=== PATIENT | female | born 1935 | race Caucasian/White ===

== ENCOUNTER 2018-03-09 17:41 | Emergency (ER) | payer MEDICARE, OTHER ==
[2018-03-09 17:59] LABS: CHLORIDE,CL 103 mEq/L (98-106); SODIUM,NA 143 mEq/L (136-145)
--- NOTE | 2018-03-09 18:02 | EDM.PDOC ---
ED HPI GENERAL MEDICAL PROBLEM - General Chief Complaint: Head Injury Stated Complaint: fall with head trauma Time Seen by Provider: 03/09/18 17:45 Source of Information: Reports: Patient, EMS History Limitations: Reports: No Limitations - History of Present Illness INITIAL COMMENTS - FREE TEXT/NARRATIVE: Patient presents to ER after slipping on the ice and falling face forward outside the [place] in [place]. No loss of consciousness. Admits to mild discomfort to forehead, hematoma noted there with active bleeding on ambulance arrival. Bleeding has been controlled by EMS. Patient denies any chest discomfort, no shortness of breath, pelvic pain or leg pain. Was able to get up with assistance at that scene. Does have chronic shoulder discomfort, no worse now after the fall. Onset: Today, Sudden Duration: Minutes:, Improving Location: Reports: Head, Face Quality: Reports: Ache, Dull Severity: Mild Associated Symptoms: Denies: Confusion, Chest Pain, Cough, Fever/Chills, Loss of Appetite, Nausea/Vomiting, Shortness of Breath, Weakness Treatments CLINICAL APPLICATION CONSULTANT: Reports: Dressing(s) R forehead Pain Score (Numeric/FACES): 8 - Related Data Allergies Allergy/AdvReac Type Severity Reaction Status Date / Time No Known Allergies Allergy Verified 03/09/18 18:52 Home Meds: Home Meds Amoxicillin/Clavulanate K [Augmentin 875 MG] 1 tab PO BID PRN 07/21/13 [History] Aspirin [Halfprin] 81 mg PO DAILY 07/21/13 [History] Calcium Carbonate/Vitamin D3 [Calcium 600 + Vit D Tablet] 1 each PO DAILY [History] Carvedilol 6.25 mg PO BID 07/21/13 [History] Cholecalciferol (Vitamin D3) [Vitamin D3] 2,000 unit PO DAILY 07/21/13 [History] DULoxetine [Cymbalta] 60 mg PO DAILY 07/21/13 [History] Furosemide 40 mg PO BID 07/21/13 [History] Gabapentin 300 mg PO TID PRN 07/21/13 [History] Magnesium 500 mg PO DAILY 07/21/13 [History] Quinapril HCl 5 mg PO BID 07/21/13 [History] SitaGLIPtin [Januvia] 100 mg PO DAILY 07/21/13 [History] Vitamin B Complex [B Complex] 1 each PO DAILY 07/21/13 [History] atorvaSTATin Calcium [Atorvastatin Calcium] 20 mg PO DAILY 07/21/13 [History] Warfarin [Coumadin] 5 mg PO DAILY #0 03/21/15 [Rx] Multivitamin [Multivitamins] 1 cap PO DAILY 03/09/18 [History] Nitroglycerin [Nitrostat] 0.4 mg SL ASDIRECTED PRN 03/09/18 [History] Potassium Chloride [Micro-K] 10 meq PO BID 03/09/18 [History] Warfarin [Coumadin] 2.5 mg PO DAILY 03/09/18 [History] metOLazone [Metolazone] 2.5 mg PO DAILY PRN 03/09/18 [History] ED ROS GENERAL - Review of Systems Review Of Systems: See Below Constitutional: Denies: Fever, Chills, Malaise, Weakness, Fatigue, Decreased Appetite HEENT: Denies: Ear Discharge, Nosebleed, Rhinitis, Throat Pain, Vision Change Respiratory: Denies: Shortness of Breath, Cough Cardiovascular: Denies: Chest Pain, Edema, Lightheadedness Endocrine: Denies: Fatigue GI/Abdominal: Denies: Abdominal Pain, Nausea, Vomiting : Reports: No Symptoms Musculoskeletal: Reports: Shoulder Pain Skin: Reports: Bruising, Wound Neurological: Denies: Confusion, Dizziness, Headache, Syncope, Trouble Speaking , Difficulty Walking, Change in Speech, Gait Disturbance ED EXAM, HEAD INJURY - Physical Exam Exam: See Below Text/Narrative:: Patient presents to ER per EMS Primary survey: Airway patent, lungs clear. Vital signs stable No pelvic pain with palpation GCS 15 Exam Limited By: No Limitations General Appearance: Alert, WD/WN, No Apparent Distress Head: Scalp Abrasions, Scalp Hematoma, Scalp Tenderness Nexus Criteria: No: Posterior, Midline Cervical Tenderness, Evidence of Intoxication, Altered Level of Consciousness, Focal Neurological Deficit, Painful Distraction Injuries Eyes: Bilateral Eye: EOMI, PERRL Ears: Normal External Exam, Normal TMs Nose: Normal Inspection, Normal Mucousa, No Blood Throat/Mouth: Normal Inspection, Normal Oropharynx Neck: Non-Tender, Full Range of Motion Respiratory: No Respiratory Distress, Lungs Clear, Normal Breath Sounds Cardiovascular: Regular Rate, Rhythm GI/Abdominal Exam: Normal Bowel Sounds, Soft, Non-Tender Back Exam: Normal Inspection Extremities: Normal Inspection, Normal Range of Motion Neurologic: tactical air control party II-XII nml As Tested, No Motor/Sensory Deficits, Alert, Normal Mood/Affect, Oriented x 3 Skin: Other (small hematoma to forehead with superficial abrasion, no active bleeding noted.) - Anca Coma Score Best Eye Response (Anca): (4) Open Spontaneously Best Verbal Response (Anca): (5) Oriented Best Motor Response (Anca): (6) Obeys Commands Course - Vital Signs Last Recorded V/S: Last Vital Signs Temp 97.4 F 03/09/18 18:00 Pulse 70 03/09/18 18:00 Resp 20 03/09/18 18:00 BP 112/54 L 03/09/18 18:00 Pulse Ox 97 03/09/18 18:00 - Orders/Labs/Meds Orders: Active Orders 24 hr Category Date Time Status Cervical Spine wo Cont [CT] Stat Exams 03/09/18 17:54 Taken Chest 2V [CR] Stat Exams 03/09/18 17:54 Taken Head wo Cont [CT] Stat Exams 03/09/18 18:26 Taken Pelvis 1V or 2V [CR] Stat Exams 03/09/18 17:54 Taken Labs: Laboratory Tests 03/09/18 03/09/18 03/09/18 Range/Units 17:46 17:46 17:46 WBC 7.9 (5.0-10.0) 10^3/uL RBC 4.02 (4.00-5.50) 10^6/uL Hgb 11.8 L (12.0-16.0) g/dL Hct 36.8 L (37.0-47.0) % MCV 91.5 (82.0-94.0) fL MCH 29.4 (27.0-32.0) pg MCHC 32.1 L (33.0-38.0) g/dL RDW Coeff of Zia 14.9 (11.0-15.0) % Plt Count 202 (150-400) 10^3/uL Neut % (Auto) 58.1 (35-85) % Lymph % (Auto) 20.5 (10-55) % [place] % (Auto) 15.9 (0-16) % Eos % (Auto) 4.4 (0-5) % Baso % (Auto) 1.1 (0-3) % Neut # (Auto) 4.58 (1.80-7.00) 10^3/uL Lymph # (Auto) 1.62 (1.00-4.80) 10^3/uL [place] # (Auto) 1.26 H (0.00-0.80) 10^3/uL Eos # (Auto) 0.35 (0.00-0.45) 10^3/uL Baso # (Auto) 0.09 10^3/uL PT 28.8 H (9.7-12.3) SEC INR 3.00 H (0.92-1.18) Sodium 143 (136-145) mEq/L Potassium 3.7 (3.5-5.0) mEq/L Chloride 103 (98-106) mEq/L Carbon Dioxide 32 (21-32) mmol/L BUN 22 H (7-18) mg/dL Creatinine 1.3 H (0.6-1.0) mg/dL Est Cr Clr Drug Dosing TNP Estimated GFR (MDRD) 39 L (>=60) mL/min Glucose 127 H (75-99) mg/dL Calcium 8.6 (8.4-10.1) mg/dL Amylase 30 (25-115) U/L - Re-Assessments/Exams Free Text/Narrative Re-Assessment/Exam: 03/09/18 19:29 Chest xray clear Pelvic xray clear CT scan of head and neck without acute changes. GCS still 15. Departure - Departure Time of Disposition: 19:30 Disposition: Home, Self-Care 01 Condition: Good Clinical Impression: Closed head injury Qualifiers: Encounter type: initial encounter Qualified Code(s): S09.90XA - Unspecified injury of head, initial encounter - Discharge Information *PRESCRIPTION DRUG MONITORING PROGRAM REVIEWED*: No *COPY OF PRESCRIPTION DRUG MONITORING REPORT IN PATIENT KARLY: No Instructions: Head Injury, Adult, [id number] Forms: ED Department Discharge Additional Instructions: 1. Rest 2. Ice to forehead 3. Head injury instructions~ return if changes 4. Tylenol as needed for headache 5. Call or return with any questions - My Orders Last 24 Hours: My Active Orders 03/09/18 17:54 Cervical Spine wo Cont [CT] Stat Chest 2V [CR] Stat Pelvis 1V or 2V [CR] Stat 03/09/18 18:26 Head wo Cont [CT] Stat - Assessment/Plan Last 24 Hours: My Active Orders 03/09/18 17:54 Cervical Spine wo Cont [CT] Stat Chest 2V [CR] Stat Pelvis 1V or 2V [CR] Stat 03/09/18 18:26 Head wo Cont [CT] Stat
[2018-03-09 18:16] VITALS: BP 112/54
[2018-03-09] MEDS ORDERED: Diphtheria,Pertussis(Acell),Tetanus Vaccine 0.5 ML Syringe IM ONE (19:38)
== END 2018-03-09 20:00 | disposition home or self-care (01) ==
LOC: CC.ED 17:41
DX: S00.83XA Contusion of other part of head, initial encounter (principal); S09.90XA Unspecified injury of head, initial encounter; Z79.82 Long term (current) use of aspirin; Z79.899 Other long term (current) drug therapy; Z79.01 Long term (current) use of anticoagulants; Z23 Encounter for immunization; W00.0XXA Fall on same level due to ice and snow, initial encounter
CPT/HCPCS: 36415; 70450; 71046; 72125; 72170; 80048; 82150; 85025; 85610; 90471; 90715; 99283; 99284

== ENCOUNTER 2019-06-24 14:23 | Emergency (ER) | payer MEDICARE, OTHER ==
--- NOTE | 2019-06-24 15:32 | EDM.PDOC ---
ED HPI GENERAL MEDICAL PROBLEM - General Chief Complaint: General Stated Complaint: fall with facial injuries Time Seen by Provider: 06/24/19 15:00 Source of Information: Reports: Patient History Limitations: Reports: No Limitations - History of Present Illness INITIAL COMMENTS - FREE TEXT/NARRATIVE: This patient is an 84 year old female that presents to the ER. Patient reports that she was walking into the garage and missed step down, fell one step. Patient reports landing on her left face. Patient reports left sided facial pain and tenderness with swelling. Patient reports that she knocked out her right two upper teeth. Patient reports she did not have loc. She denies leon, dizziness, n, v, vision changes, or other pain complaints. She is alert and oriented. No blood thinners. She arrives via EMS in [place]. Onset: Today Onset Date: 06/24/19 Location: Reports: Face Front/Back Body Image: 1 - laceration 2 - abrasion 3 - pain, swelling, tenderness, ecchymosis. Associated Symptoms: Denies: Confusion, Chest Pain, Cough, cough w sputum, Diaphoresis, Fever/Chills, Headaches, Loss of Appetite, Malaise, Nausea/Vomiting , Rash, Seizure, Shortness of Breath, Syncope, Weakness Treatments CASTINGS DRAFTER: Reports: Cold Therapy Face/Facial Pain Score (Numeric/FACES): 4 - Related Data Allergies Allergy/AdvReac Type Severity Reaction Status Date / Time No Known Allergies Allergy Verified 06/24/19 14:44 Home Meds: Home Meds Amoxicillin/Clavulanate K [Augmentin 875 MG] 1 tab PO BID PRN 07/21/13 [History] Aspirin [Halfprin] 81 mg PO DAILY 07/21/13 [History] Calcium Carbonate/Vitamin D3 [Calcium 600 + Vit D Tablet] 1 each PO DAILY [History] Cholecalciferol (Vitamin D3) [Vitamin D3] 2,000 unit PO DAILY 07/21/13 [History] DULoxetine [Cymbalta] 60 mg PO DAILY 07/21/13 [History] Furosemide 40 mg PO BID 07/21/13 [History] Gabapentin 300 mg PO TID PRN 07/21/13 [History] Magnesium 500 mg PO DAILY 07/21/13 [History] Quinapril HCl 5 mg PO DAILY 07/21/13 [History] SitaGLIPtin [Januvia] 100 mg PO DAILY 07/21/13 [History] Vitamin B Complex [B Complex] 1 each PO DAILY 07/21/13 [History] atorvaSTATin Calcium [Atorvastatin Calcium] 20 mg PO DAILY 07/21/13 [History] carvediloL [Carvedilol] 6.25 mg PO BID 07/21/13 [History] Multivitamin [Multivitamins] 1 cap PO DAILY 03/09/18 [History] Nitroglycerin [Nitrostat] 0.4 mg SL ASDIRECTED PRN 03/09/18 [History] Potassium Chloride [Micro-K] 10 meq PO BID 03/09/18 [History] metOLazone [Metolazone] 2.5 mg PO DAILY PRN 03/09/18 [History] Cephalexin [Keflex] 500 mg PO QID #28 capsule 06/24/19 [Rx] Pseudoephedrine HCl [Sudafed 12 Hour] 120 mg PO BID #14 tablet.er 06/24/19 [Rx] Social & Family History - Tobacco Use Smoking Status *Q: Never Smoker ED ROS GENERAL - Review of Systems Review Of Systems: See Below Constitutional: Reports: No Symptoms HEENT: Reports: Dental Pain (right upper teeth knocked out), Other (left facial pain, tenderness, swelling.). Denies: Vision Change Respiratory: Reports: No Symptoms. Denies: Shortness of Breath, Wheezing, Pleuritic Chest Pain, Cough Cardiovascular: Reports: No Symptoms. Denies: Chest Pain, Dyspnea on Exertion, Edema, Lightheadedness, Palpitations, Syncope Endocrine: Reports: No Symptoms GI/Abdominal: Reports: No Symptoms. Denies: Abdominal Pain, Nausea, Vomiting Musculoskeletal: Reports: No Symptoms. Denies: Neck Pain, Shoulder Pain, Arm Pain, Back Pain, Hand Pain, Leg Pain, Foot Pain, Joint Pain, Joint Swelling, Muscle Pain, Muscle Stiffness Skin: Reports: Bruising (left orbital), Wound (abrasion nasal birdge. Laceration above the lip right central, through and through inside mouth. Right hand small skin tear.) Neurological: Reports: No Symptoms Psychiatric: Reports: No Symptoms Hematologic/Lymphatic: Reports: No Symptoms Immunologic: Reports: No Symptoms ED EXAM, GENERAL - Physical Exam Exam: See Below Exam Limited By: No Limitations General Appearance: Alert, WD/WN, No Apparent Distress Eye Exam: Bilateral Eye: EOMI (left eye opened from swelling. ), Normal Inspection, PERRL Ears: Normal External Exam, Normal Canal, Hearing Grossly Normal, Normal TMs Ear Exam: Bilateral Ear: Auricle Normal, Canal Normal, TM normal Nose: Normal Mucosa, No Blood, Other (nasal abrasion right bridge.) Throat/Mouth: Normal Gums, Normal Oropharynx, Normal Voice, No Airway Compromise. No: Normal Lips (laceration just above central right external small , through and through into mouth upper lip.), Normal Teeth (missing extracted tooth right upper molar, and 2nd right upper molar fracture no exposed root.) Head: Facial Swelling (left orbital. Eccyhmosis.), Facial Tenderness (left orbital, inferior. ) Neck: Normal Inspection, Supple, Non-Tender, Other (in [place].). No: Tender Lateral, Tender Midline Respiratory/Chest: No Respiratory Distress, Lungs Clear, Normal Breath Sounds, No Accessory Muscle Use, Chest Non-Tender. No: Respiratory Distress, Decreased Breath Sounds, Crackles, Rales, Rhonchi, Wheezing, Stridor, Accessory Muscle Use , Retractions, Splinting, Prolonged Expiration Cardiovascular: Normal Peripheral Pulses, Regular Rate, Rhythm, No Edema, No Gallop, No JVD, No Rub, Systolic Murmur Peripheral Pulses: 2+: Radial (L), Radial (R), Posterior Tibial (L), Posterior Tibial (R), Dorsalis Pedis (L), Dorsalis Pedis (R) GI/Abdominal: Normal Bowel Sounds, Soft, Non-Tender, No Organomegaly, No Distention, No Abnormal Bruit, No Mass, Pelvis Stable Back Exam: Normal Inspection, Full Range of Motion. No: CVA Tenderness (L), CVA Tenderness (R), Decreased Range of Motion, Muscle Spasm, Paraspinal Tenderness, Vertebral Tenderness Extremities: Normal Inspection, Normal Range of Motion, Non-Tender, No Pedal Edema, Normal Capillary Refill. No: Pedal Edema, Slow Capillary Refill, Joint Swelling, Arm Pain, Leg Pain, Limited Range of Motion, Increased Warmth, Redness Neurological: Alert, Oriented, Normal Cognition, No Motor/Sensory Deficits Psychiatric: Normal Affect, Normal Mood Skin Exam: Warm, Dry, Normal Color, No Rash, Wound/Incision (laceration just above the central right lip small laceration through and through into upper lip inside. Abrasion right nasal bridge small. Right hand skin tear. ) Lymphatic: No Adenopathy ED GENERAL MEDICAL PROCEDURES - Laceration/Wound Repair Upper Mouth Lac/wound length in cm: 2 (inside mouth upper lip) Appearance: Subcutaneous Distal NVT: Neuro & Vascular Intact, No Tendon Injury Anesthetic Type: Local Local Anesthesia - Lidocaine (Xylocaine): 1% Plain Local Anesthetic Volume: 1cc Skin Prep: Chlorhexidine (Hibiciens) Saline irrigation (cc's): 10 Exploration/Debridement/Repair: Wound Explored, In a Bloodless Field, Explored to Base Closed with: Sutures Suture Size: 4-0 # of Sutures: 3 Suture Type: Simple, Other (Vicryl) Tetanus Status Addressed: Yes Complications: No Lower Face Lac/wound length in cm: 0.5 (upper lip external) Appearance: Subcutaneous Distal NVT: Neuro & Vascular Intact, No Tendon Injury Anesthetic Type: Local Local Anesthesia - Lidocaine (Xylocaine): 1% Plain Local Anesthetic Volume: 1cc Skin Prep: Chlorhexidine (Hibiciens) Saline irrigation (cc's): 10 Exploration/Debridement/Repair: Wound Explored, In a Bloodless Field, Explored to Base Closed with: Sutures Suture Size: 4-0 # of Sutures: 2 Suture Type: Simple, Other (Vicryl) Tetanus Status Addressed: Yes Complications: No Course - Vital Signs Last Recorded V/S: Last Vital Signs Temp 97.1 F 06/24/19 14:35 Pulse 65 06/24/19 15:53 Resp 16 06/24/19 15:53 BP 143/65 H 06/24/19 15:53 Pulse Ox 95 06/24/19 15:53 - Orders/Labs/Meds Orders: Active Orders 24 hr Category Date Time Status Cervical Spine wo Cont [CT] Stat Exams 06/24/19 15:14 Taken Head wo Cont [CT] Stat Exams 06/24/19 15:14 Taken Max Facial Sinus wo Cont [CT] Stat Exams 06/24/19 15:14 Taken Labs: Laboratory Tests 06/24/19 06/24/19 Range/Units 16:54 16:54 WBC 12.2 H (5.0-10.0) 10^3/uL RBC 4.25 (4.00-5.50) 10^6/uL Hgb 11.9 L (12.0-16.0) g/dL Hct 37.2 (37.0-47.0) % MCV 87.5 (82.0-94.0) fL MCH 28.0 (27.0-32.0) pg MCHC 32.0 L (33.0-38.0) g/dL RDW Coeff of Zia 18.4 H (11.0-15.0) % Plt Count 177 (150-400) 10^3/uL Neut % (Auto) 76.7 (35-85) % Lymph % (Auto) 9.7 L (10-55) % [place] % (Auto) 10.8 (0-16) % Eos % (Auto) 2.3 (0-5) % Baso % (Auto) 0.5 (0-3) % Neut # (Auto) 9.33 H (1.80-7.00) 10^3/uL Lymph # (Auto) 1.18 (1.00-4.80) 10^3/uL [place] # (Auto) 1.32 H (0.00-0.80) 10^3/uL Eos # (Auto) 0.28 (0.00-0.45) 10^3/uL Baso # (Auto) 0.06 10^3/uL Sodium 143 (136-145) mEq/L Potassium 3.3 L (3.5-5.0) mEq/L Chloride 101 (98-106) mEq/L Carbon Dioxide 32 (21-32) mmol/L BUN 27 H (7-18) mg/dL Creatinine 1.1 H (0.6-1.0) mg/dL Est Cr Clr Drug Dosing 40.50 mL/min Estimated GFR (MDRD) 47 L (>=60) mL/min Glucose 162 H (75-99) mg/dL Calcium 8.8 (8.4-10.1) mg/dL Total Bilirubin 1.3 H (0.0-1.0) mg/dL AST 20 (15-37) U/L ALT 14 (12-78) U/L Alkaline Phosphatase 123 H (46-116) U/L Total Protein 7.0 (6.4-8.2) g/dL Albumin 3.1 L (3.4-5.0) g/dL Meds: Medications Discontinued Medications Generic Name Dose Route Start Last Admin Trade Name Misty PRN Reason Stop Dose Admin Lidocaine HCl 20 ml 06/24/19 17:49 06/24/19 18:30 Xylocaine 1% INJECT 06/24/19 17:50 20 ml ONETIME ONE Administration - Re-Assessments/Exams Free Text/Narrative Re-Assessment/Exam: 06/24/19 17:45 Patient ambulated to the bathroom without difficulty. I discussed patient case and read radiology impression report to Dr. Olson facial surgeon at [facility]. He reports he will see patient Thursday in office. I will discharge patient, see discharge instructions for instructions from Dr. Olson. [place] removed ROM intact. No stepoffs Departure - Departure Time of Disposition: 18:54 Disposition: Home, Self-Care 01 Condition: Fair Clinical Impression: Orbital fracture Qualifiers: Encounter type: initial encounter Fracture type: closed Qualified Code(s): S02.85XA - Fracture of orbit, unspecified, initial encounter for closed fracture Maxillary fracture Qualifiers: Encounter type: initial encounter Fracture type: closed Laterality: left Qualified Code(s): S02.40DA - Maxillary fracture, left side, initial encounter for closed fracture Nasal fracture Qualifiers: Encounter type: initial encounter Fracture type: closed Qualified Code(s): S02.2XXA - Fracture of nasal bones, initial encounter for closed fracture Closed head injury Qualifiers: Encounter type: initial encounter Qualified Code(s): S09.90XA - Unspecified injury of head, initial encounter - Discharge Information *PRESCRIPTION DRUG MONITORING PROGRAM REVIEWED*: Not Applicable *COPY OF PRESCRIPTION DRUG MONITORING REPORT IN PATIENT KARLY: Not Applicable Prescriptions: Cephalexin [Keflex] 500 mg PO QID #28 capsule Pseudoephedrine HCl [Sudafed 12 Hour] 120 mg PO BID #14 tablet.er Instructions: Orbital Floor Fracture Without Entrapment, Zygoma Fracture, Nasal Fracture, [id number], Laceration Care, Adult, Head Injury, Adult, Easy- to-Read, Mouth Laceration Referrals: Jessie Mak PA [Primary Care Provider] - Forms: ED Department Discharge Additional Instructions: Followup with Dr. Olson facial surgeon [facility] His office number is : [phone] Call his office Thursday, tell the nurse you need to be seen Thursday by Dr. Olson Call your dentist Thursday Wash cloth, water, then freezer: Apply to center of face: Keep head elevated, do not sleep or lay flat DO NOT BLOW NOSE FOR 2 WEEKS DO NOT SNEEZE: IF HAVE TO SNEEZE, OPEN MOUTH Keflex 500mg 1 pill four times a day for 7 days #28 no refill Sudafed 120mg ER twice a day #14 no refill Story 5/325mg 1-2 pills every 4-6 hours for pain #24 no refill Sepsis Event Note - Evaluation Sepsis Screening Result: No Definite Risk - Focused Exam Vital Signs: Vital Signs Temp Pulse Resp BP Pulse Ox 06/24/19 15:53 65 16 143/65 H 95 06/24/19 14:57 72 16 147/63 H 94 L 06/24/19 14:35 97.1 F 79 16 144/75 H 16 L Date Exam was Performed: 06/24/19 Time Exam was Performed: 18:51 - My Orders Last 24 Hours: My Active Orders 06/24/19 15:14 Cervical Spine wo Cont [CT] Stat Head wo Cont [CT] Stat Max Facial Sinus wo Cont [CT] Stat - Assessment/Plan Last 24 Hours: My Active Orders 06/24/19 15:14 Cervical Spine wo Cont [CT] Stat Head wo Cont [CT] Stat Max Facial Sinus wo Cont [CT] Stat Plan: PLEASE SEE RN NOTE FOR PFSH.
[2019-06-24 15:55] VITALS: BP 143/65; PULSE 65
[2019-06-24] MEDS: Lidocaine 1% 20 ML MDV INJECT ONE (18:30)
== END 2019-06-24 19:00 | disposition home or self-care (01) ==
LOC: CC.ED 14:23
DX: S02.85XA Fracture of orbit, unspecified, initial encounter for closed fracture (principal); S02.40DA Maxillary fracture, left side, initial encounter for closed fracture; S02.2XXA Fracture of nasal bones, initial encounter for closed fracture; S01.511A Laceration without foreign body of lip, initial encounter; S09.90XA Unspecified injury of head, initial encounter; Z79.82 Long term (current) use of aspirin; Z79.899 Other long term (current) drug therapy; W18.30XA Fall on same level, unspecified, initial encounter
CPT/HCPCS: 12011; 36415; 70450; 70486; 72125; 80053; 85025; 99283; 99284-25; J2001

== ENCOUNTER 2019-07-25 12:35 | Emergency (ER) | payer MEDICARE, OTHER ==
[2019-07-25 13:01] VITALS: PULSE 72
--- NOTE | 2019-07-25 13:21 | EDM.PDOC ---
ED HPI GENERAL MEDICAL PROBLEM - General Chief Complaint: Head Injury Stated Complaint: fall Time Seen by Provider: 07/25/19 12:55 Source of Information: Reports: Patient, RN History Limitations: Reports: No Limitations - History of Present Illness INITIAL COMMENTS - FREE TEXT/NARRATIVE: Pt tripped on cement and fell forward on to face. She is not on any blood thinners. She denies any LOC. She did not want to b brought in but ambulance personnel felt she should be checked out. She has bruising to the right cheek above right eye and bridge of nose. She had tripped about 2 weeks ago and had a nose fracture at that time and broken facial bone o the left. She states that the bruise on her nose is still from that episode. She has swelling to the right cheek bone and ecchymosis to the area. She knocked out the same 2 teeth that she knocked out the last time. (She does have them with her). She denies any neck pain, no chest wall pain, hip, back or extremity pain to any area. GCS is 15 on admission. No bleeding noted. Onset: Today Location: Reports: Face Quality: Reports: Ache Associated Symptoms: Denies: Confusion, Chest Pain Right Cheek Pain Score (Numeric/FACES): 2 - Related Data Allergies Allergy/AdvReac Type Severity Reaction Status Date / Time No Known Allergies Allergy Verified 07/25/19 12:44 Home Meds: Home Meds Amoxicillin/Clavulanate K [Augmentin 875 MG] 1 tab PO BID PRN 07/21/13 [History] Aspirin [Halfprin] 81 mg PO DAILY 07/21/13 [History] Calcium Carbonate/Vitamin D3 [Calcium 600 + Vit D Tablet] 1 each PO DAILY [History] Cholecalciferol (Vitamin D3) [Vitamin D3] 2,000 unit PO DAILY 07/21/13 [History] DULoxetine [Cymbalta] 60 mg PO DAILY 07/21/13 [History] Furosemide 40 mg PO BID 07/21/13 [History] Gabapentin 300 mg PO TID PRN 07/21/13 [History] Magnesium 500 mg PO DAILY 07/21/13 [History] Quinapril HCl 5 mg PO DAILY 07/21/13 [History] SitaGLIPtin [Januvia] 100 mg PO DAILY 07/21/13 [History] Vitamin B Complex [B Complex] 1 each PO DAILY 07/21/13 [History] atorvaSTATin Calcium [Atorvastatin Calcium] 20 mg PO DAILY 07/21/13 [History] carvediloL [Carvedilol] 6.25 mg PO BID 07/21/13 [History] Multivitamin [Multivitamins] 1 cap PO DAILY 03/09/18 [History] Nitroglycerin [Nitrostat] 0.4 mg SL ASDIRECTED PRN 03/09/18 [History] Potassium Chloride [Micro-K] 10 meq PO BID 03/09/18 [History] metOLazone [Metolazone] 2.5 mg PO DAILY PRN 03/09/18 [History] Pseudoephedrine HCl [Sudafed 12 Hour] 120 mg PO BID #14 tablet.er 06/24/19 [Rx] Past Medical History HEENT History: Reports: Cataract Cardiovascular History: Reports: Blood Clots/VTE/DVT, High Cholesterol, Hypertension, Pacemaker Gastrointestinal History: Reports: Cholelithiasis Genitourinary History: Reports: Urinary Incontinence [employer] PU[employer]ER History: Reports: Fibroids Musculoskeletal History: Reports: Osteoarthritis, Osteoporosis Endocrine/Metabolic History: Reports: Diabetes, Type II, Osteoporosis, Vitamin D Deficiency Oncologic (Cancer) History: Reports: Lymphoma - Past Surgical History HEENT Surgical History: Reports: Cataract Surgery Cardiovascular Surgical History: Reports: Valve Replacement GI Surgical History: Reports: Appendectomy, Cholecystectomy, Other (See Below) Other GI Surgeries/Procedures: splenectomy Female Surgical History: Reports: Hysterectomy, Other (See Below) Other Female Surgeries/Procedures: hysterectomy secondary to uterine fibroids Musculoskeletal Surgical History: Reports: Arthroscopic Knee, Other (See Below) Other Musculoskeletal Surgeries/Procedures:: states her left shoulder is "shot" secondary to arthritis; states "should be replaced" Social & Family History - Tobacco Use Smoking Status *Q: Never Smoker - Living Situation & Occupation Living situation: Reports: , Alone Occupation: Retired ED ROS GENERAL - Review of Systems Review Of Systems: See Below Constitutional: Denies: Fever, Chills HEENT: Reports: Other (see HPI) Respiratory: Reports: No Symptoms Cardiovascular: Reports: No Symptoms GI/Abdominal: Reports: No Symptoms Musculoskeletal: Denies: Neck Pain, Shoulder Pain, Arm Pain, Back Pain, Hand Pain, Leg Pain Skin: Reports: Wound (right cheek abrasion and bruising and swelling.) Neurological: Denies: Confusion, Dizziness, Headache, Numbness, Weakness Psychiatric: Reports: No Symptoms ED EXAM, HEAD INJURY - Physical Exam Exam: See Below Exam Limited By: No Limitations General Appearance: Alert, WD/WN, Mild Distress Head: Facial Ecchymosis (right cheek and around right eye.), Facial Lacerations (small abrasion to the right facial area.), Facial Swelling (right side of face) , Facial Tenderness. No: Scalp Lacerations, Scalp Swelling, Active Bleeding, Eugene's Sign, Sinus Tenderness Nexus Criteria: No: Posterior, Midline Cervical Tenderness, Evidence of Intoxication, Altered Level of Consciousness, Focal Neurological Deficit, Painful Distraction Injuries Ears: Normal External Exam, Normal Canal, Normal TMs Nose: Nasal Swelling (bruising across the bridge of nose from previous fall and nasal fracture.), Nasal Ecchymosis. No: Septal Deformity Throat/Mouth: Normal Inspection, Normal Oropharynx, Normal Voice, No Airway Compromise Neck: Non-Tender, Full Range of Motion, Normal Alignment, Normal Inspection Respiratory: No Respiratory Distress, Lungs Clear, Normal Breath Sounds Cardiovascular: Normal Peripheral Pulses, No Edema, Irregularly Irregular GI/Abdominal Exam: Normal Bowel Sounds, Soft, Non-Tender Back Exam: Normal Inspection Extremities: Normal Inspection, Normal Range of Motion, Non-Tender, Normal Capillary Refill Neurologic: Alert, Normal Mood/Affect, Oriented x 3 Skin: Normal Color, Warm/Dry - Anca Coma Score Best Eye Response (Anca): (4) Open Spontaneously Best Verbal Response (Anca): (5) Oriented Best Motor Response ([place]): (6) Obeys Commands Anca Total: 15 Course - Vital Signs Last Recorded V/S: Last Vital Signs Temp 98 F 07/25/19 12:49 Pulse 72 07/25/19 12:49 Resp 16 07/25/19 12:49 BP 151/84 H 07/25/19 12:49 Pulse Ox 93 L 07/25/19 12:49 - Orders/Labs/Meds Orders: Active Orders 24 hr Category Date Time Status Max Facial Sinus wo Cont [CT] Stat Exams 07/25/19 12:43 Taken - Re-Assessments/Exams Free Text/Narrative Re-Assessment/Exam: 07/25/19 13:[address] scan as reported by radiologist as no new fractures at this time. Previous fractures are healing. GCS on discharge is 15. Departure - Departure Time of Disposition: 13:34 Disposition: Home, Self-Care 01 Condition: Good Clinical Impression: Fall (on)(from) sidewalk curb, initial encounter - Discharge Information *PRESCRIPTION DRUG MONITORING PROGRAM REVIEWED*: Not Applicable *COPY OF PRESCRIPTION DRUG MONITORING REPORT IN PATIENT KARLY: Not Applicable Instructions: Facial or Scalp Contusion, [id number] Referrals: Jessie Mak PA [Primary Care Provider] - Additional Instructions: Tylenol as needed for discomfort Use cane when up and especially when outside Recheck if any new concerns noted. Ice to face to help with swelling. Sepsis Event Note - Evaluation Sepsis Screening Result: No Definite Risk - Focused Exam Vital Signs: Vital Signs Temp Pulse Resp BP Pulse Ox 07/25/19 12:49 98 F 72 16 151/84 H 93 L Date Exam was Performed: 07/25/19 Time Exam was Performed: 13:14 - Problem List & Annotations (1) Fall (on)(from) sidewalk curb, initial encounter SNOMED Code(s): 343660837 Code(s): W10.1XXA - FALL (ON)(FROM) SIDEWALK CURB, INITIAL ENCOUNTER Status : Acute Current Visit: Yes - My Orders Last 24 Hours: My Active Orders 07/25/19 12:43 Max Facial Sinus wo Cont [CT] Stat - Assessment/Plan Last 24 Hours: My Active Orders 07/25/19 12:43 Max Facial Sinus wo Cont [CT] Stat
[2019-07-25 13:27] VITALS: BP 154/88
== END 2019-07-25 14:01 | disposition home or self-care (01) ==
LOC: CC.ED 12:35
DX: S01.81XA Laceration without foreign body of other part of head, initial encounter (principal); I10 Essential (primary) hypertension; E11.9 Type 2 diabetes mellitus without complications; E78.00 Pure hypercholesterolemia, unspecified; M19.90 Unspecified osteoarthritis, unspecified site; Z86.718 Personal history of other venous thrombosis and embolism; Z79.82 Long term (current) use of aspirin; Z79.899 Other long term (current) drug therapy; W10.1XXA Fall (on)(from) sidewalk curb, initial encounter
CPT/HCPCS: 70486; 99284; 99284-25

== ENCOUNTER 2020-06-10 13:33 | Emergency (ER) | payer MEDICARE, OTHER ==
[2020-06-10 13:43] VITALS: PULSE 70
[2020-06-10 13:56] VITALS: BP 161/79
--- NOTE | 2020-06-10 15:08 | EDM.PDOC ---
ED HPI GENERAL MEDICAL PROBLEM - General Chief Complaint: General Stated Complaint: swollen legs, L) arm pain and swelling Time Seen by Provider: 06/10/20 13:55 Source of Information: Reports: Patient History Limitations: Reports: No Limitations - History of Present Illness INITIAL COMMENTS - FREE TEXT/NARRATIVE: Roseline presents to ER with complaints of left upper arm pain. Had fallen this last Thursday and has noted that the "lump" on her arm is worsening and now there is bruising down her forearm. Has arthritis and limited range of motion of her shoulder normally, more discomfort now. Has "a floor burn" to her left shoulder. Also relates that she has noticed increased swelling in her legs. Did contact Dr. García office as has been building up over the last few weeks. He advised her he would like to see her when he comes to [place]. She did take a Metolazone yesterday as thought it may help the swelling. Does have dyspnea with exertion but does not feel that is any different than her norm. No shortness of breath at rest. States her legs are more tight than normal. Onset: Gradual Duration: Day(s):, Getting Worse Location: Reports: Upper Extremity, Left, Lower Extremity, Left, Lower Extremity, Right Quality: Reports: Ache Severity: Mild Improves with: Reports: Movement Associated Symptoms: Reports: Shortness of Breath. Denies: Confusion, Chest Pain, Cough, Fever/Chills, Loss of Appetite, Nausea/Vomiting Left Arm Pain Score (Numeric/FACES): 4 Bilateral Lower Leg Pain Score (Numeric/FACES): 2 - Related Data Allergies Allergy/AdvReac Type Severity Reaction Status Date / Time No Known Allergies Allergy Verified 06/10/20 13:34 Home Meds: Home Meds Aspirin [Halfprin] 81 mg PO DAILY 07/21/13 [History] Calcium Carbonate/Vitamin D3 [Calcium 600 + Vit D Tablet] 1 each PO DAILY 07/21/13 [History] Cholecalciferol (Vitamin D3) [Vitamin D3] 2,000 unit PO DAILY 07/21/13 [History] DULoxetine [Cymbalta] 60 mg PO DAILY 07/21/13 [History] Furosemide 40 mg PO BID 07/21/13 [History] Gabapentin 300 mg PO TID PRN 07/21/13 [History] Magnesium 500 mg PO DAILY 07/21/13 [History] Quinapril HCl 5 mg PO DAILY 07/21/13 [History] SitaGLIPtin [Januvia] 100 mg PO DAILY 07/21/13 [History] Vitamin B Complex [B Complex] 1 each PO DAILY 07/21/13 [History] atorvaSTATin Calcium [Atorvastatin Calcium] 20 mg PO DAILY 07/21/13 [History] carvediloL [Carvedilol] 6.25 mg PO BID 07/21/13 [History] Multivitamin [Multivitamins] 1 cap PO DAILY 03/09/18 [History] Nitroglycerin [Nitrostat] 0.4 mg SL ASDIRECTED PRN 03/09/18 [History] Potassium Chloride [Micro-K] 10 meq PO BID 03/09/18 [History] metOLazone [Metolazone] 2.5 mg PO DAILY PRN 03/09/18 [History] Past Medical History HEENT History: Reports: Cataract Cardiovascular History: Reports: Blood Clots/VTE/DVT, High Cholesterol, Hyperten gage, Pacemaker Gastrointestinal History: Reports: Cholelithiasis Genitourinary History: Reports: Urinary Incontinence [employer]LE[employer] WORKER History: Reports: Fibroids Musculoskeletal History: Reports: Osteoarthritis, Osteoporosis Psychiatric History: Reports: Anxiety Endocrine/Metabolic History: Reports: Diabetes, Type II, Osteoporosis, Vitamin D Deficiency Oncologic (Cancer) History: Reports: Lymphoma - Past Surgical History HEENT Surgical History: Reports: Cataract Surgery, Naso-Sinus Surgery Cardiovascular Surgical History: Reports: Valve Replacement GI Surgical History: Reports: Appendectomy, Cholecystectomy, Other (See Below) Other GI Surgeries/Procedures: splenectomy Female Surgical History: Reports: Hysterectomy, Other (See Below) Other Female Surgeries/Procedures: hysterectomy secondary to uterine fibroids Musculoskeletal Surgical History: Reports: Arthroscopic Knee, Other (See Below) Other Musculoskeletal Surgeries/Procedures:: states her left shoulder is "shot" secondary to arthritis; states "should be replaced" Social & Family History - Family History Family Medical History: No Pertinent Family History - Tobacco Use Tobacco Use Status *Q: Never Tobacco User Second Hand Smoke Exposure: No - Caffeine Use Caffeine Use: Reports: None - Recreational Drug Use Recreational Drug Use: No - Living Situation & Occupation Living situation: Reports: , Alone Occupation: Retired ED ROS GENERAL - Review of Systems Review Of Systems: See Below Constitutional: Reports: Weakness. Denies: Fever, Chills, Malaise, Fatigue HEENT: Denies: Ear Pain, Sinus Problem, Throat Pain, Vertigo Respiratory: Denies: Shortness of Breath Cardiovascular: Reports: Dyspnea on Exertion (chronic in nature), Edema. Denies: Chest Pain, Blood Pressure Problem, Lightheadedness Endocrine: Reports: Fatigue GI/Abdominal: Denies: Abdominal Pain, Nausea, Vomiting : Reports: No Symptoms Musculoskeletal: Reports: Arm Pain Skin: Reports: Bruising Neurological: Reports: Weakness Psychiatric: Reports: No Symptoms ED EXAM, GENERAL - Physical Exam Exam: See Below Exam Limited By: No Limitations General Appearance: Alert, WD/WN, No Apparent Distress Ears: Normal External Exam, Normal TMs Nose: Normal Inspection, Normal Mucosa, No Blood Throat/Mouth: Normal Inspection, Other (mucous membranes dry) Head: Normocephalic Neck: Normal Inspection, Supple, Non-Tender Respiratory/Chest: Decreased Breath Sounds Cardiovascular: Irregularly Irregular GI/Abdominal: Normal Bowel Sounds, Soft, Non-Tender Extremities: Other (left upper arm does have large hematoma, bruising down to forearm. Tender to mid humerus. Has limited range of motion to left shoulder, abrasion and redness to posterior shoulder region. Crepitus noted to left shoulder with movement) Neurological: Alert, Oriented Skin Exam: Warm, Dry, Ecchymosis Course - Vital Signs Last Recorded V/S: Last Vital Signs Temp 96.8 F L 06/10/20 13:39 Pulse 70 06/10/20 13:39 Resp 18 06/10/20 13:39 BP 161/79 H 06/10/20 13:56 Pulse Ox 94 L 06/10/20 13:39 - Orders/Labs/Meds Orders: Active Orders 24 hr Category Date Time Status Chest 2V [CR] Stat Exams 06/10/20 14:12 Taken Humerus Lt [CR] Stat Exams 06/10/20 14:07 Taken Labs: Laboratory Tests 06/10/20 06/10/20 Range/Units 13:52 13:52 WBC 7.3 (5.0-10.0) 10^3/uL RBC 4.06 (4.00-5.50) 10^6/uL Hgb 11.7 L (12.0-16.0) g/dL Hct 35.5 L (37.0-47.0) % MCV 87.4 (82.0-94.0) fL MCH 28.8 (27.0-32.0) pg MCHC 33.0 (33.0-38.0) g/dL RDW Coeff of Zia 18.8 H (11.0-15.0) % Plt Count 174 (150-400) 10^3/uL Neut % (Auto) 64.6 (35-85) % Lymph % (Auto) 16.0 (10-55) % Converse % (Auto) 15.6 (0-16) % Eos % (Auto) 3.0 (0-5) % Baso % (Auto) 0.8 (0-3) % Neut # (Auto) 4.70 (1.80-7.00) 10^3/uL Lymph # (Auto) 1.17 (1.00-4.80) 10^3/uL [place] # (Auto) 1.14 H (0.00-0.80) 10^3/uL Eos # (Auto) 0.22 (0.00-0.45) 10^3/uL Baso # (Auto) 0.06 10^3/uL Sodium 144 (136-145) mEq/L Potassium 3.7 (3.5-5.0) mEq/L Chloride 103 (98-106) mEq/L Carbon Dioxide 29 (21-32) mmol/L BUN 20 H (7-18) mg/dL Creatinine 1.2 H (0.6-1.0) mg/dL Est Cr Clr Drug Dosing 35.20 mL/min Estimated GFR (MDRD) 43 L (>=60) mL/min Glucose 133 H D (75-99) mg/dL Calcium 8.9 (8.4-10.1) mg/dL NT-Pro-B Natriuret Pep 7294 H (0-1000) pg/mL - Re-Assessments/Exams Free Text/Narrative Re-Assessment/Exam: 06/10/20 15:03 Labs reviewed. Creatinine is stable, pro BNP is elevatedm will have patient take her metolazone daily for 5 days total. Did take a dose yesterday, will have her take it this afternoon prior to her Lasix and then for 3 more days. Follow up with Dr. gonzalez on as needed. Advised to use heating pad to large hematoma on arm. Departure - Departure Time of Disposition: 15:04 Disposition: Home, Self-Care 01 Condition: Fair Clinical Impression: CHF, Congestive heart failure, Hematoma - Discharge Information *PRESCRIPTION DRUG MONITORING PROGRAM REVIEWED*: No *COPY OF PRESCRIPTION DRUG MONITORING REPORT IN PATIENT KARLY: No Instructions: Heart Failure, Diagnosis, [id number] Referrals: Ernie Gonzalez MD [Primary Care Provider] - Forms: ED Department Discharge Additional Instructions: 1. Rest 2. Richard wrap to arm, if gets too tight or causes discomfort, may remove. 3. Elevate left arm on pillow and apply heat for 20 minutes every 2 hours today and tomorrow 4. elevate legs 5. Watch salt intake 6. Take Metolazone 2.5 mg daily for total of 5 days. (First dose done yesterday, take 30 minutes prior to Lasix today and in am 30 minutes prior to am dose of lasix) 7. daily weights 8. If develop more shortness of breath, may need to return back to ER or be seen by Dr. Gonzalez 9. Notify Dr. Wright of persisting concerns. Sepsis Event Note (ED) - Evaluation Sepsis Screening Result: No Definite Risk - Focused Exam Vital Signs: Vital Signs Temp Pulse Resp BP Pulse Ox 06/10/20 13:56 161/79 H 06/10/20 13:39 96.8 F L 70 18 185/95 H 94 L - My Orders Last 24 Hours: My Active Orders 06/10/20 14:07 Humerus Lt [CR] Stat 06/10/20 14:12 Chest 2V [CR] Stat - Assessment/Plan Last 24 Hours: My Active Orders 06/10/20 14:07 Humerus Lt [CR] Stat 06/10/20 14:12 Chest 2V [CR] Stat
== END 2020-06-10 15:34 | disposition home or self-care (01) ==
LOC: CC.ED 13:33
DX: S40.022A Contusion of left upper arm, initial encounter (principal); S50.12XA Contusion of left forearm, initial encounter; I11.0 Hypertensive heart disease with heart failure; I50.9 Heart failure, unspecified; E78.00 Pure hypercholesterolemia, unspecified; M19.90 Unspecified osteoarthritis, unspecified site; E11.9 Type 2 diabetes mellitus without complications; Z79.84 Long term (current) use of oral hypoglycemic drugs; Z79.899 Other long term (current) drug therapy; Z79.82 Long term (current) use of aspirin; W19.XXXA Unspecified fall, initial encounter
CPT/HCPCS: 36415; 71046; 73060-LT; 80048; 83880; 85025; 99284; 99285-25

== ENCOUNTER 2020-06-18 16:32 | Inpatient (IN) | payer MEDICARE, OTHER ==
[2020-06-18] MEDS ORDERED: Sodium Chloride 0.9% 10 ML Syringe FLUSH PRN (16:58)
[2020-06-18] MEDS ORDERED: Acetaminophen/oxyCODONE 325-5 MG Tab PO PRN (16:58)
[2020-06-18] MEDS ORDERED: Ondansetron 4 MG Tab.DIS PO PRN (16:58)
[2020-06-18] MEDS ORDERED: Zolpidem 5 MG Tab PO PRN (16:58)
[2020-06-18] MEDS ORDERED: Nitroglycerin 0.4 MG Tab.SL SL PRN (17:16)
[2020-06-18] MEDS: cefTRIAXone 1 GM Vial IVPUSH SCH (17:36)
[2020-06-18] MEDS: Potassium Chloride 10 MEQ Tab.ER PO SCH (17:52)
[2020-06-18] MEDS: Enoxaparin 30 MG/0.3 ML Syringe SUBCUT SCH (17:52)
[2020-06-18] MEDS: Carvedilol 3.125 MG Tab PO SCH (19:57)
[2020-06-18] MEDS ORDERED: Carvedilol 12.5 MG Tab PO SCH (20:00)
[2020-06-19] MEDS: Potassium Chloride 10 MEQ Tab.ER PO SCH ×2 (07:43→17:33)
[2020-06-19] MEDS: Aspirin 81 MG Tab.EC PO SCH (07:44)
[2020-06-19] MEDS: Lisinopril 5 MG Tab PO SCH (07:44)
[2020-06-19] MEDS: Carvedilol 3.125 MG Tab PO SCH ×2 (07:44→17:33)
[2020-06-19] MEDS: atorvaSTATin 20 MG Tab PO SCH (07:44)
[2020-06-19] MEDS: DULoxetine 30 MG Cap PO SCH (07:44)
[2020-06-19] MEDS: Furosemide 40 MG Tab PO SCH ×2 (09:42→16:19)
[2020-06-19] MEDS ORDERED: Acetaminophen 325 MG Tab PO PRN (09:48)
--- NOTE | 2020-06-19 10:37 | PCM.PN ---
- General Info Date of Service: 06/19/20 Admission Dx/Problem (Free Text): LLE Cellulitis Subjective Update: Roseline is an 85 yo female who was admitted to the hospital from the clinic yesterday for RLE cellulitis by Dr. Gonzalez. She reports she has noticed the redness worsen over the last week. She denies any fever or chills. Reports appetite has been good. Does have tender areas to her RLE. Area is warm to touch. She denies any chest pain or shortness of breath. Functional Status: Reports: Pain Controlled, Tolerating Diet, Ambulating, Urinating. Denies: New Symptoms - Review of Systems General: Reports: Weakness. Denies: Fever, Malaise Pulmonary: Reports: No Symptoms. Denies: Shortness of Breath, Cough Cardiovascular: Reports: Edema. Denies: Chest Pain Gastrointestinal: Reports: Diarrhea. Denies: Abdominal Pain, Decreased Appetite, Hematochezia, Melena, Nausea, Vomiting Genitourinary: Reports: No Symptoms Musculoskeletal: Reports: No Symptoms Skin: Reports: Other (erythema and calor to RLE from ankle to mid [place], area outlined) Neurological: Reports: No Symptoms Psychiatric: Reports: No Symptoms - Patient Data Vitals - Most Recent: Last Vital Signs Temp 100 F 06/19/20 07:34 Pulse 74 06/19/20 07:44 Resp 18 06/19/20 07:34 BP 129/69 06/19/20 07:44 Pulse Ox 91 L 06/19/20 07:34 Weight - Most Recent: 201 lb 1.6 oz Lab Results Last 24 Hours: Laboratory Results - last 24 hr 06/18/20 06/18/20 06/19/20 Range/Units 17:10 17:10 09:02 WBC 14.4 H 9.3 (5.0-10.0) 10^3/uL RBC 4.10 3.92 L (4.00-5.50) 10^6/uL Hgb 11.7 L 11.2 L (12.0-16.0) g/dL Hct 35.6 L 33.6 L (37.0-47.0) % MCV 86.8 85.7 (82.0-94.0) fL MCH 28.5 28.6 (27.0-32.0) pg MCHC 32.9 L 33.3 (33.0-38.0) g/dL RDW Coeff of Zia 18.3 H 18.3 H (11.0-15.0) % Plt Count 182 178 (150-400) 10^3/uL Neut % (Auto) 80.4 72.7 (35-85) % Lymph % (Auto) 8.5 L 11.1 (10-55) % [place] % (Auto) 9.5 14.3 (0-16) % Eos % (Auto) 1.3 1.5 (0-5) % Baso % (Auto) 0.3 0.4 (0-3) % Neut # (Auto) 11.60 H 6.72 (1.80-7.00) 10^3/uL Lymph # (Auto) 1.22 1.03 (1.00-4.80) 10^3/uL [place] # (Auto) 1.37 H 1.32 H (0.00-0.80) 10^3/uL Eos # (Auto) 0.19 0.14 (0.00-0.45) 10^3/uL Baso # (Auto) 0.05 0.04 10^3/uL Sodium 137 (136-145) mEq/L Potassium 4.2 (3.5-5.0) mEq/L Chloride 95 L (98-106) mEq/L Carbon Dioxide 33 H (21-32) mmol/L BUN 50 H D (7-18) mg/dL Creatinine 2.0 H D (0.6-1.0) mg/dL Est Cr Clr Drug Dosing 21.12 mL/min Estimated GFR (MDRD) 24 L (>=60) mL/min Glucose 140 H (75-99) mg/dL Calcium 8.8 (8.4-10.1) mg/dL C-Reactive Protein 8.8 H (0.2-0.8) mg/dL NT-Pro-B Natriuret Pep 9479 H (0-1000) pg/mL 06/19/20 06/19/20 Range/Units 09:02 09:02 WBC (5.0-10.0) 10^3/uL RBC (4.00-5.50) 10^6/uL Hgb (12.0-16.0) g/dL Hct (37.0-47.0) % MCV (82.0-94.0) fL MCH (27.0-32.0) pg MCHC (33.0-38.0) g/dL RDW Coeff of Zia (11.0-15.0) % Plt Count (150-400) 10^3/uL Neut % (Auto) (35-85) % Lymph % (Auto) (10-55) % [place] % (Auto) (0-16) % Eos % (Auto) (0-5) % Baso % (Auto) (0-3) % Neut # (Auto) (1.80-7.00) 10^3/uL Lymph # (Auto) (1.00-4.80) 10^3/uL [place] # (Auto) (0.00-0.80) 10^3/uL Eos # (Auto) (0.00-0.45) 10^3/uL Baso # (Auto) 10^3/uL Sodium 136 (136-145) mEq/L Potassium 3.8 (3.5-5.0) mEq/L Chloride 97 L (98-106) mEq/L Carbon Dioxide 29 (21-32) mmol/L BUN 50 H (7-18) mg/dL Creatinine 1.8 H (0.6-1.0) mg/dL Est Cr Clr Drug Dosing 23.47 mL/min Estimated GFR (MDRD) 27 L (>=60) mL/min Glucose 199 H D (75-99) mg/dL Calcium 8.7 (8.4-10.1) mg/dL C-Reactive Protein 9.1 H (0.2-0.8) mg/dL NT-Pro-B Natriuret Pep (0-1000) pg/mL Med Orders - Current: Current Medications Acetaminophen (Tylenol) 650 mg PO Q6H PRN PRN Reason: Pain Alogliptin Benzoate (Alogliptin) 6.25 mg PO DAILY [facility] Last Admin: 06/19/20 09:42 Dose: 6.25 mg Documented by: Aspirin (Halfprin) 81 mg PO DAILY [facility] Last Admin: 06/19/20 07:44 Dose: 81 mg Documented by: Atorvastatin Calcium (Lipitor) 20 mg PO DAILY [facility] Last Admin: 06/19/20 07:44 Dose: 20 mg Documented by: Carvedilol (Coreg) 3.125 mg PO BIDMEALS [facility] Last Admin: 06/19/20 07:44 Dose: 3.125 mg Documented by: Ceftriaxone Sodium (Rocephin) 1 gm IVPUSH Q24H [facility] Last Admin: 06/18/20 17:36 Dose: 1 gm Documented by: Duloxetine HCl (Cymbalta) 60 mg PO DAILY [facility] Last Admin: 06/19/20 07:44 Dose: 60 mg Documented by: Enoxaparin Sodium (Lovenox) 30 mg SUBCUT Q24H [facility] Last Admin: 06/18/20 17:52 Dose: 30 mg Documented by: Furosemide (Lasix) 40 mg PO BIDDIURETIC [facility] Last Admin: 06/19/20 09:42 Dose: 40 mg Documented by: Gabapentin (Neurontin) 300 mg PO Q4H PRN PRN Reason: Other Lisinopril (Prinivil) 2.5 mg PO DAILY [facility] Last Admin: 06/19/20 07:44 Dose: 2.5 mg Documented by: Magnesium Oxide (Magnesium Oxide) 500 mg PO DAILY [facility] Last Admin: 06/19/20 07:43 Dose: 500 mg Documented by: Nitroglycerin (Nitrostat) 0.4 mg SL ASDIRECTED PRN PRN Reason: Chest Pain Ondansetron HCl (Zofran Odt) 4 mg PO Q4H PRN PRN Reason: nausea, able to take PO Oxycodone/Acetaminophen (Percocet 325-5 Mg) 1 tab PO Q4H PRN PRN Reason: Pain (moderate 4-6) Potassium Chloride (Klor-Con 10) 10 meq PO BIDMEALS [facility] Last Admin: 06/19/20 07:43 Dose: 10 meq Documented by: Sodium Chloride (Saline Flush) 10 ml FLUSH ASDIRECTED PRN PRN Reason: Keep Vein Open Zolpidem Tartrate (Ambien) 5 mg PO BEDTIME PRN PRN Reason: Sleep Discontinued Medications Carvedilol (Coreg) 3.125 mg PO BID [facility] Furosemide (Lasix) 40 mg PO BIDDIURETIC [facility] - Exam General: Alert, Oriented Neck: Supple Lungs: Clear to Auscultation, Normal Respiratory Effort Cardiovascular: Regular Rate, Irregular Rhythm GI/Abdominal Exam: Normal Bowel Sounds, Soft, Non-Tender, No Distention Extremities: Normal Range of Motion, Pedal Edema (2+, R > L), Increased Warmth (right lower extremity from just below knee extending down to ankle ), Redness (from just below right knee extending down to ankle, area outlined), Other Peripheral Pulses: 1+: Dorsalis Pedis (L), Dorsalis Pedis (R) Skin: Warm, Dry Neurological: No New Focal Deficit Psy/Mental Status: Alert, Normal Affect, Normal Mood - Patient Data Lab Results Last 24 hrs: Laboratory Results - last 24 hr 06/18/20 06/18/20 06/19/20 Range/Units 17:10 17:10 09:02 WBC 14.4 H 9.3 (5.0-10.0) 10^3/uL RBC 4.10 3.92 L (4.00-5.50) 10^6/uL Hgb 11.7 L 11.2 L (12.0-16.0) g/dL Hct 35.6 L 33.6 L (37.0-47.0) % MCV 86.8 85.7 (82.0-94.0) fL MCH 28.5 28.6 (27.0-32.0) pg MCHC 32.9 L 33.3 (33.0-38.0) g/dL RDW Coeff of Zia 18.3 H 18.3 H (11.0-15.0) % Plt Count 182 178 (150-400) 10^3/uL Neut % (Auto) 80.4 72.7 (35-85) % Lymph % (Auto) 8.5 L 11.1 (10-55) % [place] % (Auto) 9.5 14.3 (0-16) % Eos % (Auto) 1.3 1.5 (0-5) % Baso % (Auto) 0.3 0.4 (0-3) % Neut # (Auto) 11.60 H 6.72 (1.80-7.00) 10^3/uL Lymph # (Auto) 1.22 1.03 (1.00-4.80) 10^3/uL [place] # (Auto) 1.37 H 1.32 H (0.00-0.80) 10^3/uL Eos # (Auto) 0.19 0.14 (0.00-0.45) 10^3/uL Baso # (Auto) 0.05 0.04 10^3/uL Sodium 137 (136-145) mEq/L Potassium 4.2 (3.5-5.0) mEq/L Chloride 95 L (98-106) mEq/L Carbon Dioxide 33 H (21-32) mmol/L BUN 50 H D (7-18) mg/dL Creatinine 2.0 H D (0.6-1.0) mg/dL Est Cr Clr Drug Dosing 21.12 mL/min Estimated GFR (MDRD) 24 L (>=60) mL/min Glucose 140 H (75-99) mg/dL Calcium 8.8 (8.4-10.1) mg/dL C-Reactive Protein 8.8 H (0.2-0.8) mg/dL NT-Pro-B Natriuret Pep 9479 H (0-1000) pg/mL 06/19/20 06/19/20 Range/Units 09:02 09:02 WBC (5.0-10.0) 10^3/uL RBC (4.00-5.50) 10^6/uL Hgb (12.0-16.0) g/dL Hct (37.0-47.0) % MCV (82.0-94.0) fL MCH (27.0-32.0) pg MCHC (33.0-38.0) g/dL RDW Coeff of Zia (11.0-15.0) % Plt Count (150-400) 10^3/uL Neut % (Auto) (35-85) % Lymph % (Auto) (10-55) % [place] % (Auto) (0-16) % Eos % (Auto) (0-5) % Baso % (Auto) (0-3) % Neut # (Auto) (1.80-7.00) 10^3/uL Lymph # (Auto) (1.00-4.80) 10^3/uL [place] # (Auto) (0.00-0.80) 10^3/uL Eos # (Auto) (0.00-0.45) 10^3/uL Baso # (Auto) 10^3/uL Sodium 136 (136-145) mEq/L Potassium 3.8 (3.5-5.0) mEq/L Chloride 97 L (98-106) mEq/L Carbon Dioxide 29 (21-32) mmol/L BUN 50 H (7-18) mg/dL Creatinine 1.8 H (0.6-1.0) mg/dL Est Cr Clr Drug Dosing 23.47 mL/min Estimated GFR (MDRD) 27 L (>=60) mL/min Glucose 199 H D (75-99) mg/dL Calcium 8.7 (8.4-10.1) mg/dL C-Reactive Protein 9.1 H (0.2-0.8) mg/dL NT-Pro-B Natriuret Pep (0-1000) pg/mL Result Diagrams: 06/19/20 09:02 06/19/20 09:02 Sepsis Event Note - Evaluation Sepsis Screening Result: No Definite Risk - Focused Exam Vital Signs: Vital Signs Temp Pulse Pulse Resp BP BP Pulse Ox 06/19/20 07:44 74 129/69 06/19/20 07:34 100 F 74 18 129/69 91 L 06/19/20 04:00 98.3 F 73 18 116/54 L 90 L 06/19/20 00:00 97.2 F 66 20 118/42 L 91 L - Problem List & Annotations (1) Cellulitis of right lower extremity SNOMED Code(s): 581135997 Code(s): L03.115 - CELLULITIS OF RIGHT LOWER LIMB Status: Acute Current Visit: Yes (2) Atrial fibrillation SNOMED Code(s): 37986961 Code(s): I48.91 - UNSPECIFIED ATRIAL FIBRILLATION Status: Acute Current Visit: Yes Qualifiers: Atrial fibrillation type: paroxysmal Qualified Code(s): I48.0 - Paroxysmal atrial fibrillation (3) Congestive heart failure SNOMED Code(s): 13427376 Code(s): I50.9 - HEART FAILURE, UNSPECIFIED Status: Acute Current Visit: Yes Qualifiers: Heart failure type: systolic Heart failure chronicity: chronic Qualified Code(s): I50.22 - Chronic systolic (congestive) heart failure (4) Type 2 diabetes mellitus SNOMED Code(s): 93332807 Code(s): E11.9 - TYPE 2 DIABETES MELLITUS WITHOUT COMPLICATIONS Status: Chronic Current Visit: Yes Qualifiers: Diabetes mellitus half-way insulin use: without half-way use Diabetes mellitus complication status: without complication Qualified Code(s): E11.9 - Type 2 diabetes mellitus without complications - Problem List Review Problem List Initiated/Reviewed/Updated: Yes - My Orders Last 24 Hours: My Active Orders 06/19/20 09:48 Acetaminophen [TylenoL] 650 mg PO Q6H PRN 06/19/20 09:51 Consult to Physical Therapy [PT Evaluation and Treatment] [CONS] Routine 06/20/20 07:00 BASIC METABOLIC PANEL,BMP [CHEM] DAILY C-REACTIVE PROTEIN [REF] DAILY CBC WITH AUTO DIFF [HEME] DAILY 06/21/20 07:00 BASIC METABOLIC PANEL,BMP [CHEM] DAILY C-REACTIVE PROTEIN [REF] DAILY CBC WITH AUTO DIFF [HEME] DAILY - Assessment Assessment:: Cellulitis Right Lower Extremity Atrial Fibrillation Congestive Heart Failure Type 2 DM - Plan Plan:: Right lower extremity continues to have erythema and increased warmth. Duplex US of area negative for DVT. No worsening of redness. WBC improved from 14.4 to 9.3. Creatinine 2.0 to 1.8. Will continue with IV Rocephin. ProBNP remains elevated. Is scheduled to see cardiology for this. Recent echo shows EF 45%. Will continue with lasix. Will consult PT due to unsteady gait. Patient has had many falls recently. Continue with IV antibiotics and daily labs.
[2020-06-19] MEDS: cefTRIAXone 1 GM Vial IVPUSH SCH (16:20)
[2020-06-19] MEDS ORDERED: Furosemide 80 MG Tab PO SCH (17:30)
[2020-06-19] MEDS: Enoxaparin 30 MG/0.3 ML Syringe SUBCUT SCH (17:33)
[2020-06-20] MEDS: Gabapentin 300 MG Cap PO PRN ×2 (01:36→07:40)
[2020-06-20] MEDS: Potassium Chloride 10 MEQ Tab.ER PO SCH ×2 (07:32→16:34)
[2020-06-20] MEDS: atorvaSTATin 20 MG Tab PO SCH (07:32)
[2020-06-20] MEDS: DULoxetine 30 MG Cap PO SCH (07:33)
[2020-06-20] MEDS: Aspirin 81 MG Tab.EC PO SCH (07:33)
[2020-06-20] MEDS: Lisinopril 5 MG Tab PO SCH (07:33)
[2020-06-20] MEDS: Furosemide 40 MG Tab PO SCH ×2 (07:34→15:22)
[2020-06-20] MEDS: Carvedilol 3.125 MG Tab PO SCH ×2 (07:34→16:35)
--- NOTE | 2020-06-20 09:15 | PCM.PN ---
- General Info Date of Service: 06/20/20 Admission Dx/Problem (Free Text): LLE Cellulitis Subjective Update: Roseline is an 85 yo female who was admitted to the hospital from the clinic yesterday for RLE cellulitis by Dr. Gonzalez. She reports she has noticed the redness worsen over the last week. She denies any fever or chills. Reports appetite has been good. Does have tender areas to her RLE. Area is warm to touch. She denies any chest pain or shortness of breath. 06-20-2020 Patient admits to less discomfort in her right leg. Does feel hot to the posterior knee region. States swelling is much improved. Denies pain with ambulation but admits that her "legs were really burning last night" and "didn't have the right dose of Neurontin". Appetite has been good. Denies shortness of breath. Functional Status: Reports: Tolerating Diet, Ambulating, Urinating. Denies: Pain Controlled - Review of Systems General: Reports: Weakness, Malaise. Denies: Fever, Fatigue HEENT: Reports: No Symptoms Pulmonary: Denies: Shortness of Breath, Cough Cardiovascular: Reports: Edema. Denies: Chest Pain, Lightheadedness Gastrointestinal: Denies: Abdominal Pain, Nausea, Vomiting Genitourinary: Reports: No Symptoms Musculoskeletal: Reports: Leg Pain Skin: Reports: Other (redness and warmth) Neurological: Reports: Weakness - Patient Data Vitals - Most Recent: Last Vital Signs Temp 98.6 F 06/20/20 07:30 Pulse 73 06/20/20 07:34 Resp 18 06/20/20 07:30 BP 169/85 H 06/20/20 07:34 Pulse Ox 93 L 06/20/20 07:30 Weight - Most Recent: 201 lb 1.6 oz Lab Results Last 24 Hours: Laboratory Results - last 24 hr 06/19/20 06/19/20 06/20/20 Range/Units 09:02 09:02 07:00 WBC 7.7 (5.0-10.0) 10^3/uL RBC 3.89 L (4.00-5.50) 10^6/uL Hgb 11.2 L (12.0-16.0) g/dL Hct 33.7 L (37.0-47.0) % MCV 86.6 (82.0-94.0) fL MCH 28.8 (27.0-32.0) pg MCHC 33.2 (33.0-38.0) g/dL RDW Coeff of Zia 18.4 H (11.0-15.0) % Plt Count 184 (150-400) 10^3/uL Neut % (Auto) 69.3 (35-85) % Lymph % (Auto) 13.1 (10-55) % [place] % (Auto) 14.1 (0-16) % Eos % (Auto) 2.9 (0-5) % Baso % (Auto) 0.6 (0-3) % Neut # (Auto) 5.34 (1.80-7.00) 10^3/uL Lymph # (Auto) 1.01 (1.00-4.80) 10^3/uL [place] # (Auto) 1.09 H (0.00-0.80) 10^3/uL Eos # (Auto) 0.22 (0.00-0.45) 10^3/uL Baso # (Auto) 0.05 10^3/uL Sodium 136 (136-145) mEq/L Potassium 3.8 (3.5-5.0) mEq/L Chloride 97 L (98-106) mEq/L Carbon Dioxide 29 (21-32) mmol/L BUN 50 H (7-18) mg/dL Creatinine 1.8 H (0.6-1.0) mg/dL Est Cr Clr Drug Dosing 23.47 mL/min Estimated GFR (MDRD) 27 L (>=60) mL/min Glucose 199 H D (75-99) mg/dL Calcium 8.7 (8.4-10.1) mg/dL C-Reactive Protein 9.1 H (0.2-0.8) mg/dL 06/20/20 Range/Units 07:00 WBC (5.0-10.0) 10^3/uL RBC (4.00-5.50) 10^6/uL Hgb (12.0-16.0) g/dL Hct (37.0-47.0) % MCV (82.0-94.0) fL MCH (27.0-32.0) pg MCHC (33.0-38.0) g/dL RDW Coeff of Zia (11.0-15.0) % Plt Count (150-400) 10^3/uL Neut % (Auto) (35-85) % Lymph % (Auto) (10-55) % [place] % (Auto) (0-16) % Eos % (Auto) (0-5) % Baso % (Auto) (0-3) % Neut # (Auto) (1.80-7.00) 10^3/uL Lymph # (Auto) (1.00-4.80) 10^3/uL [place] # (Auto) (0.00-0.80) 10^3/uL Eos # (Auto) (0.00-0.45) 10^3/uL Baso # (Auto) 10^3/uL Sodium 141 (136-145) mEq/L Potassium 3.7 (3.5-5.0) mEq/L Chloride 101 (98-106) mEq/L Carbon Dioxide 30 (21-32) mmol/L BUN 45 H (7-18) mg/dL Creatinine 1.5 H (0.6-1.0) mg/dL Est Cr Clr Drug Dosing 28.16 mL/min Estimated GFR (MDRD) 33 L (>=60) mL/min Glucose 160 H (75-99) mg/dL Calcium 8.5 (8.4-10.1) mg/dL C-Reactive Protein (0.2-0.8) mg/dL Med Orders - Current: Current Medications Acetaminophen (Tylenol) 650 mg PO Q6H PRN PRN Reason: Pain Alogliptin Benzoate (Alogliptin) 6.25 mg PO DAILY [facility] Last Admin: 06/20/20 07:32 Dose: 6.25 mg Documented by: Aspirin (Halfprin) 81 mg PO DAILY [facility] Last Admin: 06/20/20 07:33 Dose: 81 mg Documented by: Atorvastatin Calcium (Lipitor) 20 mg PO DAILY [facility] Last Admin: 06/20/20 07:32 Dose: 20 mg Documented by: Carvedilol (Coreg) 3.125 mg PO BIDMEALS [facility] Last Admin: 06/20/20 07:34 Dose: 3.125 mg Documented by: Ceftriaxone Sodium (Rocephin) 1 gm IVPUSH Q24H [facility] Last Admin: 06/19/20 16:20 Dose: 1 gm Documented by: Duloxetine HCl (Cymbalta) 60 mg PO DAILY [facility] Last Admin: 06/20/20 07:33 Dose: 60 mg Documented by: Enoxaparin Sodium (Lovenox) 30 mg SUBCUT Q24H [facility] Last Admin: 06/19/20 17:33 Dose: 30 mg Documented by: Furosemide (Lasix) 40 mg PO BIDDIURETIC [facility] Last Admin: 06/20/20 07:34 Dose: 40 mg Documented by: Gabapentin (Neurontin) 300 mg PO Q4H PRN PRN Reason: Other Last Admin: 06/20/20 07:40 Dose: 300 mg Documented by: Lisinopril (Prinivil) 2.5 mg PO DAILY [facility] Last Admin: 06/20/20 07:33 Dose: 2.5 mg Documented by: Magnesium Oxide (Magnesium Oxide) 500 mg PO DAILY [facility] Last Admin: 06/20/20 07:33 Dose: 500 mg Documented by: Nitroglycerin (Nitrostat) 0.4 mg SL ASDIRECTED PRN PRN Reason: Chest Pain Ondansetron HCl (Zofran Odt) 4 mg PO Q4H PRN PRN Reason: nausea, able to take PO Oxycodone/Acetaminophen (Percocet 325-5 Mg) 1 tab PO Q4H PRN PRN Reason: Pain (moderate 4-6) Potassium Chloride (Klor-Con 10) 10 meq PO BIDMEALS [facility] Last Admin: 06/20/20 07:32 Dose: 10 meq Documented by: Sodium Chloride (Saline Flush) 10 ml FLUSH ASDIRECTED PRN PRN Reason: Keep Vein Open Zolpidem Tartrate (Ambien) 5 mg PO BEDTIME PRN PRN Reason: Sleep Discontinued Medications Carvedilol (Coreg) 3.125 mg PO BID [facility] Furosemide (Lasix) 40 mg PO BIDDIURETIC [facility] - Exam General: Alert, Oriented Neck: Supple Lungs: Clear to Auscultation, Normal Respiratory Effort Cardiovascular: Regular Rate, Regular Rhythm GI/Abdominal Exam: Normal Bowel Sounds, Soft, Non-Tender Extremities: Other (RLE does continue to have redness and warmth but improved in regards to skin markings. Patient states edema much improved. Is tender to posterior right knee.) Wound/Incisions: Erythema Improving Neurological: No New Focal Deficit - Patient Data Lab Results Last 24 hrs: Laboratory Results - last 24 hr 06/19/20 06/19/20 06/20/20 Range/Units 09:02 09:02 07:00 WBC 7.7 (5.0-10.0) 10^3/uL RBC 3.89 L (4.00-5.50) 10^6/uL Hgb 11.2 L (12.0-16.0) g/dL Hct 33.7 L (37.0-47.0) % MCV 86.6 (82.0-94.0) fL MCH 28.8 (27.0-32.0) pg MCHC 33.2 (33.0-38.0) g/dL RDW Coeff of Zia 18.4 H (11.0-15.0) % Plt Count 184 (150-400) 10^3/uL Neut % (Auto) 69.3 (35-85) % Lymph % (Auto) 13.1 (10-55) % [place] % (Auto) 14.1 (0-16) % Eos % (Auto) 2.9 (0-5) % Baso % (Auto) 0.6 (0-3) % Neut # (Auto) 5.34 (1.80-7.00) 10^3/uL Lymph # (Auto) 1.01 (1.00-4.80) 10^3/uL [place] # (Auto) 1.09 H (0.00-0.80) 10^3/uL Eos # (Auto) 0.22 (0.00-0.45) 10^3/uL Baso # (Auto) 0.05 10^3/uL Sodium 136 (136-145) mEq/L Potassium 3.8 (3.5-5.0) mEq/L Chloride 97 L (98-106) mEq/L Carbon Dioxide 29 (21-32) mmol/L BUN 50 H (7-18) mg/dL Creatinine 1.8 H (0.6-1.0) mg/dL Est Cr Clr Drug Dosing 23.47 mL/min Estimated GFR (MDRD) 27 L (>=60) mL/min Glucose 199 H D (75-99) mg/dL Calcium 8.7 (8.4-10.1) mg/dL C-Reactive Protein 9.1 H (0.2-0.8) mg/dL 06/20/20 Range/Units 07:00 WBC (5.0-10.0) 10^3/uL RBC (4.00-5.50) 10^6/uL Hgb (12.0-16.0) g/dL Hct (37.0-47.0) % MCV (82.0-94.0) fL MCH (27.0-32.0) pg MCHC (33.0-38.0) g/dL RDW Coeff of Zia (11.0-15.0) % Plt Count (150-400) 10^3/uL Neut % (Auto) (35-85) % Lymph % (Auto) (10-55) % [place] % (Auto) (0-16) % Eos % (Auto) (0-5) % Baso % (Auto) (0-3) % Neut # (Auto) (1.80-7.00) 10^3/uL Lymph # (Auto) (1.00-4.80) 10^3/uL [place] # (Auto) (0.00-0.80) 10^3/uL Eos # (Auto) (0.00-0.45) 10^3/uL Baso # (Auto) 10^3/uL Sodium 141 (136-145) mEq/L Potassium 3.7 (3.5-5.0) mEq/L Chloride 101 (98-106) mEq/L Carbon Dioxide 30 (21-32) mmol/L BUN 45 H (7-18) mg/dL Creatinine 1.5 H (0.6-1.0) mg/dL Est Cr Clr Drug Dosing 28.16 mL/min Estimated GFR (MDRD) 33 L (>=60) mL/min Glucose 160 H (75-99) mg/dL Calcium 8.5 (8.4-10.1) mg/dL C-Reactive Protein (0.2-0.8) mg/dL Result Diagrams: 06/20/20 07:00 06/20/20 07:00 Sepsis Event Note - Evaluation Sepsis Screening Result: No Definite Risk - Focused Exam Vital Signs: Vital Signs Temp Pulse Pulse Resp BP BP Pulse Ox 06/20/20 07:34 73 169/85 H 06/20/20 07:33 169/85 H 06/20/20 07:30 98.6 F 73 18 169/85 H 93 L 06/20/20 04:00 97.8 F 62 18 138/68 95 06/20/20 00:00 97.8 F 70 18 146/73 H 94 L - Problem List & Annotations (1) Cellulitis of right lower extremity SNOMED Code(s): 338713850 Code(s): L03.115 - CELLULITIS OF RIGHT LOWER LIMB Status: Acute Priority: High Current Visit: Yes (2) Congestive heart failure SNOMED Code(s): 17136638 Code(s): I50.9 - HEART FAILURE, UNSPECIFIED Status: Acute Priority: High Current Visit: Yes Qualifiers: Heart failure type: systolic Heart failure chronicity: chronic Qualified Code(s): I50.22 - Chronic systolic (congestive) heart failure - Problem List Review Problem List Initiated/Reviewed/Updated: Yes - Assessment Assessment:: Cellulitis Right Lower Extremity Atrial Fibrillation Congestive Heart Failure Type 2 DM - Plan Plan:: Right lower extremity continues to have erythema and increased warmth. Duplex US of area negative for DVT. No worsening of redness. WBC improved from 14.4 to 9.3. Creatinine 2.0 to 1.8. Will continue with IV Rocephin. ProBNP remains elevated. Is scheduled to see cardiology for this. Recent echo shows EF 45%. Will continue with lasix. Will consult PT due to unsteady gait. Patient has had many falls recently. Continue with IV antibiotics and daily labs. 06-20-2020 Patient edema and redness improving. Labs are stable, improved. Continue PT for weakness/balance concern. IV antibiotics. Will switch Gabapentin to scheduled doses versus PRN. Blood pressure is mildly elevated, will continue to monitor, may need to increase Lisinopril as creatinine has improved.
[2020-06-20] MEDS: Gabapentin 300 MG Cap PO SCH ×2 (11:58→19:39)
[2020-06-20] MEDS: cefTRIAXone 1 GM Vial IVPUSH SCH (16:36)
[2020-06-20] MEDS: Enoxaparin 30 MG/0.3 ML Syringe SUBCUT SCH (18:01)
[2020-06-21] MEDS: DULoxetine 30 MG Cap PO SCH (07:54)
[2020-06-21] MEDS: Potassium Chloride 10 MEQ Tab.ER PO SCH ×2 (07:55→16:37)
[2020-06-21] MEDS: Aspirin 81 MG Tab.EC PO SCH (07:55)
[2020-06-21] MEDS: Gabapentin 300 MG Cap PO SCH ×3 (07:55→19:26)
[2020-06-21] MEDS: Furosemide 40 MG Tab PO SCH ×2 (07:56→16:37)
[2020-06-21] MEDS: atorvaSTATin 20 MG Tab PO SCH (07:59)
[2020-06-21] MEDS: Carvedilol 3.125 MG Tab PO SCH ×2 (08:00→16:37)
[2020-06-21] MEDS: Lisinopril 5 MG Tab PO SCH (08:00)
--- NOTE | 2020-06-21 13:12 | PCM.PN ---
- General Info Date of Service: 06/21/20 Admission Dx/Problem (Free Text): LLE Cellulitis Subjective Update: Roseline reports she is doing well this morning. Leg has improved significantly. Reports some tenderness behind knee but otherwise pain has resolved. She has continued to be afebrile. She denies any other complaints. Functional Status: Reports: Pain Controlled, Tolerating Diet, Ambulating, Urinating - Review of Systems General: Reports: No Symptoms, Fever. Denies: Weakness, Fatigue HEENT: Reports: No Symptoms Pulmonary: Reports: No Symptoms Cardiovascular: Reports: Edema. Denies: Chest Pain, Dyspnea on Exertion Gastrointestinal: Reports: Diarrhea. Denies: Abdominal Pain, Constipation, Decreased Appetite, Hematochezia, Melena, Nausea, Vomiting Genitourinary: Reports: No Symptoms Musculoskeletal: Reports: No Symptoms Skin: Reports: No Symptoms Neurological: Reports: No Symptoms Psychiatric: Reports: No Symptoms - Patient Data Vitals - Most Recent: Last Vital Signs Temp 98.0 F 06/21/20 12:00 Pulse 82 06/21/20 12:00 Resp 18 06/21/20 12:00 BP 160/69 H 06/21/20 12:00 Pulse Ox 96 06/21/20 12:00 Weight - Most Recent: 201 lb 1.6 oz Lab Results Last 24 Hours: Laboratory Results - last 24 hr 06/21/20 06/21/20 Range/Units 07:15 07:15 WBC 8.0 (5.0-10.0) 10^3/uL RBC 3.85 L (4.00-5.50) 10^6/uL Hgb 11.0 L (12.0-16.0) g/dL Hct 33.7 L (37.0-47.0) % MCV 87.5 (82.0-94.0) fL MCH 28.6 (27.0-32.0) pg MCHC 32.6 L (33.0-38.0) g/dL RDW Coeff of Zia 18.7 H (11.0-15.0) % Plt Count 188 (150-400) 10^3/uL Neut % (Auto) 67.6 (35-85) % Lymph % (Auto) 13.2 (10-55) % [place] % (Auto) 14.6 (0-16) % Eos % (Auto) 3.8 (0-5) % Baso % (Auto) 0.8 (0-3) % Neut # (Auto) 5.38 (1.80-7.00) 10^3/uL Lymph # (Auto) 1.05 (1.00-4.80) 10^3/uL [place] # (Auto) 1.16 H (0.00-0.80) 10^3/uL Eos # (Auto) 0.30 (0.00-0.45) 10^3/uL Baso # (Auto) 0.06 10^3/uL Sodium 141 (136-145) mEq/L Potassium 3.5 (3.5-5.0) mEq/L Chloride 102 (98-106) mEq/L Carbon Dioxide 30 (21-32) mmol/L BUN 38 H (7-18) mg/dL Creatinine 1.1 H (0.6-1.0) mg/dL Est Cr Clr Drug Dosing 38.40 mL/min Estimated GFR (MDRD) 47 L (>=60) mL/min Glucose 162 H (75-99) mg/dL Calcium 8.6 (8.4-10.1) mg/dL C-Reactive Protein 4.2 H (0.2-0.8) mg/dL Med Orders - Current: Current Medications Acetaminophen (Tylenol) 650 mg PO Q6H PRN PRN Reason: Pain Alogliptin Benzoate (Alogliptin) 6.25 mg PO DAILY [facility] Last Admin: 06/21/20 07:55 Dose: 6.25 mg Documented by: Aspirin (Halfprin) 81 mg PO DAILY [facility] Last Admin: 06/21/20 07:55 Dose: 81 mg Documented by: Atorvastatin Calcium (Lipitor) 20 mg PO DAILY [facility] Last Admin: 06/21/20 07:59 Dose: 20 mg Documented by: Carvedilol (Coreg) 3.125 mg PO BIDMEALS [facility] Last Admin: 06/21/20 08:00 Dose: 3.125 mg Documented by: Ceftriaxone Sodium (Rocephin) 1 gm IVPUSH Q24H [facility] Last Admin: 06/20/20 16:36 Dose: 1 gm Documented by: Duloxetine HCl (Cymbalta) 60 mg PO DAILY [facility] Last Admin: 06/21/20 07:54 Dose: 60 mg Documented by: Enoxaparin Sodium (Lovenox) 30 mg SUBCUT Q24H [facility] Last Admin: 06/20/20 18:01 Dose: 30 mg Documented by: Furosemide (Lasix) 40 mg PO BIDDIURETIC [facility] Last Admin: 06/21/20 07:56 Dose: 40 mg Documented by: Gabapentin (Neurontin) 300 mg PO BID@0800,1200 [facility] Last Admin: 06/21/20 11:40 Dose: 300 mg Documented by: Gabapentin (Neurontin) 600 mg PO BEDTIME [facility] Last Admin: 06/20/20 19:39 Dose: 600 mg Documented by: Lisinopril (Prinivil) 2.5 mg PO DAILY [facility] Last Admin: 06/21/20 08:00 Dose: 2.5 mg Documented by: Magnesium Oxide (Magnesium Oxide) 500 mg PO DAILY [facility] Last Admin: 06/21/20 07:56 Dose: 500 mg Documented by: Nitroglycerin (Nitrostat) 0.4 mg SL ASDIRECTED PRN PRN Reason: Chest Pain Ondansetron HCl (Zofran Odt) 4 mg PO Q4H PRN PRN Reason: nausea, able to take PO Oxycodone/Acetaminophen (Percocet 325-5 Mg) 1 tab PO Q4H PRN PRN Reason: Pain (moderate 4-6) Potassium Chloride (Klor-Con 10) 10 meq PO BIDMEALS [facility] Last Admin: 06/21/20 07:55 Dose: 10 meq Documented by: Sodium Chloride (Saline Flush) 10 ml FLUSH ASDIRECTED PRN PRN Reason: Keep Vein Open Zolpidem Tartrate (Ambien) 5 mg PO BEDTIME PRN PRN Reason: Sleep Discontinued Medications Carvedilol (Coreg) 3.125 mg PO BID [facility] Furosemide (Lasix) 40 mg PO BIDDIURETIC [facility] Gabapentin (Neurontin) 300 mg PO Q4H PRN PRN Reason: Other Last Admin: 06/20/20 07:40 Dose: 300 mg Documented by: - Exam Quality Assessment: DVT Prophylaxis General: Alert, Oriented, No Acute Distress Neck: Supple Lungs: Clear to Auscultation, Normal Respiratory Effort Cardiovascular: Regular Rate, Irregular Rhythm GI/Abdominal Exam: Normal Bowel Sounds, Soft, Non-Tender, No Organomegaly, No Distention, No Abnormal Bruit, No Mass Back Exam: Normal Inspection, Full Range of Motion Extremities: Normal Range of Motion, Non-Tender, Normal Capillary Refill, Pedal Edema, Redness (much improvement noted to RLE). No: Increased Warmth Peripheral Pulses: 2+: Dorsalis Pedis (L), Dorsalis Pedis (R) Wound/Incisions: No Drainage, Erythema Improving Neurological: No New Focal Deficit Psy/Mental Status: Alert, Normal Affect, Normal Mood - Patient Data Lab Results Last 24 hrs: Laboratory Results - last 24 hr 06/21/20 06/21/20 Range/Units 07:15 07:15 WBC 8.0 (5.0-10.0) 10^3/uL RBC 3.85 L (4.00-5.50) 10^6/uL Hgb 11.0 L (12.0-16.0) g/dL Hct 33.7 L (37.0-47.0) % MCV 87.5 (82.0-94.0) fL MCH 28.6 (27.0-32.0) pg MCHC 32.6 L (33.0-38.0) g/dL RDW Coeff of Zia 18.7 H (11.0-15.0) % Plt Count 188 (150-400) 10^3/uL Neut % (Auto) 67.6 (35-85) % Lymph % (Auto) 13.2 (10-55) % [place] % (Auto) 14.6 (0-16) % Eos % (Auto) 3.8 (0-5) % Baso % (Auto) 0.8 (0-3) % Neut # (Auto) 5.38 (1.80-7.00) 10^3/uL Lymph # (Auto) 1.05 (1.00-4.80) 10^3/uL [place] # (Auto) 1.16 H (0.00-0.80) 10^3/uL Eos # (Auto) 0.30 (0.00-0.45) 10^3/uL Baso # (Auto) 0.06 10^3/uL Sodium 141 (136-145) mEq/L Potassium 3.5 (3.5-5.0) mEq/L Chloride 102 (98-106) mEq/L Carbon Dioxide 30 (21-32) mmol/L BUN 38 H (7-18) mg/dL Creatinine 1.1 H (0.6-1.0) mg/dL Est Cr Clr Drug Dosing 38.40 mL/min Estimated GFR (MDRD) 47 L (>=60) mL/min Glucose 162 H (75-99) mg/dL Calcium 8.6 (8.4-10.1) mg/dL C-Reactive Protein 4.2 H (0.2-0.8) mg/dL Result Diagrams: 06/21/20 07:15 06/21/20 07:15 Sepsis Event Note - Evaluation Sepsis Screening Result: No Definite Risk - Focused Exam Vital Signs: Vital Signs Temp Pulse Pulse Resp BP BP Pulse Ox 06/21/20 12:00 98.0 F 82 18 160/69 H 96 06/21/20 08:00 97.1 F 85 85 18 152/82 H 152/82 H 95 06/21/20 04:00 97.5 F 72 18 144/72 H 92 L - Problem List & Annotations (1) Cellulitis of right lower extremity SNOMED Code(s): 780656615 Code(s): L03.115 - CELLULITIS OF RIGHT LOWER LIMB Status: Acute Priority: High Current Visit: Yes (2) Atrial fibrillation SNOMED Code(s): 81412272 Code(s): I48.91 - UNSPECIFIED ATRIAL FIBRILLATION Status: Acute Current Visit: Yes Qualifiers: Atrial fibrillation type: paroxysmal Qualified Code(s): I48.0 - Paroxysmal atrial fibrillation (3) Congestive heart failure SNOMED Code(s): 38985183 Code(s): I50.9 - HEART FAILURE, UNSPECIFIED Status: Acute Priority: High Current Visit: Yes Qualifiers: Heart failure type: systolic Heart failure chronicity: chronic Qualified Code(s): I50.22 - Chronic systolic (congestive) heart failure (4) Type 2 diabetes mellitus SNOMED Code(s): 04347387 Code(s): E11.9 - TYPE 2 DIABETES MELLITUS WITHOUT COMPLICATIONS Status: Chronic Current Visit: Yes Qualifiers: Diabetes mellitus roasterman insulin use: without roasterman use Diabetes m ellitus complication status: without complication Qualified Code(s): E11.9 - Type 2 diabetes mellitus without complications - Problem List Review Problem List Initiated/Reviewed/Updated: Yes - Assessment Assessment:: Cellulitis Right Lower Extremity Atrial Fibrillation Congestive Heart Failure Type 2 DM - Plan Plan:: Right lower extremity continues to have erythema and increased warmth. Duplex US of area negative for DVT. No worsening of redness. WBC improved from 14.4 to 9.3. Creatinine 2.0 to 1.8. Will continue with IV Rocephin. ProBNP remains elevated. Is scheduled to see cardiology for this. Recent echo shows EF 45%. Will continue with lasix. Will consult PT due to unsteady gait. Patient has had many falls recently. Continue with IV antibiotics and daily labs. 06-20-2020 Patient edema and redness improving. Labs are stable, improved. Continue PT for weakness/balance concern. IV antibiotics. Will switch Gabapentin to scheduled doses versus PRN. Blood pressure is mildly elevated, will continue to monitor, may need to increase Lisinopril as creatinine has improved. 06-21-2020 Edema and redness much improved. Labs all stable. VSS. Opt to keep patient one additional day for IV antibiotics and continued PT for balance/weakness. Anticipate discharge home tomorrow on oral antibiotics.
[2020-06-21] MEDS: cefTRIAXone 1 GM Vial IVPUSH SCH (16:37)
[2020-06-21] MEDS: Enoxaparin 30 MG/0.3 ML Syringe SUBCUT SCH (17:35)
[2020-06-22] MEDS: Carvedilol 3.125 MG Tab PO SCH (07:32)
[2020-06-22] MEDS: DULoxetine 30 MG Cap PO SCH (07:33)
[2020-06-22] MEDS: Potassium Chloride 10 MEQ Tab.ER PO SCH (07:33)
[2020-06-22] MEDS: atorvaSTATin 20 MG Tab PO SCH (07:33)
[2020-06-22] MEDS: Aspirin 81 MG Tab.EC PO SCH (07:33)
[2020-06-22] MEDS: Furosemide 40 MG Tab PO SCH (07:34)
[2020-06-22] MEDS: Lisinopril 5 MG Tab PO SCH (07:34)
[2020-06-22] MEDS: Gabapentin 300 MG Cap PO SCH (07:34)
[2020-06-22 07:37] VITALS: BP 153/90; PULSE 75
--- NOTE | 2020-06-22 08:49 | PCM.DCSUM1 ---
Discharge Summary - Hospital Course Free Text/Narrative:: Roseline is an 85 yo female who was admitted from the clinic to hospital on 06/18/2020 for RLE cellulitis. She was admitted and started on Rocephin. Throughout hospital stay, redness, warmth and tenderness improved greatly. She did have US RLE which was negative for DVT. Lab work improved throughout stay. WBC was 14.4 on admit and improved to 8 on discharge. CRP improved from 8.8 down to 4.2. Creatinine improved from 2.0 to 1.1. On day of discharge patient had very minimal redness remaining and no warmth or tenderness. She will be discharged home on 5 additional days of Ceftin, for total of 10 days of antibiotic therapy. She is advised to follow up with Dr. Gonzalez in 1 week for recheck, sooner if redness worsens. Patient discharged from facility in satisfactory condition. - Discharge Data Discharge Date: 06/22/20 Discharge Disposition: Home, Self-Care 01 Condition: Good - Referral to Home Health Primary Care Physician: Ernie Gonzalez MD - Discharge Diagnosis/Problem(s) (1) Cellulitis of right lower extremity SNOMED Code(s): 227597053 ICD Code: L03.115 - CELLULITIS OF RIGHT LOWER LIMB Status: Acute Priority: High (2) Atrial fibrillation SNOMED Code(s): 05648536 ICD Code: I48.91 - UNSPECIFIED ATRIAL FIBRILLATION Status: Acute Qualifiers: Atrial fibrillation type: paroxysmal Qualified Code(s): I48.0 - Paroxysmal atrial fibrillation (3) Congestive heart failure SNOMED Code(s): 48009887 ICD Code: I50.9 - HEART FAILURE, UNSPECIFIED Status: Acute Priority: High Qualifiers: Heart failure type: systolic Heart failure chronicity: chronic Qualified Code(s): I50.22 - Chronic systolic (congestive) heart failure (4) Type 2 diabetes mellitus SNOMED Code(s): 87697805 ICD Code: E11.9 - TYPE 2 DIABETES MELLITUS WITHOUT COMPLICATIONS Status: Chronic Qualifiers: Diabetes mellitus intermediate insulin use: without intermediate use Diabetes mellitus complication status: without complication Qualified Code(s): E11.9 - Type 2 diabetes mellitus without complications - Patient Summary/Data Consults: Consultations 06/19/20 09:51 Consult to Physical Therapy [PT Evaluation and Treatment] [CONS] Routine - Patient Instructions Diet: Heart Healthy Diet, Usual Diet as Tolerated Activity: As Tolerated, Elevate Extremity Notify Provider of: Fever, Increased Pain, Swelling and Redness, Drainage - Discharge Plan *PRESCRIPTION DRUG MONITORING PROGRAM REVIEWED*: Not Applicable *COPY OF PRESCRIPTION DRUG MONITORING REPORT IN PATIENT KARLY: Not Applicable Prescriptions/Med Rec: Cefuroxime Axetil [Ceftin] 500 mg PO BID #10 tablet Gabapentin [Neurontin] 600 mg PO BEDTIME 30 Days #60 cap Gabapentin [Neurontin] 300 mg PO BID@0800,1200 30 Days #60 cap Home Medications: Home Meds Aspirin [Halfprin] 81 mg PO DAILY 07/21/13 [History] Calcium Carbonate/Vitamin D3 [Calcium 600 + Vit D Tablet] 1 each PO DAILY 07/21/13 [History] Cholecalciferol (Vitamin D3) [Vitamin D3] 2,000 unit PO DAILY 07/21/13 [History] DULoxetine [Cymbalta] 60 mg PO DAILY 07/21/13 [History] Furosemide 40 mg PO BID 07/21/13 [History] Magnesium 500 mg PO DAILY 07/21/13 [History] Quinapril HCl 5 mg PO DAILY 07/21/13 [History] SitaGLIPtin [Januvia] 100 mg PO DAILY 07/21/13 [History] Vitamin B Complex [B Complex] 1 each PO DAILY 07/21/13 [History] atorvaSTATin Calcium [Atorvastatin Calcium] 20 mg PO DAILY 07/21/13 [History] carvediloL [Carvedilol] 3.125 mg PO BID 07/21/13 [History] Multivitamin [Multivitamins] 1 cap PO DAILY 03/09/18 [History] Nitroglycerin [Nitrostat] 0.4 mg SL ASDIRECTED PRN 03/09/18 [History] Potassium Chloride [Micro-K] 10 meq PO BID 03/09/18 [History] metOLazone [Metolazone] 2.5 mg PO DAILY PRN 03/09/18 [History] Cefuroxime Axetil [Ceftin] 500 mg PO BID #10 tablet 06/22/20 [Rx] Gabapentin [Neurontin] 300 mg PO BID@0800,1200 30 Days #60 cap 06/22/20 [Rx] Gabapentin [Neurontin] 600 mg PO BEDTIME 30 Days #60 cap 06/22/20 [Rx] Patient Handouts: Cellulitis, Adult Referrals: Ernie Gonzalez MD [Primary Care Provider] - - Discharge Summary/Plan Comment DC Time >30 min.: No - General Info Date of Service: 06/22/20 Admission Dx/Problem (Free Text: LLE Cellulitis Subjective Update: Patient reports leg is feeling much better. Very minimal redness and tenderness remaining. She offers no complaints this morning. Functional Status: Reports: Pain Controlled, Tolerating Diet, Ambulating, Urinating. Denies: New Symptoms - Review of Systems General: Reports: No Symptoms. Denies: Fever, Weakness, Malaise, Chills HEENT: Reports: No Symptoms Pulmonary: Reports: No Symptoms Cardiovascular: Reports: Edema Gastrointestinal: Reports: No Symptoms Genitourinary: Reports: No Symptoms Musculoskeletal: Reports: No Symptoms Skin: Reports: No Symptoms Neurological: Reports: No Symptoms Psychiatric: Reports: No Symptoms - Patient Data Vitals - Most Recent: Last Vital Signs Temp 97.9 F 06/22/20 04:00 Pulse 75 06/22/20 07:32 Resp 18 06/22/20 04:00 BP 153/90 H 06/22/20 07:34 Pulse Ox 94 L 06/22/20 04:00 Weight - Most Recent: 201 lb 1.6 oz Med Orders - Current: Current Medications Acetaminophen (Tylenol) 650 mg PO Q6H PRN PRN Reason: Pain Alogliptin Benzoate (Alogliptin) 6.25 mg PO DAILY [facility] Last Admin: 06/22/20 07:33 Dose: 6.25 mg Documented by: Aspirin (Halfprin) 81 mg PO DAILY [facility] Last Admin: 06/22/20 07:33 Dose: 81 mg Documented by: Atorvastatin Calcium (Lipitor) 20 mg PO DAILY [facility] Last Admin: 06/22/20 07:33 Dose: 20 mg Documented by: Carvedilol (Coreg) 3.125 mg PO BIDMEALS [facility] Last Admin: 06/22/20 07:32 Dose: 3.125 mg Documented by: Ceftriaxone Sodium (Rocephin) 1 gm IVPUSH Q24H [facility] Last Admin: 06/21/20 16:37 Dose: 1 gm Documented by: Duloxetine HCl (Cymbalta) 60 mg PO DAILY [facility] Last Admin: 06/22/20 07:33 Dose: 60 mg Documented by: Enoxaparin Sodium (Lovenox) 30 mg SUBCUT Q24H [facility] Last Admin: 06/21/20 17:35 Dose: 30 mg Documented by: Furosemide (Lasix) 40 mg PO BIDDIURETIC [facility] Last Admin: 06/22/20 07:34 Dose: 40 mg Documented by: Gabapentin (Neurontin) 300 mg PO BID@0800,1200 [facility] Last Admin: 06/22/20 07:34 Dose: 300 mg Documented by: Gabapentin (Neurontin) 600 mg PO BEDTIME [facility] Last Admin: 06/21/20 19:26 Dose: 600 mg Documented by: Lisinopril (Prinivil) 2.5 mg PO DAILY [facility] Last Admin: 06/22/20 07:34 Dose: 2.5 mg Documented by: Magnesium Oxide (Magnesium Oxide) 500 mg PO DAILY [facility] Last Admin: 06/22/20 07:33 Dose: 500 mg Documented by: Nitroglycerin (Nitrostat) 0.4 mg SL ASDIRECTED PRN PRN Reason: Chest Pain Ondansetron HCl (Zofran Odt) 4 mg PO Q4H PRN PRN Reason: nausea, able to take PO Oxycodone/Acetaminophen (Percocet 325-5 Mg) 1 tab PO Q4H PRN PRN Reason: Pain (moderate 4-6) Potassium Chloride (Klor-Con 10) 10 meq PO BIDMEALS [facility] Last Admin: 06/22/20 07:33 Dose: 10 meq Documented by: Sodium Chloride (Saline Flush) 10 ml FLUSH ASDIRECTED PRN PRN Reason: Keep Vein Open Zolpidem Tartrate (Ambien) 5 mg PO BEDTIME PRN PRN Reason: Sleep Discontinued Medications Carvedilol (Coreg) 3.125 mg PO BID [facility] Furosemide (Lasix) 40 mg PO BIDDIURETIC [facility] Gabapentin (Neurontin) 300 mg PO Q4H PRN PRN Reason: Other Last Admin: 06/20/20 07:40 Dose: 300 mg Documented by: - Exam Quality Assessment: Reports: DVT Prophylaxis General: Reports: Alert, Oriented, No Acute Distress Neck: Reports: Supple Lungs: Reports: Clear to Auscultation, Normal Respiratory Effort Cardiovascular: Reports: Regular Rate, Irregular Rhythm, Murmurs GI/Abdominal Exam: Normal Bowel Sounds, Soft, Non-Tender, No Organomegaly, No Distention, No Abnormal Bruit, No Mass, Pelvis Stable Back Exam: Reports: Normal Inspection, Full Range of Motion Extremities: Normal Range of Motion, Normal Capillary Refill, Pedal Edema (2+ RLE, improving), Redness (small amount of redness to RLE). No: Increased Warmth Skin: Reports: Warm, Dry Wound/Incisions: Reports: Erythema Improving Neurological: Reports: No New Focal Deficit Psy/Mental Status: Reports: Alert, Normal Affect, Normal Mood
[2020-06-22] MEDS ORDERED: cefTRIAXone 1 GM Vial IVPUSH SCH (11:00)
== END 2020-06-22 11:20 | disposition home or self-care (01) | DRG 603 ==
LOC: CC.MS 16:32 → UNDOADMIN 16:32 → CC.MS 16:57
PROVIDERS: ADMIT Family Medicine; ATTEND Family Medicine
DX: L03.115 Cellulitis of right lower limb (principal); I50.22 Chronic systolic (congestive) heart failure; I48.0 Paroxysmal atrial fibrillation; E11.9 Type 2 diabetes mellitus without complications; Z79.4 Long term (current) use of insulin; I25.10 Atherosclerotic heart disease of native coronary artery without angina pectoris; I11.0 Hypertensive heart disease with heart failure; E78.5 Hyperlipidemia, unspecified; Z86.73 Personal history of transient ischemic attack (TIA), and cerebral infarction without residual deficits; Z88.0 Allergy status to penicillin; Z90.49 Acquired absence of other specified parts of digestive tract; Z90.710 Acquired absence of both cervix and uterus; Z96.653 Presence of artificial knee joint, bilateral; Z90.722 Acquired absence of ovaries, bilateral; Z95.0 Presence of cardiac pacemaker; Z90.81 Acquired absence of spleen
CPT/HCPCS: 36415; 80048; 82962; 83880; 85025; 86140; 93971-RT; 97110-GP; 97112-GP; 97161-GP; A9270-GY; J0696; J1650

== ENCOUNTER 2021-03-21 12:44 | Inpatient (IN) | payer MEDICARE, OTHER ==
--- NOTE | 2021-03-21 13:23 | EDM.PDOC ---
ED HPI GENERAL MEDICAL PROBLEM - General Chief Complaint: General Stated Complaint: Fall Time Seen by Provider: 03/21/21 13:10 Source of Information: Reports: EMS, RN History Limitations: Reports: Altered Mental Status - History of Present Illness INITIAL COMMENTS - FREE TEXT/NARRATIVE: Pt was brought in by EMS after falling forward in the [employer] parking lot. She is confused to person place or time. She does not remember that she was in to see Dr. Gonzalez earlier today for appt. She does not remember being in the grocery store or how she got to [place]. She has bruising to the left side of her face. Her left eye is swollen. She is able to see out of the left eye when she first arrived in the ER. She denies having double or blurred vision. She has 3 cm laceration to the left temporal area. It is bleeding actively. Pressure applied. She does have some tenderness to the left chest wall where she also hit the ground. She continues to ask what happened and where she is at. Airway is open breathing is regular. Saturations are stable circulation shows bleeding laceration to the left temporal area that was controlled with direct pressure and dressing. Multiple abrasions to the left side of face. She has some abrasions to the left arm that are not breathing. deformity- swelling to the face as above exposed- and no other deformities or abnormalities noted GCS= 14 as she is confused Onset: Sudden Location: Reports: Face, Upper Extremity, Left Associated Symptoms: Reports: Confusion Treatments BENEFITS SPECIALIST: Reports: Cervical Collar head Pain Score (Numeric/FACES): 4 - Related Data Allergies Allergy/AdvReac Type Severity Reaction Status Date / Time Penicillins Allergy Other Verified 03/21/21 13:02 Home Meds: Home Meds Aspirin [Halfprin] 81 mg PO DAILY 07/21/13 [History] Calcium Carbonate/Vitamin D3 [Calcium 600 + Vit D Tablet] 1 each PO DAILY 07/21/13 [History] Cholecalciferol (Vitamin D3) [Vitamin D3] 2,000 unit PO DAILY 07/21/13 [History] DULoxetine [Cymbalta] 60 mg PO DAILY 07/21/13 [History] Magnesium 500 mg PO DAILY 07/21/13 [History] Quinapril HCl 5 mg PO DAILY 07/21/13 [History] SitaGLIPtin [Januvia] 100 mg PO DAILY 07/21/13 [History] Vitamin B Complex [B Complex] 1 each PO DAILY 07/21/13 [History] atorvaSTATin Calcium [Atorvastatin Calcium] 20 mg PO DAILY 07/21/13 [History] carvediloL [Carvedilol] 3.125 mg PO BID 07/21/13 [History] Multivitamin [Multivitamins] 1 cap PO DAILY 03/09/18 [History] Nitroglycerin [Nitrostat] 0.4 mg SL ASDIRECTED PRN 03/09/18 [History] Potassium Chloride [Micro-K] 30 meq PO DAILY 03/09/18 [History] metOLazone [Metolazone] 2.5 mg PO DAILY PRN 03/09/18 [History] Gabapentin [Neurontin] 300 mg PO BID@0800,1200 30 Days #60 cap 06/22/20 [Rx] Gabapentin [Neurontin] 600 mg PO BEDTIME 30 Days #60 cap 06/22/20 [Rx] Bumetanide 2 mg PO DAILY@1400 03/21/21 [History] Bumetanide 3 mg PO QAM 03/21/21 [History] Past Medical History HEENT History: Reports: Cataract Cardiovascular History: Reports: Blood Clots/VTE/DVT, High Cholesterol, Hypertension, Pacemaker Gastrointestinal History: Reports: Cholelithiasis Genitourinary History: Reports: Urinary Incontinence 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: Fibroids Musculoskeletal History: Reports: Osteoarthritis, Osteoporosis Psychiatric History: Reports: Anxiety Endocrine/Metabolic History: Reports: Diabetes, Type II, Osteoporosis, Vitamin D Deficiency Oncologic (Cancer) History: Reports: Lymphoma - Past Surgical History HEENT Surgical History: Reports: Cataract Surgery, Naso-Sinus Surgery Cardiovascular Surgical History: Reports: Valve Replacement GI Surgical History: Reports: Appendectomy, Cholecystectomy, Other (See Below) Other GI Surgeries/Procedures: splenectomy Female Surgical History: Reports: Hysterectomy, Other (See Below) Other Female Surgeries/Procedures: hysterectomy secondary to uterine fibroids Musculoskeletal Surgical History: Reports: Arthroscopic Knee, Other (See Below) Other Musculoskeletal Surgeries/Procedures:: states her left shoulder is "shot" secondary to arthritis; states "should be replaced" Social & Family History - Family History Family Medical History: No Pertinent Family History - Caffeine Use Caffeine Use: Reports: None - Living Situation & Occupation Living situation: Reports: , Alone Occupation: Retired ED ROS GENERAL - Review of Systems Review Of Systems: See Below Constitutional: Reports: No Symptoms HEENT: Reports: Eye Pain Respiratory: Reports: No Symptoms Cardiovascular: Reports: Chest Pain (left side where bruising is located.) GI/Abdominal: Reports: No Symptoms Musculoskeletal: Reports: Arm Pain (where abrasions are located.) Skin: Reports: Bruising, Erythema, Wound (left temporal area.) Neurological: Reports: Confusion, Headache. Denies: Change in Speech ED EXAM, GENERAL - Physical Exam Exam: See Below Free Text/Narrative:: Pt was initially asking where she was and what happened. She went to CT scanning and when done she then recognized one of the tech that she had not recognized initially. As she was in the ER she slowly started to remember what had occurred earlier in the day such as seeing Dr. Gonzalez and what her A1c was earlier today. She does not remember falling or being at the grocery store. Her left eye became swollen to where she is no longer able to open it. She is still able to open the right eye and see normally. Her face swelling is from the forehead to the jaw. Exam Limited By: Altered Mental Status General Appearance: Alert, Mild Distress Eye Exam: Bilateral Eye: PERRL (Pupils are 3 mm and equal bilaterally initially.) Ears: Normal External Exam, Normal Canal Nose: Nasal Swelling (Nose is not tneder with palpation. Some swelling and bruising noted.) Throat/Mouth: Normal Inspection, Normal Oropharynx, Normal Voice, No Airway Compromise Head: Atraumatic, Normocephalic, Facial Swelling, Facial Tenderness Neck: Normal Inspection, Supple, Non-Tender, Full Range of Motion (After c spine was cleared by CT scan.) Respiratory/Chest: No Respiratory Distress, Lungs Clear, Normal Breath Sounds Cardiovascular: Regular Rate, Rhythm, No Edema GI/Abdominal: Normal Bowel Sounds, Soft, Non-Tender Back Exam: Normal Inspection Extremities: Normal Range of Motion, Normal Capillary Refill Neurological: Alert, Oriented (SHe became oriented as she was in the ER.) Skin Exam: Warm, Dry, Ecchymosis (to the left side of the face.), Other (small abrasions noted to the left arm and the left side of the face.) ED GENERAL MEDICAL PROCEDURES - Laceration/Wound Repair Left Face Lac/wound length in cm: 3 Appearance: Subcutaneous, Linear Anesthetic Type: Local Local Anesthesia - Lidocaine (Xylocaine): 1% with EPI Local Anesthetic Volume: 3cc Skin Prep: Other (Deepa clens) Exploration/Debridement/Repair: No Foreign Material Found Closed with: Sutures Suture Size: 4-0 # of Sutures: 5 Suture Type: Nylon, Interrupted, Simple Drain Placement: No Sterile Dressing Applied: Nurse Tetanus Status Addressed: Yes Complications: No Course - Vital Signs Last Recorded V/S: Last Vital Signs Temp 97.5 F 03/21/21 15:38 Pulse 66 03/21/21 15:38 Resp 16 03/21/21 15:38 BP 139/88 03/21/21 15:38 Pulse Ox 95 03/21/21 15:38 - Orders/Labs/Meds Orders: Active Orders 24 hr Category Date Time Status Cervical Spine wo Cont [CT] Stat Exams 03/21/21 12:48 Taken Chest 1V Frontal [CR] Stat Exams 03/21/21 12:48 Taken Head wo Cont [CT] Stat Exams 03/21/21 12:48 Taken Pelvis 1V or 2V [CR] Stat Exams 03/21/21 12:48 Taken UA W/HARPER RFLX IF INDICATED [URIN] Stat Lab 03/21/21 12:49 Ordered Medication Orders Acetaminophen (Acetaminophen 325 Mg Tab) 650 mg PO Q4H PRN PRN Reason: Pain (Mild 1-3)/fever Last Admin: 03/21/21 19:50 Dose: 650 mg Documented by: CARISSA Alogliptin Benzoate (Alogliptin 12.5 Mg Tab) 6.25 mg PO DAILY [facility] Aspirin (Aspirin 81 Mg Tab.Ec) 81 mg PO DAILY [facility] Atorvastatin Calcium (Atorvastatin 20 Mg Tab) 20 mg PO DAILY [facility] Bumetanide (Bumetanide 1 Mg Tab) 2 mg PO DAILY@1400 [facility] Bumetanide (Bumetanide 1 Mg Tab) 3 mg PO QAM [facility] Carvedilol (Carvedilol 12.5 Mg Tab) 3.125 mg PO BIDMEALS [facility] Last Admin: 03/21/21 18:34 Dose: Not Given Documented by: STONEY Duloxetine HCl (Duloxetine 30 Mg Cap) 60 mg PO DAILY [facility] Gabapentin (Gabapentin 300 Mg Cap) 300 mg PO BID@0800,1200 [facility] Gabapentin (Gabapentin 300 Mg Cap) 600 mg PO BEDTIME [facility] Last Admin: 03/21/21 19:49 Dose: 600 mg Documented by: CARISSA Lisinopril (Lisinopril 5 Mg Tab) 2.5 mg PO DAILY [facility] Magnesium Oxide (Magnesium Oxide 250 Mg Tab) 500 mg PO DAILY [facility] Metolazone (Metolazone 5 Mg Tab) 2.5 mg PO DAILY PRN PRN Reason: Other Potassium Chloride (Potassium Chloride 10 Meq Tab.Er) 30 meq PO DAILY [facility] Sodium Chloride (Sodium Chloride 0.9% 10 Ml Syringe) 10 ml FLUSH ASDIRECTED PRN PRN Reason: Keep Vein Open Labs: Laboratory Tests 03/21/21 03/21/21 03/21/21 Range/Units 13:19 13:19 13:19 WBC 7.5 (4.0-11.0) 10^3/uL RBC 3.95 L (4.00-5.50) x10^6/uL Hgb 11.0 L (12.0-16.0) g/dL Hct 34.1 L (37.0-47.0) % MCV 86.3 (83.0-97.0) fL MCH 27.8 (27.0-32.0) pg MCHC 32.3 (32.0-36.0) g/dL RDW Coeff of Zia 20.2 H (11.0-15.0) % Plt Count 156 (150-400) 10^3/uL Immature Gran % (Auto) 0.4 (0.0-4.9) % Neut % (Auto) 66.2 (41-71) % Lymph % (Auto) 13.8 L (24-44) % Mora % (Auto) 14.7 H (0-10) % Eos % (Auto) 3.7 (0-6) % Baso % (Auto) 1.2 H (0-1) % Neut # (Auto) 4.94 (1.80-8.00) x10^3/uL Lymph # (Auto) 1.03 (0.60-5.00) 10^3/uL Mora # (Auto) 1.10 (0.00-1.50) 10^3/uL Eos # (Auto) 0.28 (0.00-1.50) 10^3/uL Baso # (Auto) 0.09 (0.00-0.50) 10^3/uL Immature Gran # (Auto) 0.03 (0.00-0.49) 10^3/uL PT 13.3 H (9.7-12.3) SEC INR 1.24 H (0.92-1.18) Sodium 143 (136-145) mEq/L Potassium 4.6 (3.5-5.0) mEq/L Chloride 102 (98-106) mEq/L Carbon Dioxide 31 (21-32) mmol/L BUN 35 H (7-18) mg/dL Creatinine 1.6 H (0.6-1.0) mg/dL Est Cr Clr Drug Dosing 24.50 mL/min Estimated GFR (MDRD) 31 L (>=60) mL/min Glucose 141 H (75-99) mg/dL Calcium 8.8 (8.4-10.1) mg/dL Magnesium 2.6 H (1.8-2.4) mg/dL Total Bilirubin 1.6 H (0.0-1.0) mg/dL AST 26 (15-37) U/L ALT 15 (12-78) U/L Alkaline Phosphatase 148 H (46-116) U/L Troponin I High Sens 76.6 H* (<=51) pg/mL Total Protein 7.8 (6.4-8.2) g/dL Albumin 3.3 L (3.4-5.0) g/dL Meds: Medications Generic Name Dose Route Start Last Admin Trade Name Freq PRN Reason Stop Dose Admin Acetaminophen 650 mg 03/21/21 15:38 03/21/21 19:50 Acetaminophen 325 Mg Tab PO 650 mg Q4H PRN Administration Pain (Mild 1-3)/fever Alogliptin Benzoate 6.25 mg 03/22/21 08:00 Alogliptin 12.5 Mg Tab PO DAILY [facility] Aspirin 81 mg 03/22/21 08:00 Aspirin 81 Mg Tab.Ec PO DAILY [facility] Atorvastatin Calcium 20 mg 03/22/21 08:00 Atorvastatin 20 Mg Tab PO DAILY [facility] Bumetanide 2 mg 03/22/21 14:00 Bumetanide 1 Mg Tab PO DAILY@1400 [facility] Bumetanide 3 mg 03/22/21 08:00 Bumetanide 1 Mg Tab PO QAM [facility] Carvedilol 3.125 mg 03/21/21 17:30 03/21/21 18:34 Carvedilol 12.5 Mg Tab PO Not Given BIDMEALS [facility] Duloxetine HCl 60 mg 03/22/21 08:00 Duloxetine 30 Mg Cap PO DAILY [facility] Gabapentin 300 mg 03/22/21 08:00 Gabapentin 300 Mg Cap PO BID@0800,1200 [facility] Gabapentin 600 mg 03/21/21 20:00 03/21/21 19:49 Gabapentin 300 Mg Cap PO 600 mg BEDTIME [facility] Administration Lisinopril 2.5 mg 03/22/21 08:00 Lisinopril 5 Mg Tab PO DAILY [facility] Magnesium Oxide 500 mg 03/22/21 08:00 Magnesium Oxide 250 Mg Tab PO DAILY [facility] Metolazone 2.5 mg 03/21/21 16:38 Metolazone 5 Mg Tab PO DAILY PRN Other Potassium Chloride 30 meq 03/22/21 08:00 Potassium Chloride 10 Meq Tab.Er PO DAILY [facility] Sodium Chloride 10 ml 03/21/21 15:38 Sodium Chloride 0.9% 10 Ml Syringe FLUSH ASDIRECTED PRN Keep Vein Open - Re-Assessments/Exams Free Text/Narrative Re-Assessment/Exam: 03/21/[address] of head, neck negative. xray of chest and pelvis are negative for any fractures. Her GCS is now 15 as she remember what she did earlier today. She is now oriented x 3. Will admit to the hospital as she initially was confused and she currently has significant swelling to her face and she needs neuro checks. Departure - Departure Time of Disposition: 15:30 Disposition: Admitted As Inpatient 67 Condition: Fair Clinical Impression: Confusion Closed head injury Qualifiers: Encounter type: initial encounter Qualified Code(s): S09.90XA - Unspecified injury of head, initial encounter Fall Qualifiers: Encounter type: initial encounter Qualified Code(s): W19.XXXA - Unspecified fall, initial encounter - Discharge Information *PRESCRIPTION DRUG MONITORING PROGRAM REVIEWED*: Not Applicable *COPY OF PRESCRIPTION DRUG MONITORING REPORT IN PATIENT KARLY: Not Applicable Sepsis Event Note (ED) - Evaluation Sepsis Screening Result: No Definite Risk - Focused Exam Vital Signs: Vital Signs Temp Pulse Resp BP Pulse Ox 03/21/21 12:44 97.3 F 68 14 142/80 H 88 L - Problem List & Annotations (1) Closed head injury SNOMED Code(s): 590088352538 Code(s): S09.90XA - UNSPECIFIED INJURY OF HEAD, INITIAL ENCOUNTER Status: Acute Priority: High Current Visit: Yes Qualifiers: Encounter type: initial encounter Qualified Code(s): S09.90XA - Unspecified injury of head, initial encounter (2) Confusion SNOMED Code(s): 742440350 Code(s): R41.0 - DISORIENTATION, UNSPECIFIED Status: Acute Priority: High Current Visit: Yes (3) Fall SNOMED Code(s): 5555438, 189215705 Code(s): W19.XXXA - UNSPECIFIED FALL, INITIAL ENCOUNTER Status: Acute Priority: High Current Visit: Yes Qualifiers: Encounter type: initial encounter Qualified Code(s): W19.XXXA - Unspecified fall, initial encounter - Problem List Review Problem List Initiated/Reviewed/Updated: Yes - My Orders Last 24 Hours: My Active Orders 03/21/21 12:48 Cervical Spine wo Cont [CT] Stat Chest 1V Frontal [CR] Stat Head wo Cont [CT] Stat Pelvis 1V or 2V [CR] Stat 03/21/21 12:49 UA W/HARPER RFLX IF INDICATED [URIN] Stat - Assessment/Plan Admission H&P: Please use this note as an admission H&P Last 24 Hours: My Active Orders 03/21/21 12:48 Cervical Spine wo Cont [CT] Stat Chest 1V Frontal [CR] Stat Head wo Cont [CT] Stat Pelvis 1V or 2V [CR] Stat 03/21/21 12:49 UA W/HARPER RFLX IF INDICATED [URIN] Stat Plan: Pt is being admitted due to the initial confusion and the elevated Troponins. Both [facility] and both [facility] were contacted about possible transfer due to the elevated Troponins. They are all full and are not able to take transfers. Dr Gonzalez was contacted and pt was reviewed with him. Will repeat labs in the AM. Neuro checks during the night. will keep on telemetry CT of head was reviewed with Dr. Gonzalez. GCS on discharge from the ER =15
[2021-03-21] MEDS ORDERED: Acetaminophen 325 MG Tab PO PRN (15:38)
[2021-03-21] MEDS ORDERED: Sodium Chloride 0.9% 10 ML Syringe FLUSH PRN (15:38)
[2021-03-21] MEDS ORDERED: Metolazone 5 MG Tab PO PRN (16:38)
[2021-03-21] MEDS: Carvedilol 12.5 MG Tab PO SCH (18:34)
[2021-03-21] MEDS: Gabapentin 300 MG Cap PO SCH (19:49)
[2021-03-21] MEDS ORDERED: Furosemide 80 MG Tab PO SCH (20:00)
[2021-03-22] MEDS: Potassium Chloride 10 MEQ Tab.ER PO SCH (08:07)
[2021-03-22] MEDS: Aspirin 81 MG Tab.EC PO SCH (08:08)
[2021-03-22] MEDS: Carvedilol 12.5 MG Tab PO SCH ×2 (08:08→17:29)
[2021-03-22] MEDS: DULoxetine 30 MG Cap PO SCH (08:08)
[2021-03-22] MEDS: Gabapentin 300 MG Cap PO SCH ×3 (08:13→19:31)
[2021-03-22] MEDS: Bumetanide 1 MG Tab PO SCH (08:14)
[2021-03-22] MEDS: Lisinopril 5 MG Tab PO SCH (08:14)
[2021-03-22] MEDS: atorvaSTATin 20 MG Tab PO SCH (08:15)
[2021-03-22] MEDS ORDERED: Bumetanide 1 MG Tab PO SCH (14:00)
--- NOTE | 2021-03-22 14:13 | PN ---
DATE: 03/22/2021 S: Roseline is an 85-year-old female well known to me who was at the grocery store pushing her cart and fell and had a closed head injury. She was evaluated by Candelaria Guerra in our emergency room, had imaging of her pelvis, chest, neck, and head, all of which were fine. She does not remember the accident, had amnesia from the time it happened until she was probably in her hospital room. It is uncertain whether she tripped or had a syncopal episode. She has been on telemetry since here. Her vital signs have been stable. She has been afebrile with no drop in her sats, pulse has been in the 60s and irregular. Does suffer from chronic AFib, has had a Watchman procedure, and is no longer anticoagulated. O: HEENT: Today, the patient has marked evidence of trauma to the face. She has contusions in the forehead. Right eye is black and blue. Left eye is swollen shut. She has no pharyngeal lesions. NECK: Supple. LUNGS: Lung sounds appear clear albeit diminished. CARDIAC: Tones are irregular and controlled. ABDOMEN: Soft. EXTREMITIES: She has 1+ edema below the knees which is chronic. ASSESSMENT: FALL WITH CLOSED HEAD INJURY. P: The patient looks clinically well. Her vitals are fine. She is showing no neurologic deterioration. I am not convinced she needs a followup CT of her head at this point. We will have PT see her for strengthening and she does have family members present who are willing to help her at home, but at this time I think she needs to wait at least until tomorrow as we continue to monitor her closely. HUGO/NINA /[id number]
[2021-03-22] MEDS ORDERED: Bumetanide 1 MG Tab ONE (17:51)
[2021-03-23] MEDS: Bumetanide 1 MG Tab PO SCH (08:04)
[2021-03-23] MEDS: DULoxetine 30 MG Cap PO SCH (08:04)
[2021-03-23] MEDS: Aspirin 81 MG Tab.EC PO SCH (08:05)
[2021-03-23] MEDS: Potassium Chloride 10 MEQ Tab.ER PO SCH (08:05)
[2021-03-23] MEDS: Carvedilol 12.5 MG Tab PO SCH (08:05)
[2021-03-23] MEDS: Lisinopril 5 MG Tab PO SCH (08:06)
[2021-03-23] MEDS: atorvaSTATin 20 MG Tab PO SCH (08:06)
[2021-03-23 08:07] VITALS: BP 126/57; PULSE 68
[2021-03-23] MEDS: Gabapentin 300 MG Cap PO SCH ×2 (08:07→12:20)
--- NOTE | 2021-03-23 08:58 | PCM.PN ---
- General Info Date of Service: 03/23/21 Admission Dx/Problem (Free Text): Admission Diagnosis/Problem Admission Diagnosis/Problem Head injury without skull fracture syncope left chest pain Subjective Update: Patient was admitted after syncope and fall. She was being monitored for head injury and elevated troponin. patient has been doing well, some minor left sided chest pain with movement and deep breathing. She did have one episode of o2 sats of 88% while sleeping but this has not recurred. She is not on a blood thinner and has not been for years. She has a pacemaker, and significant CHF and takes bumex for this. she states she was feeling fine prior to the syncope episode, no idea why she fell and has no recollection of the transport to the hospital. Is eating well, no fevers, passing gas but no bowel movements. she has a cane and a walker at home and uses them. Her son lives locally and can stay with her for as long as needed and her daughter that is an OT is coming to town to be here for several days. Patient has significant facal swelling over the left eye but states she is able to see out of the eye. Functional Status: Reports: Pain Controlled, Tolerating Diet, Urinating. Denies: Ambulating, Incentive Spirometry - Review of Systems General: Reports: No Symptoms HEENT: Reports: Other (facial swelling left face, significant over the eye, but can see out of it) Pulmonary: Reports: No Symptoms Cardiovascular: Reports: Chest Pain (reproducible with palpation and deep breath on the left chest) Gastrointestinal: Reports: No Symptoms, Flatus Genitourinary: Reports: No Symptoms Musculoskeletal: Reports: Shoulder Pain (chronically left shoulder, not new) Skin: Reports: Bruising (with swelling of the face) Neurological: Reports: No Symptoms Psychiatric: Reports: No Symptoms - Patient Data Vitals - Most Recent: Last Vital Signs Temp 36.6 C 03/23/21 07:46 Pulse 68 03/23/21 08:05 Resp 18 03/23/21 07:46 BP 126/57 L 03/23/21 08:06 Pulse Ox 96 03/23/21 07:46 Weight - Most Recent: 92.533 kg Imaging Impressions - Last 24 Hours: chest x-ray without penumothorax, pacer noted and mesh from previous vascular surgery. No new acute signs compared to previous. Preliminary report only Lab Results Last 24 Hours: Laboratory Results - last 24 hr 12/03/21 12/03/21 12/04/21 Range/Units 09:48 09:48 07:20 WBC 7.2 9.2 (4.0-11.0) 10^3/uL RBC 3.59 L 3.54 L (4.00-5.50) x10^6/uL Hgb 10.1 L 9.9 L (12.0-16.0) g/dL Hct 31.4 L 30.7 L (37.0-47.0) % MCV 87.5 86.7 (83.0-97.0) fL MCH 28.1 28.0 (27.0-32.0) pg MCHC 32.2 32.2 (32.0-36.0) g/dL RDW Coeff of Zia 20.4 H 20.4 H (11.0-15.0) % Plt Count 171 150 (150-400) 10^3/uL Immature Gran % (Auto) 0.3 0.2 (0.0-4.9) % Neut % (Auto) 71.7 H 64.7 (41-71) % Lymph % (Auto) 11.1 L 14.0 L (24-44) % Chambers % (Auto) 13.3 H 17.3 H (0-10) % Eos % (Auto) 2.6 2.9 (0-6) % Baso % (Auto) 1.0 0.9 (0-1) % Neut # (Auto) 5.18 5.94 (1.80-8.00) x10^3/uL Lymph # (Auto) 0.80 1.29 (0.60-5.00) 10^3/uL Chambers # (Auto) 0.96 1.59 H (0.00-1.50) 10^3/uL Eos # (Auto) 0.19 0.27 (0.00-1.50) 10^3/uL Baso # (Auto) 0.07 0.08 (0.00-0.50) 10^3/uL Immature Gran # (Auto) 0.02 0.02 (0.00-0.49) 10^3/uL Sodium 144 (136-145) mEq/L Potassium 3.8 (3.5-5.0) mEq/L Chloride 105 (98-106) mEq/L Carbon Dioxide 30 (21-32) mmol/L BUN 34 H (7-18) mg/dL Creatinine 1.8 H (0.6-1.0) mg/dL Est Cr Clr Drug Dosing 23.47 mL/min Estimated GFR (MDRD) 27 L (>=60) mL/min Glucose 221 H D (75-99) mg/dL Calcium 8.4 (8.4-10.1) mg/dL Magnesium 2.5 H (1.8-2.4) mg/dL Total Bilirubin 1.7 H (0.0-1.0) mg/dL AST 21 (15-37) U/L ALT 14 (12-78) U/L Alkaline Phosphatase 139 H (46-116) U/L Troponin I High Sens 44.1 (<=51) pg/mL Total Protein 7.3 (6.4-8.2) g/dL Albumin 3.2 L (3.4-5.0) g/dL Med Orders - Current: Current Medications Acetaminophen (Acetaminophen 325 Mg Tab) 650 mg PO Q4H PRN PRN Reason: Pain (Mild 1-3)/fever Last Admin: 03/21/21 19:50 Dose: 650 mg Documented by: Alogliptin Benzoate (Alogliptin 12.5 Mg Tab) 6.25 mg PO DAILY [facility] Last Admin: 03/23/21 08:04 Dose: 6.25 mg Documented by: Aspirin (Aspirin 81 Mg Tab.Ec) 81 mg PO DAILY [facility] Last Admin: 03/23/21 08:05 Dose: 81 mg Documented by: Atorvastatin Calcium (Atorvastatin 20 Mg Tab) 20 mg PO DAILY [facility] Last Admin: 03/23/21 08:06 Dose: 20 mg Documented by: Bumetanide (Bumetanide 1 Mg Tab) 2 mg PO DAILY@1400 [facility] Last Admin: 03/22/21 17:28 Dose: 2 mg Documented by: Bumetanide (Bumetanide 1 Mg Tab) 3 mg PO QAM [facility] Last Admin: 03/23/21 08:04 Dose: 3 mg Documented by: Carvedilol (Carvedilol 12.5 Mg Tab) 3.125 mg PO BIDMEALS [facility] Last Admin: 03/23/21 08:05 Dose: 3.125 mg Documented by: Duloxetine HCl (Duloxetine 30 Mg Cap) 60 mg PO DAILY [facility] Last Admin: 03/23/21 08:04 Dose: 60 mg Documented by: Gabapentin (Gabapentin 300 Mg Cap) 300 mg PO BID@0800,1200 [facility] Last Admin: 03/23/21 08:07 Dose: 300 mg Documented by: Gabapentin (Gabapentin 300 Mg Cap) 600 mg PO BEDTIME [facility] Last Admin: 03/22/21 19:31 Dose: 600 mg Documented by: Lisinopril (Lisinopril 5 Mg Tab) 2.5 mg PO DAILY [facility] Last Admin: 03/23/21 08:06 Dose: 2.5 mg Documented by: Magnesium Oxide (Magnesium Oxide 250 Mg Tab) 500 mg PO DAILY [facility] Last Admin: 03/23/21 08:04 Dose: 500 mg Documented by: Metolazone (Metolazone 5 Mg Tab) 2.5 mg PO DAILY PRN PRN Reason: Other Potassium Chloride (Potassium Chloride 10 Meq Tab.Er) 30 meq PO DAILY [facility] Last Admin: 03/23/21 08:05 Dose: 30 meq Documented by: Sodium Chloride (Sodium Chloride 0.9% 10 Ml Syringe) 10 ml FLUSH ASDIRECTED PRN PRN Reason: Keep Vein Open Discontinued Medications Bumetanide (Bumetanide 1 Mg Tab) Confirm Administered Dose 2 mg .ROUTE .STK-MED ONE Stop: 03/22/21 17:52 Last Admin: 03/22/21 18:36 Dose: Not Given Documented by: - Exam Quality Assessment: No: Supplemental Oxygen, Skin Breakdown General: Alert, Oriented, Cooperative HEENT: Pupils Equal, Pupils Reactive, EOMI, Other (significant swelling periorbital of the left eye. laceration without bleeding. no EOM entrapement) Neck: Trachea Midline Lungs: Crackles (bases minimally.), Other (mild tenderness to palpation of the left lateral chest, no subcutaneous emphysema or crepitus, no bruising) GI/Abdominal Exam: Normal Bowel Sounds, Soft, Non-Tender Extremities: Normal Inspection, Normal Capillary Refill, Pedal Edema (minimal 1+ piting bilateral), Other (minimal tenderness to the palpation of the left calf. negative homans) Peripheral Pulses: 3+: Dorsalis Pedis (L), Dorsalis Pedis (R) Skin: Warm Wound/Incisions: Healing Well, Dressing Dry and Intact, No Drainage Neurological: No New Focal Deficit Psy/Mental Status: Alert, Normal Affect, Normal Mood - Patient Data Lab Results Last 24 hrs: Laboratory Results - last 24 hr 03/22/21 03/22/21 03/23/21 Range/Units 09:48 09:48 07:20 WBC 7.2 9.2 (4.0-11.0) 10^3/uL RBC 3.59 L 3.54 L (4.00-5.50) x10^6/uL Hgb 10.1 L 9.9 L (12.0-16.0) g/dL Hct 31.4 L 30.7 L (37.0-47.0) % MCV 87.5 86.7 (83.0-97.0) fL MCH 28.1 28.0 (27.0-32.0) pg MCHC 32.2 32.2 (32.0-36.0) g/dL RDW Coeff of Zia 20.4 H 20.4 H (11.0-15.0) % Plt Count 171 150 (150-400) 10^3/uL Immature Gran % (Auto) 0.3 0.2 (0.0-4.9) % Neut % (Auto) 71.7 H 64.7 (41-71) % Lymph % (Auto) 11.1 L 14.0 L (24-44) % Chambers % (Auto) 13.3 H 17.3 H (0-10) % Eos % (Auto) 2.6 2.9 (0-6) % Baso % (Auto) 1.0 0.9 (0-1) % Neut # (Auto) 5.18 5.94 (1.80-8.00) x10^3/uL Lymph # (Auto) 0.80 1.29 (0.60-5.00) 10^3/uL Chambers # (Auto) 0.96 1.59 H (0.00-1.50) 10^3/uL Eos # (Auto) 0.19 0.27 (0.00-1.50) 10^3/uL Baso # (Auto) 0.07 0.08 (0.00-0.50) 10^3/uL Immature Gran # (Auto) 0.02 0.02 (0.00-0.49) 10^3/uL Sodium 144 (136-145) mEq/L Potassium 3.8 (3.5-5.0) mEq/L Chloride 105 (98-106) mEq/L Carbon Dioxide 30 (21-32) mmol/L BUN 34 H (7-18) mg/dL Creatinine 1.8 H (0.6-1.0) mg/dL Est Cr Clr Drug Dosing 23.47 mL/min Estimated GFR (MDRD) 27 L (>=60) mL/min Glucose 221 H D (75-99) mg/dL Calcium 8.4 (8.4-10.1) mg/dL Magnesium 2.5 H (1.8-2.4) mg/dL Total Bilirubin 1.7 H (0.0-1.0) mg/dL AST 21 (15-37) U/L ALT 14 (12-78) U/L Alkaline Phosphatase 139 H (46-116) U/L Troponin I High Sens 44.1 (<=51) pg/mL Total Protein 7.3 (6.4-8.2) g/dL Albumin 3.2 L (3.4-5.0) g/dL Result Diagrams: 03/23/21 07:20 03/22/21 09:48 Sepsis Event Note - Evaluation Sepsis Screening Result: No Definite Risk - Focused Exam Vital Signs: Vital Signs Temp Pulse Pulse Resp BP BP BP 03/23/21 08:06 126/57 L 03/23/21 08:05 68 126/57 L 03/23/21 07:46 36.6 C 81 18 125/67 03/23/21 03:25 37.1 C 84 20 140/72 03/23/21 00:01 03/22/21 23:56 38.1 C 69 20 138/67 Pulse Ox 03/23/21 08:06 03/23/21 08:05 03/23/21 07:46 96 03/23/21 03:25 96 03/23/21 00:01 98 03/22/21 23:56 88 L - Problem List & Annotations (1) Closed head injury SNOMED Code(s): 109165809089 Code(s): S09.90XA - UNSPECIFIED INJURY OF HEAD, INITIAL ENCOUNTER Status: Acute Priority: High Current Visit: Yes Qualifiers: Encounter type: initial encounter Qualified Code(s): S09.90XA - Unspecified injury of head, initial encounter Annotation/Comment:: Patient has significant facial swelling, but can see out fo the left eye, confusion has cleared but still some retrograde amensia. continue local cares, safe to go home with assistance in regards to this problem (2) Fall SNOMED Code(s): 3365862, 393785706 Code(s): W19.XXXA - UNSPECIFIED FALL, INITIAL ENCOUNTER Status: Acute Priority: High Current Visit: Yes Qualifiers: Encounter type: initial encounter Qualified Code(s): W19.XXXA - Unspecified fall, initial encounter Annotation/Comment:: Unsure of the context of the fall. No major injury other than swelling. need to further investigate reasons out patient. Will ambulate with walker today to ensure vitals are stable, and she is safe to return home with help (3) CHF, Congestive heart failure SNOMED Code(s): 87271814 Code(s): I50.9 - HEART FAILURE, UNSPECIFIED Status: Acute Current Visit: No Annotation/Comment:: Patient has well documented heart failure, this could have caused the slight elevation with the troponin that has not improved to normal. geting trace edema and creatine slighe elevated but bumex has been held. [facility] send home on this, needs close follow up with PCP. Has pacemaker, needs interogation to rule out arrrythmia as source of syncope. has home unit. Needs follow up with Dr. Wright when [facility] comes to [facility] next (4) Syncope SNOMED Code(s): 277635319 Code(s): R55 - SYNCOPE AND COLLAPSE Status: Acute Current Visit: Yes Annotation/Comment:: Patient had syncope without premonition. history of DVT/PE. Not on a blood thinner. needs pacer interrogation, echocardiogram, dopplers of carotids to rule of stenosis and possible TIA causing the syncope. no further episodes. - Problem List Review Problem List Initiated/Reviewed/Updated: Yes - My Orders Last 24 Hours: My Active Orders 03/23/21 08:10 Incentive Spirometry [RT Incentive Spirometry] [RC] Q1HWA Chest 2V [CR] Routine - Assessment Assessment:: syncope chf head injury - Plan Plan:: chest x-ray was repeated today and no pneumothorax seen, no pneumonia. Not hypoxic with minimal activity. will ambulate to see if she is hypoxic or able to return home with walker. Incentive spirometer given for every hour while awake to prevent pneumonia needs further studies, interrogation of pacer (has home unit and can do there), echocardiogram, and carotid dopplers to rule of stenosis or valvular problems c ausing the syncope. needs appointment to follow up with cardiology due to increasing fatigue per s on, concern for worsening failure.
--- NOTE | 2021-03-23 11:36 | PCM.DCSUM1 ---
Discharge Summary - Hospital Course Free Text/Narrative:: pateint was able to ambulate today, maintained sats of 94%, has help at home and troponin has normalized. Would like to go home prior to snow starting. HPI Initial Comments: patient had syncope and fall. Evaluation without fracture intracranial bleeding or cause for syncope No repeated events. slight elevation of troponin, resolved. needs outpatient follow up and has help at home Diagnosis: Stroke: No Modified Bacon Scale: No Signif.Disability Despite Sympt.Able to Carry Out Usual Act./Duties Modified Bacon Scale Score: 1 - Discharge Data Discharge Date: 03/23/21 Discharge Disposition: Home, Self-Care 01 Condition: Good - Referral to Home Health Primary Care Physician: Ernie Gonzalez MD - Discharge Diagnosis/Problem(s) (1) Closed head injury SNOMED Code(s): 887573469146 ICD Code: S09.90XA - UNSPECIFIED INJURY OF HEAD, INITIAL ENCOUNTER Status: Acute Priority: High Current Visit: Yes Problem Details: Patient has significant facial swelling, but can see out fo the left eye, confusion has cleared but still some retrograde amensia. continue local cares, safe to go home with assistance in regards to this problem Qualifiers: Encounter type: initial encounter Qualified Code(s): S09.90XA - Unspecified injury of head, initial encounter (2) Fall SNOMED Code(s): 6067696, 477757256 ICD Code: W19.XXXA - UNSPECIFIED FALL, INITIAL ENCOUNTER Status: Acute Priority: High Current Visit: Yes Problem Details: Unsure of the context of the fall. No major injury other than swelling. need to further investigate reasons out patient. Will ambulate with walker today to ensure vitals are st able, and she is safe to return home with help Qualifiers: Encounter type: initial encounter Qualified Code(s): W19.XXXA - Unspecified fall, initial encounter (3) CHF, Congestive heart failure SNOMED Code(s): 26196199 ICD Code: I50.9 - HEART FAILURE, UNSPECIFIED Status: Acute Current Visit: No Problem Details: Patient has well documented heart failure, this could have caused the slight elevation with the troponin that has not improved to normal. geting trace edema and creatine slighe elevated but bumex has been held. Zacarias send home on this, needs close follow up with PCP. Has pacemaker, needs interogation to rule out arrrythmia as source of syncope. has home unit. Needs follow up with Dr. Wright when h gege comes to [facility] next (4) Syncope SNOMED Code(s): 199757441 ICD Code: R55 - SYNCOPE AND COLLAPSE Status: Acute Current Visit: Yes Problem Details: Patient had syncope without premonition. history of DVT/PE. Not on a blood thinner. needs pacer interrogation, echocardiogram, dopplers of carotids to rule of stenosis and possible TIA causing the syncope. no further episodes. - Patient Summary/Data Consults: Consultations 03/22/21 09:22 Consult to Physical Therapy [PT Evaluation and Treatment] [CONS] Routine Recommended Follow-up Testing/Procedures: carotid dopplers, pacemaker interrogation, echocardiogram see PCP this week - Patient Instructions Diet: Heart Healthy Diet, Diabetic Diet Fluid Restriction: 1500 mL Activity: Apply Ice, As Tolerated, Cough & Deep Breathe (with incentive spirometry every hour while awake and walking every 1-2 hours while awake with walker at all times) Driving: Do Not Drive (until cleared by PCP due to syncope ( passing out)) Wound/Incision, Other: sutures to be removed 5-7 days after placement with PCP Notify Provider of: Fever, Increased Pain, Swelling and Redness, Drainage Other/Special Instructions: You must walk with walker at all times, and ambulate every 1-2 hours while awae. the incentive spirometer needs 10 repetitions every hours while awake to prevent pneumonia. pacemaker must be interrogated at return to home. Needs ultrasound of the heart, neck arteries and follow up with cardiology in the next week - Discharge Plan *PRESCRIPTION DRUG MONITORING PROGRAM REVIEWED*: Not Applicable *COPY OF PRESCRIPTION DRUG MONITORING REPORT IN PATIENT KARLY: Not Applicable Home Medications: Home Meds Aspirin [Halfprin] 81 mg PO DAILY 07/21/13 [History] Calcium Carbonate/Vitamin D3 [Calcium 600 + Vit D Tablet] 1 each PO DAILY 07/21/13 [History] Cholecalciferol (Vitamin D3) [Vitamin D3] 2,000 unit PO DAILY 07/21/13 [History] DULoxetine [Cymbalta] 60 mg PO DAILY 07/21/13 [History] Magnesium 500 mg PO DAILY 07/21/13 [History] Quinapril HCl 5 mg PO DAILY 07/21/13 [History] SitaGLIPtin [Januvia] 100 mg PO DAILY 07/21/13 [History] Vitamin B Complex [B Complex] 1 each PO DAILY 07/21/13 [History] atorvaSTATin Calcium [Atorvastatin Calcium] 20 mg PO DAILY 07/21/13 [History] carvediloL [Carvedilol] 3.125 mg PO BID 07/21/13 [History] Multivitamin [Multivitamins] 1 cap PO DAILY 03/09/18 [History] Nitroglycerin [Nitrostat] 0.4 mg SL ASDIRECTED PRN 03/09/18 [History] Potassium Chloride [Micro-K] 30 meq PO DAILY 03/09/18 [History] metOLazone [Metolazone] 2.5 mg PO DAILY PRN 03/09/18 [History] Gabapentin [Neurontin] 300 mg PO BID@0800,1200 30 Days #60 cap 06/22/20 [Rx] Gabapentin [Neurontin] 600 mg PO BEDTIME 30 Days #60 cap 06/22/20 [Rx] Bumetanide 2 mg PO DAILY@1400 03/21/21 [History] Bumetanide 3 mg PO QAM 03/21/21 [History] Oxygen Therapy Mode: Room Air Patient Handouts: Head Injury, Adult, [id number], Syncope, [id number], Heart Failure, Self-Care, [id number], How to Use an Incentive Spirometer, Incentive Spirometer Record Forms: ED Department Discharge Referrals: Ernie Gonzalez MD [Primary Care Provider] - - Discharge Summary/Plan Comment DC Time >30 min.: No Total # of Minutes for Discharge Time: 29 - General Info Date of Service: 03/23/21 Admission Dx/Problem (Free Text: Admission Diagnosis/Problem Admission Diagnosis/Problem Head injury without skull fracture syncope left chest pain Subjective Update: Patient was admitted after syncope and fall. She was being monitored for head injury and elevated troponin. patient has been doing well, some minor left sided chest pain with movement and deep breathing. She did have one episode of o2 sats of 88% while sleeping but this has not recurred. She is not on a blood thinner and has not been for years. She has a pacemaker, and significant CHF and takes bumex for this. she states she was feeling fine prior to the syncope episode, no idea why she fell and has no recollection of the transport to the hospital. Is eating well, no fevers, passing gas but no bowel movements. she has a cane and a walker at home and uses them. Her son lives locally and can stay with her for as long as needed and her daughter that is an OT is coming to town to be here for several days. Patient has significant facal swelling over the left eye but states she is able to see out of the eye. Functional Status: Reports: Pain Controlled, Tolerating Diet, Ambulating, Incentive Spirometry - Review of Systems General: Reports: No Symptoms HEENT: Reports: No Symptoms Pulmonary: Reports: No Symptoms Cardiovascular: Reports: No Symptoms Gastrointestinal: Reports: No Symptoms Genitourinary: Reports: No Symptoms Musculoskeletal: Reports: No Symptoms Skin: Reports: No Symptoms Neurological: Reports: No Symptoms - Patient Data Vitals - Most Recent: Last Vital Signs Temp 36.6 C 03/23/21 07:46 Pulse 68 03/23/21 08:05 Resp 18 03/23/21 07:46 BP 126/57 L 03/23/21 08:06 Pulse Ox 96 03/23/21 07:46 Weight - Most Recent: 92.533 kg Lab Results - Last 24 hrs: Laboratory Results - last 24 hr 03/23/21 03/23/21 Range/Units 07:20 07:20 WBC 9.2 (4.0-11.0) 10^3/uL RBC 3.54 L (4.00-5.50) x10^6/uL Hgb 9.9 L (12.0-16.0) g/dL Hct 30.7 L (37.0-47.0) % MCV 86.7 (83.0-97.0) fL MCH 28.0 (27.0-32.0) pg MCHC 32.2 (32.0-36.0) g/dL RDW Coeff of Zia 20.4 H (11.0-15.0) % Plt Count 150 (150-400) 10^3/uL Immature Gran % (Auto) 0.2 (0.0-4.9) % Neut % (Auto) 64.7 (41-71) % Lymph % (Auto) 14.0 L (24-44) % [place] % (Auto) 17.3 H (0-10) % Eos % (Auto) 2.9 (0-6) % Baso % (Auto) 0.9 (0-1) % Neut # (Auto) 5.94 (1.80-8.00) x10^3/uL Lymph # (Auto) 1.29 (0.60-5.00) 10^3/uL [place] # (Auto) 1.59 H (0.00-1.50) 10^3/uL Eos # (Auto) 0.27 (0.00-1.50) 10^3/uL Baso # (Auto) 0.08 (0.00-0.50) 10^3/uL Immature Gran # (Auto) 0.02 (0.00-0.49) 10^3/uL Sodium 142 (136-145) mEq/L Potassium 4.2 (3.5-5.0) mEq/L Chloride 105 (98-106) mEq/L Carbon Dioxide 29 (21-32) mmol/L BUN 33 H (7-18) mg/dL Creatinine 1.8 H (0.6-1.0) mg/dL Est Cr Clr Drug Dosing 23.47 mL/min Estimated GFR (MDRD) 27 L (>=60) mL/min Glucose 152 H D (75-99) mg/dL Calcium 8.2 L (8.4-10.1) mg/dL Troponin I High Sens 40.3 (<=51) pg/mL Med Orders - Current: Current Medications Acetaminophen (Acetaminophen 325 Mg Tab) 650 mg PO Q4H PRN PRN Reason: Pain (Mild 1-3)/fever Last Admin: 03/21/21 19:50 Dose: 650 mg Documented by: Alogliptin Benzoate (Alogliptin 12.5 Mg Tab) 6.25 mg PO DAILY [facility] Last Admin: 03/23/21 08:04 Dose: 6.25 mg Documented by: Aspirin (Aspirin 81 Mg Tab.Ec) 81 mg PO DAILY [facility] Last Admin: 03/23/21 08:05 Dose: 81 mg Documented by: Atorvastatin Calcium (Atorvastatin 20 Mg Tab) 20 mg PO DAILY [facility] Last Admin: 03/23/21 08:06 Dose: 20 mg Documented by: Bumetanide (Bumetanide 1 Mg Tab) 2 mg PO DAILY@1400 [facility] Last Admin: 03/22/21 17:28 Dose: 2 mg Documented by: Bumetanide (Bumetanide 1 Mg Tab) 3 mg PO QAM [facility] Last Admin: 03/23/21 08:04 Dose: 3 mg Documented by: Carvedilol (Carvedilol 12.5 Mg Tab) 3.125 mg PO BIDMEALS [facility] Last Admin: 03/23/21 08:05 Dose: 3.125 mg Documented by: Duloxetine HCl (Duloxetine 30 Mg Cap) 60 mg PO DAILY [facility] Last Admin: 03/23/21 08:04 Dose: 60 mg Documented by: Gabapentin (Gabapentin 300 Mg Cap) 300 mg PO BID@0800,1200 [facility] Last Admin: 03/23/21 08:07 Dose: 300 mg Documented by: Gabapentin (Gabapentin 300 Mg Cap) 600 mg PO BEDTIME [facility] Last Admin: 03/22/21 19:31 Dose: 600 mg Documented by: Lisinopril (Lisinopril 5 Mg Tab) 2.5 mg PO DAILY [facility] Last Admin: 03/23/21 08:06 Dose: 2.5 mg Documented by: Magnesium Oxide (Magnesium Oxide 250 Mg Tab) 500 mg PO DAILY [facility] Last Admin: 03/23/21 08:04 Dose: 500 mg Documented by: Metolazone (Metolazone 5 Mg Tab) 2.5 mg PO DAILY PRN PRN Reason: Other Potassium Chloride (Potassium Chloride 10 Meq Tab.Er) 30 meq PO DAILY [facility] Last Admin: 03/23/21 08:05 Dose: 30 meq Documented by: Sodium Chloride (Sodium Chloride 0.9% 10 Ml Syringe) 10 ml FLUSH ASDIRECTED PRN PRN Reason: Keep Vein Open Discontinued Medications Bumetanide (Bumetanide 1 Mg Tab) Confirm Administered Dose 2 mg .ROUTE .[facility]-MED ONE Stop: 03/22/21 17:52 Last Admin: 03/22/21 18:36 Dose: Not Given Documented by: - Exam General: Reports: Alert, Oriented, Cooperative HEENT: Reports: Pupils Equal, Pupils Reactive, EOMI, Other (swelling unchanged) Neck: Reports: Supple Lungs: Reports: Decreased Breath Sounds (bases, ) Cardiovascular: Reports: Regular Rate, Regular Rhythm GI/Abdominal Exam: Normal Bowel Sounds Wound/Incisions: Reports: Healing Well Neurological: Reports: No New Focal Deficit
== END 2021-03-23 13:35 | disposition home health service (06) | DRG 914 ==
LOC: CC.ED 12:44 → UNDOADMIN 14:35 → CC.MS 14:35
PROVIDERS: ADMIT Physician Assistant Medical; ATTEND Family Medicine
DX: R41.0 Disorientation, unspecified (principal); S09.90XA Unspecified injury of head, initial encounter; I48.20 Chronic atrial fibrillation, unspecified; C85.90 Non-Hodgkin lymphoma, unspecified, unspecified site; I10 Essential (primary) hypertension; W18.30XA Fall on same level, unspecified, initial encounter; I50.9 Heart failure, unspecified; R77.8 Other specified abnormalities of plasma proteins; R07.9 Chest pain, unspecified; E78.00 Pure hypercholesterolemia, unspecified; I11.0 Hypertensive heart disease with heart failure; R32 Unspecified urinary incontinence; M19.90 Unspecified osteoarthritis, unspecified site; M81.0 Age-related osteoporosis without current pathological fracture; Z79.84 Long term (current) use of oral hypoglycemic drugs; E11.9 Type 2 diabetes mellitus without complications; E55.9 Vitamin D deficiency, unspecified; Z86.718 Personal history of other venous thrombosis and embolism; Z95.0 Presence of cardiac pacemaker; Z79.82 Long term (current) use of aspirin; Z79.899 Other long term (current) drug therapy; Z88.0 Allergy status to penicillin; Z98.49 Cataract extraction status, unspecified eye; Z95.2 Presence of prosthetic heart valve; Z90.49 Acquired absence of other specified parts of digestive tract; Z90.710 Acquired absence of both cervix and uterus; Y92.481 Parking lot as the place of occurrence of the external cause
CPT/HCPCS: 12013; 36415; 70450; 71045; 71046; 72125; 72170; 80048; 80053; 81003; 83735; 84484; 85025; 85610; 93005; 97161-GP; 99285-25; A9270-GY

== ENCOUNTER 2021-05-08 13:01 | Inpatient (IN) | payer MEDICARE, OTHER ==
[2021-05-08] MEDS ORDERED: Sodium Chloride 0.9% 1,000 ML IV SCH (13:45)
[2021-05-08 13:54] LABS: CHLORIDE,CL 102 mEq/L (98-106); SODIUM,NA 142 mEq/L (136-145)
[2021-05-08] MEDS ORDERED: Aspirin 81 MG Tab.Chew PO ONE (13:56)
[2021-05-08 14:15] LABS: CORONAVIRUS COVID-19 NAA NEGATIVE (NEGATIVE); RESPIRATORY SYNCYTIAL VIR NAA NEGATIVE (NEGATIVE)
[2021-05-08] MEDS ORDERED: Acetaminophen 325 MG Tab PO PRN (15:50)
[2021-05-08] MEDS ORDERED: Acetaminophen 650 MG Supp RECTAL PRN (15:50)
[2021-05-08] MEDS ORDERED: cefTRIAXone 1 GM Vial IVPUSH SCH (16:00)
[2021-05-08] MEDS ORDERED: Nitroglycerin 0.4 MG Tab.SL SL PRN (16:03)
[2021-05-08] MEDS ORDERED: Carvedilol 3.125 MG Tab PO SCH (17:30)
[2021-05-08] MEDS ORDERED: Gabapentin 300 MG Cap PO SCH (20:00)
[2021-05-08 20:16] VITALS: BP 91/37; PULSE 59
[2021-05-09] MEDS ORDERED: DULoxetine 30 MG Cap PO SCH (08:00)
[2021-05-09] MEDS ORDERED: Vitamin B Complex Cap PO SCH (08:00)
[2021-05-09] MEDS ORDERED: Lisinopril 5 MG Tab PO SCH (08:00)
[2021-05-09] MEDS ORDERED: Cholecalciferol (Vitamin D3) 25 MCG Tab PO SCH (08:00)
[2021-05-09] MEDS ORDERED: Multivitamin Tab PO SCH (08:00)
[2021-05-09] MEDS ORDERED: Aspirin 81 MG Tab.EC PO SCH (08:00)
[2021-05-09] MEDS ORDERED: atorvaSTATin 20 MG Tab PO SCH (08:00)
[2021-05-09] MEDS ORDERED: Gabapentin 300 MG Cap PO SCH (08:00)
[2021-05-09] MEDS ORDERED: Calcium Carbonate/Vitamin D3 1250 MG-5 MCG Tab PO SCH (08:00)
[2021-05-09] MEDS ORDERED: Potassium Chloride 10 MEQ Tab.ER PO SCH (08:00)
== END 2021-05-08 20:20 | DRG 690 ==
LOC: CC.ED 13:01 → CC.MS 15:46
PROVIDERS: ADMIT Nurse Practitioner Family; ATTEND Family Medicine
DX: R53.1 Weakness (principal); R41.0 Disorientation, unspecified; E77.8 Other disorders of glycoprotein metabolism; N30.01 Acute cystitis with hematuria; R77.8 Other specified abnormalities of plasma proteins; Z20.822 Contact with and (suspected) exposure to COVID-19; E78.00 Pure hypercholesterolemia, unspecified; I10 Essential (primary) hypertension; R32 Unspecified urinary incontinence; M19.90 Unspecified osteoarthritis, unspecified site; M81.0 Age-related osteoporosis without current pathological fracture; F41.9 Anxiety disorder, unspecified; C85.90 Non-Hodgkin lymphoma, unspecified, unspecified site; Z86.718 Personal history of other venous thrombosis and embolism; E11.9 Type 2 diabetes mellitus without complications; Z79.84 Long term (current) use of oral hypoglycemic drugs; E55.9 Vitamin D deficiency, unspecified; Z79.82 Long term (current) use of aspirin; Z88.0 Allergy status to penicillin; Z95.0 Presence of cardiac pacemaker; Z79.899 Other long term (current) drug therapy; Z98.49 Cataract extraction status, unspecified eye; Z90.49 Acquired absence of other specified parts of digestive tract; Z90.710 Acquired absence of both cervix and uterus; Z95.2 Presence of prosthetic heart valve
CPT/HCPCS: 0241U; 36415; 51702; 70450; 71045; 80053; 81001; 82947; 83605; 83880; 84484; 85025; 85610; 86140; 87040; 87077; 87086; 87088; 93005; A9270-GY; J0696; J7030

== ENCOUNTER 2021-06-22 08:52 | Observation (INO) | payer MEDICARE, OTHER ==
[2021-06-22] MEDS ORDERED: Sodium Chloride 0.9% 10 ML Syringe FLUSH PRN (09:07)
[2021-06-22] MEDS ORDERED: diphenhydrAMINE 50 MG/ML SDV IVPUSH ONE (09:07)
[2021-06-22] MEDS ORDERED: methylPREDNISolone Sodium Succinate 125 MG/2 ML SDV IVPUSH ONE (09:15)
[2021-06-22] MEDS ORDERED: Ondansetron 4 MG/2 ML SDV IV PRN (11:01)
[2021-06-22] MEDS ORDERED: Ondansetron 4 MG Tab.DIS PO PRN (11:01)
[2021-06-22] MEDS ORDERED: Albuterol 0.083% 2.5 MG/3 ML Neb Soln NEB PRN (11:01)
[2021-06-22] MEDS ORDERED: Acetaminophen 325 MG Tab PO PRN (11:01)
[2021-06-22] MEDS ORDERED: Nitroglycerin 0.4 MG Tab.SL SL PRN (11:05)
[2021-06-22] MEDS ORDERED: Gabapentin 100 MG Cap PO SCH ×2 (12:00→20:00)
[2021-06-22] MEDS: Famotidine 20 MG/2 ML SDV IVPUSH SCH (12:16)
[2021-06-22] MEDS: Ferrous Sulfate 324 MG Tab.EC PO SCH (20:17)
[2021-06-22] MEDS: BUMETANIDE 1 MG PO SCH (20:21)
[2021-06-22] MEDS ORDERED: 50% Dextrose in Water 50 ML Syringe IVPUSH PRN (20:41)
[2021-06-22] MEDS ORDERED: Glucagon,Human Recombinant 1 MG Vial IM PRN (20:41)
[2021-06-22] MEDS ORDERED: Insulin Lispro 100 Units/ML 3 ML Vial SUBCUT PRN (20:41)
[2021-06-23] MEDS: Famotidine 20 MG/2 ML SDV IVPUSH SCH (07:35)
[2021-06-23] MEDS: Ferrous Sulfate 324 MG Tab.EC PO SCH (07:36)
[2021-06-23] MEDS: BUMETANIDE 1 MG PO SCH (07:37)
[2021-06-23] MEDS ORDERED: DULOXETINE 60 MG PO SCH (08:00)
[2021-06-23] MEDS ORDERED: Calcium Carbonate/Vitamin D3 1250 MG-5 MCG Tab PO SCH (08:00)
[2021-06-23] MEDS ORDERED: Cholecalciferol (Vitamin D3) 25 MCG Tab PO SCH (08:00)
[2021-06-23] MEDS ORDERED: SITAGLIPTIN 100 MG PO SCH (08:00)
[2021-06-23] MEDS ORDERED: Aspirin 81 MG Tab.EC PO SCH (08:00)
[2021-06-23] MEDS ORDERED: Multivitamin Tab PO SCH (08:00)
[2021-06-23] MEDS ORDERED: Vitamin B Complex Cap PO SCH (08:00)
[2021-06-23] MEDS ORDERED: Potassium Chloride 10 MEQ Tab.ER**OWN MED PO SCH (08:00)
[2021-06-23 08:19] VITALS: BP 107/44; PULSE 61
== END 2021-06-23 10:10 | disposition home or self-care (01) ==
LOC: CC.ED 08:52 → CC.MS 10:27 → UNDOADMOB 11:00 → CC.MS 11:00 → UNDODISOB 06-23 10:10
PROVIDERS: ADMIT Physician Assistant; ATTEND Family Medicine
DX: T78.3XXA Angioneurotic edema, initial encounter (principal); R41.0 Disorientation, unspecified; K21.9 Gastro-esophageal reflux disease without esophagitis; F41.9 Anxiety disorder, unspecified; M19.90 Unspecified osteoarthritis, unspecified site; I11.0 Hypertensive heart disease with heart failure; E11.40 Type 2 diabetes mellitus with diabetic neuropathy, unspecified; E78.00 Pure hypercholesterolemia, unspecified; I50.9 Heart failure, unspecified; E55.9 Vitamin D deficiency, unspecified; N39.0 Urinary tract infection, site not specified; Z88.6 Allergy status to analgesic agent; Z88.0 Allergy status to penicillin; Z90.49 Acquired absence of other specified parts of digestive tract; Z95.0 Presence of cardiac pacemaker; Z90.711 Acquired absence of uterus with remaining cervical stump; Z79.82 Long term (current) use of aspirin; Z79.899 Other long term (current) drug therapy; Z86.718 Personal history of other venous thrombosis and embolism
CPT/HCPCS: 82947; 96374; 96375; 96376; 99285-25; A9270-GY; G0378; J1200; J1642; J1815-GY; J2930; J3490

== ENCOUNTER 2022-01-22 17:15 | Emergency (ER) | payer MEDICARE, OTHER ==
[2022-01-22] MEDS ORDERED: Sodium Chloride 0.9% 500 ML IV ONE (18:50)
[2022-01-22] MEDS ORDERED: cefTRIAXone 1 GM Vial IVPUSH ONE (19:00)
[2022-01-22] MEDS ORDERED: Azithromycin 250 MG Tab PO ONE (19:00)
[2022-02-14 13:29] LABS: CHLORIDE,CL 100 mEq/L (98-106); ESTIMATED GFR 27 mL/min (>=60); SODIUM,NA 143 mEq/L (136-145)
== END 2022-01-22 19:40 | disposition home or self-care (01) ==
LOC: CC.ED 17:15
DX: J18.9 Pneumonia, unspecified organism (principal); Z90.49 Acquired absence of other specified parts of digestive tract; Z20.822 Contact with and (suspected) exposure to COVID-19
CPT/HCPCS: 36415; 71046; 80053; 81001; 84484; 85025; 87804; 96361; 96374; 99283; 99284; A9270; J0696; J7040; U0002

== ENCOUNTER 2022-03-14 14:56 | Inpatient (IN) | payer MEDICARE, OTHER ==
[2022-03-14 15:57] LABS: CHLORIDE,CL 100 mEq/L (98-106); SODIUM,NA 142 mEq/L (136-145)
[2022-03-14 16:00] LABS: ESTIMATED GFR 24 mL/min (>=60)
[2022-03-14] MEDS ORDERED: Acetaminophen 325 MG Tab PO PRN (16:31)
[2022-03-14] MEDS ORDERED: Ondansetron 4 MG Tab.DIS PO PRN (16:31)
[2022-03-14] MEDS ORDERED: Sodium Chloride 0.9% 10 ML Syringe FLUSH PRN (16:31)
[2022-03-14] MEDS ORDERED: Furosemide 40 MG/4 ML VIAL IVPUSH SCH (16:45)
[2022-03-14 17:04] LABS: PTT,PARTIAL THROMBOPLSTIN TIME 23.2 SEC (23.2-32.3)
[2022-03-14] MEDS: Heparin Sodium 5,000 Units/ML Vial SUBCUT SCH (17:15)
[2022-03-14] MEDS: Furosemide 40 MG/4 ML VIAL IVPUSH SCH ×2 (17:15→19:57)
[2022-03-14] MEDS: Gabapentin 100 MG Cap PO SCH (19:56)
[2022-03-14] MEDS: Bumetanide 1 MG Tab PO SCH (19:57)
[2022-03-15] MEDS: Heparin Sodium 5,000 Units/ML Vial SUBCUT SCH ×2 (04:46→16:42)
[2022-03-15] MEDS: DULoxetine 30 MG Cap PO SCH (07:45)
[2022-03-15] MEDS: Bumetanide 1 MG Tab PO SCH ×2 (07:45→19:54)
[2022-03-15] MEDS: Furosemide 40 MG/4 ML VIAL IVPUSH SCH ×2 (07:46→19:54)
[2022-03-15] MEDS: Potassium Chloride 10 MEQ Tab.ER PO SCH (08:45)
[2022-03-15] MEDS: CEFPODOXIME 200 MG PO SCH (10:06)
[2022-03-15] MEDS: Sodium Chloride 0.9% 1,000 ML IV SCH ×2 (11:36→19:59)
[2022-03-15] MEDS: Gabapentin 100 MG Cap PO SCH (19:54)
[2022-03-16] MEDS: Heparin Sodium 5,000 Units/ML Vial SUBCUT SCH ×2 (07:31→20:19)
[2022-03-16] MEDS: Potassium Chloride 10 MEQ Tab.ER PO SCH (07:31)
[2022-03-16] MEDS: DULoxetine 30 MG Cap PO SCH (07:31)
[2022-03-16] MEDS: Bumetanide 1 MG Tab PO SCH ×2 (07:31→20:19)
[2022-03-16] MEDS: Furosemide 40 MG/4 ML VIAL IVPUSH SCH ×2 (07:32→20:19)
[2022-03-16] MEDS: CEFPODOXIME 200 MG PO SCH (07:35)
[2022-03-16] MEDS: Gabapentin 100 MG Cap PO SCH (20:19)
[2022-03-17] MEDS: Bumetanide 1 MG Tab PO SCH ×2 (07:31→19:53)
[2022-03-17] MEDS: Potassium Chloride 10 MEQ Tab.ER PO SCH ×2 (07:31→19:52)
[2022-03-17] MEDS: Furosemide 40 MG/4 ML VIAL IVPUSH SCH ×2 (07:31→19:53)
[2022-03-17] MEDS: Heparin Sodium 5,000 Units/ML Vial SUBCUT SCH ×2 (07:31→19:56)
[2022-03-17] MEDS: DULoxetine 30 MG Cap PO SCH (07:32)
[2022-03-17] MEDS: CEFPODOXIME 200 MG PO SCH (07:33)
[2022-03-17] MEDS: Gabapentin 100 MG Cap PO SCH (19:52)
[2022-03-18] MEDS: Furosemide 40 MG/4 ML VIAL IVPUSH SCH (07:34)
[2022-03-18] MEDS: Heparin Sodium 5,000 Units/ML Vial SUBCUT SCH (07:42)
[2022-03-18] MEDS: DULoxetine 30 MG Cap PO SCH (07:44)
[2022-03-18] MEDS: Potassium Chloride 10 MEQ Tab.ER PO SCH (07:45)
[2022-03-18] MEDS: CEFPODOXIME 200 MG PO SCH (07:45)
[2022-03-18] MEDS: Bumetanide 1 MG Tab PO SCH (07:45)
[2022-03-18 08:46] VITALS: PULSE 60
[2022-03-18 11:45] VITALS: BP 111/51
== END 2022-03-18 13:53 | disposition swing bed (61) | DRG 280 ==
LOC: CC.FCMC 14:56 → CC.MS 14:56 → UNDOADMIN 15:23 → CC.MS 16:31
PROVIDERS: ADMIT Family Medicine; ATTEND Nurse Practitioner Family
DX: I11.0 Hypertensive heart disease with heart failure (principal); I50.23 Acute on chronic systolic (congestive) heart failure; I21.A1 Myocardial infarction type 2; I48.91 Unspecified atrial fibrillation; E11.9 Type 2 diabetes mellitus without complications; Z20.822 Contact with and (suspected) exposure to COVID-19; E83.52 Hypercalcemia; F41.9 Anxiety disorder, unspecified; E78.5 Hyperlipidemia, unspecified; F32.A Depression, unspecified; F03.90 Unspecified dementia, unspecified severity, without behavioral disturbance, psychotic disturbance, mood disturbance, and anxiety; Z86.718 Personal history of other venous thrombosis and embolism; Z79.01 Long term (current) use of anticoagulants; Z95.0 Presence of cardiac pacemaker; Z79.4 Long term (current) use of insulin; Z98.42 Cataract extraction status, left eye; Z88.8 Allergy status to other drugs, medicaments and biological substances; Z98.41 Cataract extraction status, right eye; Z90.49 Acquired absence of other specified parts of digestive tract; Z95.2 Presence of prosthetic heart valve; Z90.81 Acquired absence of spleen; Z90.710 Acquired absence of both cervix and uterus
CPT/HCPCS: 36415; 51702; 71046; 80053; 81003; 82306; 82397; 82947; 83880; 83970; 84484; 85025; 85610; 85730; 86140; 93005; 97110-GP; 97116-GP; 97162-GP; A9270-GY; J1644; J1940; J7030; U0002

== ENCOUNTER 2022-03-18 13:36 | Inpatient (IN) | payer MEDICARE, OTHER ==
[2022-03-18] MEDS ORDERED: Ondansetron 4 MG Tab.DIS PO PRN (13:59)
[2022-03-18] MEDS ORDERED: Sodium Chloride 0.9% 10 ML Syringe FLUSH PRN ×2 (13:59)
[2022-03-18] MEDS ORDERED: Acetaminophen 325 MG Tab PO PRN (13:59)
[2022-03-18] MEDS: Bumetanide 1 MG Tab PO SCH (16:21)
[2022-03-18] MEDS: Potassium Chloride 10 MEQ Tab.ER PO SCH (17:34)
[2022-03-18] MEDS: Heparin Sodium 5,000 Units/ML Vial SUBCUT SCH (19:35)
[2022-03-18] MEDS ORDERED: Gabapentin 100 MG Cap PO SCH (20:00)
[2022-03-18] MEDS ORDERED: Furosemide 40 MG/4 ML VIAL IVPUSH SCH (20:00)
[2022-03-19] MEDS ORDERED: Furosemide 20 MG Tab PO SCH (08:00)
[2022-03-19] MEDS ORDERED: DULoxetine 30 MG Cap PO SCH (08:00)
[2022-03-19] MEDS ORDERED: Non-Formulary Medication 1 Each (Sitagliptin 100 MG Tablet) PO SCH (08:00)
[2022-03-19] MEDS ORDERED: CEFPODOXIME 200 MG PO SCH (08:00)
[2022-03-19] MEDS: Heparin Sodium 5,000 Units/ML Vial SUBCUT SCH (08:04)
[2022-03-19] MEDS: Potassium Chloride 10 MEQ Tab.ER PO SCH (08:05)
[2022-03-19] MEDS: Bumetanide 1 MG Tab PO SCH (08:05)
[2022-03-19 09:06] VITALS: BP 140/73; PULSE 63
== END 2022-03-19 13:10 | disposition home or self-care (01) | DRG 948 ==
LOC: CC.MS 13:57 → UNDOADMIN 13:57 → CC.MS 13:59
PROVIDERS: ADMIT Physician Assistant Medical; ATTEND Physician Assistant Medical
DX: R53.1 Weakness (principal); I50.9 Heart failure, unspecified; H54.7 Unspecified visual loss; E78.00 Pure hypercholesterolemia, unspecified; I11.0 Hypertensive heart disease with heart failure; R32 Unspecified urinary incontinence; M19.90 Unspecified osteoarthritis, unspecified site; M81.0 Age-related osteoporosis without current pathological fracture; F41.9 Anxiety disorder, unspecified; F03.90 Unspecified dementia, unspecified severity, without behavioral disturbance, psychotic disturbance, mood disturbance, and anxiety; E11.9 Type 2 diabetes mellitus without complications; Z86.19 Personal history of other infectious and parasitic diseases; E55.9 Vitamin D deficiency, unspecified; Z98.49 Cataract extraction status, unspecified eye; Z79.899 Other long term (current) drug therapy; Z88.0 Allergy status to penicillin; Z88.6 Allergy status to analgesic agent; Z88.8 Allergy status to other drugs, medicaments and biological substances; Z95.0 Presence of cardiac pacemaker; Z90.49 Acquired absence of other specified parts of digestive tract; Z90.710 Acquired absence of both cervix and uterus; Z95.2 Presence of prosthetic heart valve; E66.9 Obesity, unspecified
CPT/HCPCS: 82947; 97110-GP; A9270-GY; J1644

== ENCOUNTER 2022-06-16 11:08 | Observation (INO) | payer MEDICARE, OTHER ==
[2022-06-16 13:39] LABS: CHLORIDE,CL 97 mEq/L (98-106); SODIUM,NA 140 mEq/L (136-145)
[2022-06-16 13:40] LABS: ESTIMATED GFR 23 mL/min (>=60)
[2022-06-16] MEDS ORDERED: Acetaminophen 325 MG Tab PO PRN ×2 (14:44→15:22)
[2022-06-16] MEDS ORDERED: Docusate Sodium 100 MG Cap PO PRN (14:44)
[2022-06-16] MEDS ORDERED: Ondansetron 4 MG Tab.DIS PO PRN (14:44)
[2022-06-16] MEDS ORDERED: Sodium Chloride 0.9% 10 ML Syringe FLUSH PRN (14:44)
[2022-06-16] MEDS ORDERED: Polyethylene Glycol 3350 Powder 17 GM Packet PO PRN (14:44)
[2022-06-16] MEDS ORDERED: Sodium Chloride 0.9% 500 ML IV SCH (15:15)
[2022-06-16] MEDS: BUMETANIDE 1 MG PO SCH (17:12)
[2022-06-16] MEDS ORDERED: Gabapentin 100 MG Cap **PTOM PO SCH (20:00)
[2022-06-17] MEDS: BUMETANIDE 1 MG PO SCH (07:37)
[2022-06-17] MEDS ORDERED: Furosemide 20 MG Tab **PTOM PO SCH (08:00)
[2022-06-17] MEDS ORDERED: Aspirin 81 MG Tab.EC PO SCH (08:00)
[2022-06-17] MEDS ORDERED: CEFPODOXIME 200 MG PO SCH (08:00)
[2022-06-17] MEDS ORDERED: Potassium Chloride 10 MEQ Tab.ER **PTOM PO SCH (08:00)
[2022-06-17] MEDS ORDERED: SITAGLIPTIN 100 MG PO SCH (08:00)
[2022-06-17] MEDS ORDERED: Gabapentin 100 MG Cap **PTOM PO SCH (08:00)
[2022-06-17] MEDS ORDERED: Multivitamin Tab PO SCH (12:00)
[2022-06-17] MEDS ORDERED: Cholecalciferol (Vitamin D3) 25 MCG Tab PO SCH (12:00)
[2022-06-17] MEDS ORDERED: VITAMIN B COMPLEX PO SCH (12:00)
[2022-06-17 12:07] VITALS: BP 140/68; PULSE 71
== END 2022-06-17 13:02 | disposition home or self-care (01) ==
LOC: CC.CHC 11:08 → UNDOADMOB 14:23 → CC.MS 14:23
PROVIDERS: ADMIT Physician Assistant Medical; ATTEND Nurse Practitioner Family
DX: R53.1 Weakness (principal); R41.0 Disorientation, unspecified; E83.52 Hypercalcemia; Z79.899 Other long term (current) drug therapy
CPT/HCPCS: 36415; 71046; 80053; 81003; 82306; 82947; 83735; 83970; 85025; 85651; 97110-GP; 97161-GP; 99223; 99239; A9270-GY; G0378; G0379; J7030; U0002

== ENCOUNTER 2022-12-31 13:52 | Inpatient (IN) | payer MEDICARE, OTHER ==
[2022-12-31 14:27] LABS: APPEARANCE,URINE CLEAR (CLEAR); BILIRUBIN,URINE NEGATIVE (NEGATIVE); COLOR,URINE YELLOW (YELLOW); GLUCOSE,URINE NEGATIVE (NEGATIVE); KETONES,URINE NEGATIVE (NEGATIVE); LEUKOCYTE ESTERASE,URINE NEGATIVE (NEGATIVE); NITRITE,URINE NEGATIVE (NEGATIVE); OCCULT BLOOD,URINE NEGATIVE (NEGATIVE); PROTEIN,URINE NEGATIVE (NEGATIVE); UROBILINOGEN,URINE 0.2 EU/dL (0.2-1.0)
[2022-12-31 14:28] LABS: BASOPHILS ABSOLUTE AUTO 0.08 10^3/uL (0.00-0.50); BASOPHILS PERCENT AUTO 0.9 % (0-1); EOSINOPHILS ABSOLUTE AUTO 0.11 10^3/uL (0.00-1.50); EOSINOPHILS PERCENT AUTO 1.3 % (0-6); HEMATOCRIT 34.3 % (37.0-47.0); HEMOGLOBIN 11.1 g/dL (12.0-16.0); IMMATURE GRAN ABSOLUTE AUTO 0.03 10^3/uL (0.00-0.49); IMMATURE GRAN PERCENT AUTO 0.3 % (0.0-4.9); LYMPHOCYTES PERCENT AUTO 11.5 % (24-44); MEAN CORPUSCULAR HEMOGLOBIN 31.2 pg (27.0-32.0); MEAN CORPUSCULAR HGB CONC 32.4 g/dL (32.0-36.0); MEAN CORPUSCULAR VOLUME 96.3 fL (83.0-97.0); MONOCYTES ABSOLUTE AUTO 1.04 10^3/uL (0.00-1.50); NEUTROPHILS ABSOLUTE AUTO 6.41 x10^3/uL (1.80-8.00); PLATELET COUNT,PLT 278 10^3/uL (150-400); RED BLOOD CELL COUNT 3.56 x10^6/uL (4.00-5.50); WHITE BLOOD CELL COUNT,WBC 8.7 10^3/uL (4.0-11.0)
[2022-12-31 14:43] LABS: ALBUMIN 3.7 g/dL (3.4-5.0); BILIRUBIN TOTAL 2.5 mg/dL (0.0-1.0); C-REACTIVE PROTEIN 1.72 mg/dL (<=0.30); CALCIUM 10.9 mg/dL (8.4-10.1); CREATININE 2.5 mg/dL (0.6-1.0); EST CRCL DRUG DOSING (CG) 16.29 mL/min; POTASSIUM,K 4.2 mEq/L (3.5-5.0)
[2022-12-31] MEDS ORDERED: Sodium Chloride 0.9% 500 ML IV SCH (15:00)
[2022-12-31] MEDS ORDERED: Polyethylene Glycol 3350 Powder 17 GM Packet PO PRN (16:06)
[2022-12-31] MEDS ORDERED: Ondansetron 4 MG Tab.DIS PO PRN (16:06)
[2022-12-31] MEDS ORDERED: Ondansetron 4 MG/2 ML SDV IV PRN (16:06)
[2022-12-31] MEDS ORDERED: Bumetanide 2.5 MG/10 ML MDV IVPUSH ONE (16:06)
[2022-12-31] MEDS ORDERED: Docusate Sodium 100 MG Cap PO PRN (16:06)
[2022-12-31] MEDS ORDERED: Acetaminophen 325 MG Tab PO PRN (16:06)
[2022-12-31] MEDS: Heparin Sodium 5,000 Units/ML Vial SUBCUT SCH ×2 (17:19→23:44)
[2022-12-31] MEDS: Sodium Chloride 0.9% 1,000 ML IV SCH (17:23)
[2022-12-31] MEDS: Gabapentin 100 MG Cap PO SCH (19:57)
[2022-12-31] MEDS: DULoxetine 30 MG Cap PO SCH (19:57)
[2023-01-01] MEDS: Bumetanide 2.5 MG/10 ML MDV IVPUSH SCH ×2 (07:32→19:15)
[2023-01-01] MEDS: Heparin Sodium 5,000 Units/ML Vial SUBCUT SCH ×3 (07:34→23:43)
[2023-01-01] MEDS: Multivitamin Tab PO SCH (07:35)
[2023-01-01] MEDS: Gabapentin 100 MG Cap PO SCH ×2 (07:35→19:15)
[2023-01-01] MEDS: Potassium Chloride 10 MEQ Tab.ER PO SCH (07:35)
[2023-01-01] MEDS: Aspirin 81 MG Tab.EC PO SCH (07:35)
[2023-01-01] MEDS: Vitamin B Complex Cap PO SCH (07:35)
[2023-01-01] MEDS: Metoprolol Succinate 25 MG Tab.ER PO SCH (07:36)
[2023-01-01 08:04] LABS: BASOPHILS PERCENT AUTO 1.2 % (0-1); EOSINOPHILS ABSOLUTE AUTO 0.32 10^3/uL (0.00-1.50); EOSINOPHILS PERCENT AUTO 3.9 % (0-6); HEMATOCRIT 33.1 % (37.0-47.0); HEMOGLOBIN 10.7 g/dL (12.0-16.0); IMMATURE GRAN ABSOLUTE AUTO 0.01 10^3/uL (0.00-0.49); IMMATURE GRAN PERCENT AUTO 0.1 % (0.0-4.9); LYMPHOCYTES ABSOLUTE AUTO 1.07 10^3/uL (0.60-5.00); LYMPHOCYTES PERCENT AUTO 13.1 % (24-44); MEAN CORPUSCULAR HEMOGLOBIN 30.7 pg (27.0-32.0); MEAN CORPUSCULAR HGB CONC 32.3 g/dL (32.0-36.0); MEAN CORPUSCULAR VOLUME 95.1 fL (83.0-97.0); MONOCYTES ABSOLUTE AUTO 1.04 10^3/uL (0.00-1.50); MONOCYTES PERCENT AUTO 12.7 % (0-10); NEUTROPHILS ABSOLUTE AUTO 5.65 x10^3/uL (1.80-8.00); PLATELET COUNT,PLT 275 10^3/uL (150-400); RED BLOOD CELL COUNT 3.48 x10^6/uL (4.00-5.50); WHITE BLOOD CELL COUNT,WBC 8.2 10^3/uL (4.0-11.0)
[2023-01-01 08:32] LABS: ALBUMIN 3.2 g/dL (3.4-5.0); BILIRUBIN TOTAL 2.2 mg/dL (0.0-1.0); C-REACTIVE PROTEIN 1.55 mg/dL (<=0.30); CALCIUM 10.1 mg/dL (8.4-10.1); CREATININE 2.2 mg/dL (0.6-1.0); EST CRCL DRUG DOSING (CG) 18.52 mL/min; POTASSIUM,K 3.5 mEq/L (3.5-5.0); PROTEIN TOTAL,TP 7.2 g/dL (6.4-8.2)
[2023-01-01] MEDS: Sodium Chloride 0.9% 1,000 ML IV SCH (13:15)
[2023-01-01] MEDS: DULoxetine 30 MG Cap PO SCH (19:15)
[2023-01-02 07:50] LABS: BASOPHILS ABSOLUTE AUTO 0.08 10^3/uL (0.00-0.50); BASOPHILS PERCENT AUTO 0.8 % (0-1); EOSINOPHILS ABSOLUTE AUTO 0.33 10^3/uL (0.00-1.50); EOSINOPHILS PERCENT AUTO 3.1 % (0-6); HEMATOCRIT 34.3 % (37.0-47.0); IMMATURE GRAN ABSOLUTE AUTO 0.02 10^3/uL (0.00-0.49); IMMATURE GRAN PERCENT AUTO 0.2 % (0.0-4.9); LYMPHOCYTES ABSOLUTE AUTO 1.19 10^3/uL (0.60-5.00); LYMPHOCYTES PERCENT AUTO 11.3 % (24-44); MEAN CORPUSCULAR HEMOGLOBIN 31.1 pg (27.0-32.0); MEAN CORPUSCULAR HGB CONC 32.1 g/dL (32.0-36.0); MEAN CORPUSCULAR VOLUME 96.9 fL (83.0-97.0); MONOCYTES ABSOLUTE AUTO 1.26 10^3/uL (0.00-1.50); NEUTROPHILS ABSOLUTE AUTO 7.62 x10^3/uL (1.80-8.00); NEUTROPHILS PERCENT AUTO 72.6 % (41-71); PLATELET COUNT,PLT 253 10^3/uL (150-400); RED BLOOD CELL COUNT 3.54 x10^6/uL (4.00-5.50); WHITE BLOOD CELL COUNT,WBC 10.5 10^3/uL (4.0-11.0)
[2023-01-02 08:16] LABS: BILIRUBIN TOTAL 1.4 mg/dL (0.0-1.0); C-REACTIVE PROTEIN 1.25 mg/dL (<=0.30); CALCIUM 9.3 mg/dL (8.4-10.1); EST CRCL DRUG DOSING (CG) 20.37 mL/min; POTASSIUM,K 3.3 mEq/L (3.5-5.0); PROTEIN TOTAL,TP 7.1 g/dL (6.4-8.2)
[2023-01-02] MEDS: Heparin Sodium 5,000 Units/ML Vial SUBCUT SCH ×2 (08:23→16:05)
[2023-01-02] MEDS: Bumetanide 2.5 MG/10 ML MDV IVPUSH SCH ×2 (08:23→20:33)
[2023-01-02] MEDS: Aspirin 81 MG Tab.EC PO SCH (08:26)
[2023-01-02] MEDS: Vitamin B Complex Cap PO SCH (08:26)
[2023-01-02] MEDS: Multivitamin Tab PO SCH (08:26)
[2023-01-02] MEDS: Potassium Chloride 10 MEQ Tab.ER PO SCH (08:27)
[2023-01-02] MEDS: Gabapentin 100 MG Cap PO SCH ×2 (08:27→20:33)
[2023-01-02] MEDS: Metoprolol Succinate 25 MG Tab.ER PO SCH (08:27)
[2023-01-02] MEDS ORDERED: Potassium Chloride 10 MEQ Tab.ER PO ONE (09:51)
[2023-01-02] MEDS: Sodium Chloride 0.9% 1,000 ML IV SCH (10:31)
[2023-01-02] MEDS: DULoxetine 30 MG Cap PO SCH (20:34)
[2023-01-03] MEDS: Heparin Sodium 5,000 Units/ML Vial SUBCUT SCH ×3 (00:25→16:22)
[2023-01-03] MEDS: Sodium Chloride 0.9% 1,000 ML IV SCH (05:18)
[2023-01-03 08:14] LABS: BASOPHILS ABSOLUTE AUTO 0.06 10^3/uL (0.00-0.50); BASOPHILS PERCENT AUTO 0.6 % (0-1); EOSINOPHILS ABSOLUTE AUTO 0.34 10^3/uL (0.00-1.50); EOSINOPHILS PERCENT AUTO 3.5 % (0-6); HEMATOCRIT 32.3 % (37.0-47.0); HEMOGLOBIN 10.5 g/dL (12.0-16.0); IMMATURE GRAN ABSOLUTE AUTO 0.02 10^3/uL (0.00-0.49); IMMATURE GRAN PERCENT AUTO 0.2 % (0.0-4.9); LYMPHOCYTES ABSOLUTE AUTO 1.17 10^3/uL (0.60-5.00); MEAN CORPUSCULAR HEMOGLOBIN 31.5 pg (27.0-32.0); MEAN CORPUSCULAR HGB CONC 32.5 g/dL (32.0-36.0); MONOCYTES PERCENT AUTO 12.3 % (0-10); NEUTROPHILS ABSOLUTE AUTO 6.96 x10^3/uL (1.80-8.00); NEUTROPHILS PERCENT AUTO 71.4 % (41-71); PLATELET COUNT,PLT 252 10^3/uL (150-400); RED BLOOD CELL COUNT 3.33 x10^6/uL (4.00-5.50); WHITE BLOOD CELL COUNT,WBC 9.8 10^3/uL (4.0-11.0)
[2023-01-03] MEDS: Bumetanide 2.5 MG/10 ML MDV IVPUSH SCH ×2 (08:19→22:51)
[2023-01-03] MEDS: Potassium Chloride 10 MEQ Tab.ER PO SCH (08:21)
[2023-01-03] MEDS: Vitamin B Complex Cap PO SCH (08:23)
[2023-01-03] MEDS: Gabapentin 100 MG Cap PO SCH ×2 (08:23→20:28)
[2023-01-03] MEDS: Multivitamin Tab PO SCH (08:23)
[2023-01-03] MEDS: Aspirin 81 MG Tab.EC PO SCH (08:23)
[2023-01-03 08:34] LABS: ALBUMIN 3.1 g/dL (3.4-5.0); BILIRUBIN TOTAL 1.6 mg/dL (0.0-1.0); C-REACTIVE PROTEIN 1.8 mg/dL (<=0.30); CALCIUM 9.1 mg/dL (8.4-10.1); CREATININE 1.6 mg/dL (0.6-1.0); EST CRCL DRUG DOSING (CG) 25.46 mL/min; POTASSIUM,K 3.3 mEq/L (3.5-5.0); PROTEIN TOTAL,TP 7.2 g/dL (6.4-8.2)
[2023-01-03] MEDS ORDERED: Potassium Chloride 10 MEQ Tab.ER PO ONE (11:32)
[2023-01-03] MEDS: Metoprolol Succinate 25 MG Tab.ER PO SCH (16:08)
[2023-01-03] MEDS: DULoxetine 30 MG Cap PO SCH (20:29)
[2023-01-04] MEDS: Heparin Sodium 5,000 Units/ML Vial SUBCUT SCH ×4 (00:36→23:18)
[2023-01-04] MEDS: Bumetanide 2.5 MG/10 ML MDV IVPUSH SCH ×2 (08:02→21:05)
[2023-01-04] MEDS: Vitamin B Complex Cap PO SCH (08:03)
[2023-01-04] MEDS: Gabapentin 100 MG Cap PO SCH ×2 (08:04→19:35)
[2023-01-04] MEDS: Multivitamin Tab PO SCH (08:04)
[2023-01-04] MEDS: Aspirin 81 MG Tab.EC PO SCH (08:04)
[2023-01-04] MEDS: Potassium Chloride 10 MEQ Tab.ER PO SCH (08:04)
[2023-01-04 10:46] LABS: BASOPHILS ABSOLUTE AUTO 0.07 10^3/uL (0.00-0.50); BASOPHILS PERCENT AUTO 0.9 % (0-1); EOSINOPHILS ABSOLUTE AUTO 0.23 10^3/uL (0.00-1.50); EOSINOPHILS PERCENT AUTO 2.8 % (0-6); HEMATOCRIT 31.6 % (37.0-47.0); HEMOGLOBIN 9.9 g/dL (12.0-16.0); IMMATURE GRAN ABSOLUTE AUTO 0.03 10^3/uL (0.00-0.49); IMMATURE GRAN PERCENT AUTO 0.4 % (0.0-4.9); LYMPHOCYTES ABSOLUTE AUTO 0.88 10^3/uL (0.60-5.00); LYMPHOCYTES PERCENT AUTO 10.9 % (24-44); MEAN CORPUSCULAR HEMOGLOBIN 30.7 pg (27.0-32.0); MEAN CORPUSCULAR HGB CONC 31.3 g/dL (32.0-36.0); MEAN CORPUSCULAR VOLUME 98.1 fL (83.0-97.0); MONOCYTES ABSOLUTE AUTO 0.99 10^3/uL (0.00-1.50); MONOCYTES PERCENT AUTO 12.2 % (0-10); NEUTROPHILS ABSOLUTE AUTO 5.89 x10^3/uL (1.80-8.00); NEUTROPHILS PERCENT AUTO 72.8 % (41-71); PLATELET COUNT,PLT 242 10^3/uL (150-400); RED BLOOD CELL COUNT 3.22 x10^6/uL (4.00-5.50); WHITE BLOOD CELL COUNT,WBC 8.1 10^3/uL (4.0-11.0)
[2023-01-04 11:13] LABS: ALBUMIN 3.4 g/dL (3.4-5.0); BILIRUBIN TOTAL 1.3 mg/dL (0.0-1.0); CREATININE 1.5 mg/dL (0.6-1.0); EST CRCL DRUG DOSING (CG) 27.16 mL/min; MAGNESIUM 2.2 mg/dL (1.8-2.4); PHOSPHORUS 2.5 mg/dL (2.5-4.9); POTASSIUM,K 4.6 mEq/L (3.5-5.0); PROTEIN TOTAL,TP 7.7 g/dL (6.4-8.2)
[2023-01-04] MEDS: Metoprolol Succinate 25 MG Tab.ER PO SCH (11:56)
[2023-01-04] MEDS: DULoxetine 30 MG Cap PO SCH (19:34)
[2023-01-04] MEDS ORDERED: Haloperidol Lactate 5 MG/ML SDV IM ONE (20:29)
[2023-01-05 07:39] LABS: BASOPHILS ABSOLUTE AUTO 0.08 10^3/uL (0.00-0.50); BASOPHILS PERCENT AUTO 0.8 % (0-1); EOSINOPHILS ABSOLUTE AUTO 0.23 10^3/uL (0.00-1.50); EOSINOPHILS PERCENT AUTO 2.4 % (0-6); HEMATOCRIT 31.8 % (37.0-47.0); IMMATURE GRAN ABSOLUTE AUTO 0.02 10^3/uL (0.00-0.49); IMMATURE GRAN PERCENT AUTO 0.2 % (0.0-4.9); LYMPHOCYTES ABSOLUTE AUTO 1.46 10^3/uL (0.60-5.00); LYMPHOCYTES PERCENT AUTO 15.3 % (24-44); MEAN CORPUSCULAR HEMOGLOBIN 30.5 pg (27.0-32.0); MEAN CORPUSCULAR HGB CONC 31.4 g/dL (32.0-36.0); MONOCYTES ABSOLUTE AUTO 1.28 10^3/uL (0.00-1.50); MONOCYTES PERCENT AUTO 13.4 % (0-10); NEUTROPHILS PERCENT AUTO 67.9 % (41-71); PLATELET COUNT,PLT 231 10^3/uL (150-400); RED BLOOD CELL COUNT 3.28 x10^6/uL (4.00-5.50); WHITE BLOOD CELL COUNT,WBC 9.6 10^3/uL (4.0-11.0)
[2023-01-05 07:59] LABS: ALBUMIN 3.4 g/dL (3.4-5.0); BILIRUBIN TOTAL 1.6 mg/dL (0.0-1.0); CALCIUM 9.2 mg/dL (8.4-10.1); CREATININE 1.6 mg/dL (0.6-1.0); EST CRCL DRUG DOSING (CG) 25.46 mL/min; MAGNESIUM 2.6 mg/dL (1.8-2.4); POTASSIUM,K 5.3 mEq/L (3.5-5.0); PROTEIN TOTAL,TP 7.6 g/dL (6.4-8.2)
[2023-01-05] MEDS: Vitamin B Complex Cap PO SCH (08:29)
[2023-01-05] MEDS: Bumetanide 1 MG Tab PO SCH ×2 (08:29→16:33)
[2023-01-05] MEDS: Aspirin 81 MG Tab.EC PO SCH (08:29)
[2023-01-05] MEDS: Metoprolol Succinate 25 MG Tab.ER PO SCH (08:30)
[2023-01-05] MEDS: Heparin Sodium 5,000 Units/ML Vial SUBCUT SCH ×2 (08:30→16:33)
[2023-01-05] MEDS: Multivitamin Tab PO SCH (08:30)
[2023-01-05] MEDS: Potassium Chloride 10 MEQ Tab.ER PO SCH (08:30)
[2023-01-05] MEDS: Gabapentin 100 MG Cap PO SCH ×2 (08:35→19:48)
[2023-01-05] MEDS ORDERED: LORazepam 0.5 MG Tab PO ONE (12:05)
[2023-01-05 13:37] LABS: APPEARANCE,URINE CLEAR (CLEAR); BILIRUBIN,URINE NEGATIVE (NEGATIVE); COLOR,URINE YELLOW (YELLOW); GLUCOSE,URINE NEGATIVE (NEGATIVE); KETONES,URINE NEGATIVE (NEGATIVE); LEUKOCYTE ESTERASE,URINE NEGATIVE (NEGATIVE); NITRITE,URINE NEGATIVE (NEGATIVE); OCCULT BLOOD,URINE NEGATIVE (NEGATIVE); PH,URINE 7.5 (4.5-8.0); PROTEIN,URINE NEGATIVE (NEGATIVE); UROBILINOGEN,URINE 0.2 EU/dL (0.2-1.0)
[2023-01-05 16:55] VITALS: BP 112/59; PULSE 66
[2023-01-05] MEDS: DULoxetine 30 MG Cap PO SCH (19:49)
== END 2023-01-05 19:55 | disposition swing bed (61) | DRG 682 ==
LOC: CC.ED 13:52 → UNDOADMIN 15:25 → CC.MS 15:25
PROVIDERS: ADMIT Nurse Practitioner Family; ATTEND Nurse Practitioner Family
DX: N17.9 Acute kidney failure, unspecified (principal); I50.23 Acute on chronic systolic (congestive) heart failure; F03.911 Unspecified dementia, unspecified severity, with agitation; F05 Delirium due to known physiological condition; I13.0 Hypertensive heart and chronic kidney disease with heart failure and stage 1 through stage 4 chronic kidney disease, or unspecified chronic kidney disease; E86.0 Dehydration; E11.22 Type 2 diabetes mellitus with diabetic chronic kidney disease; M19.90 Unspecified osteoarthritis, unspecified site; F41.9 Anxiety disorder, unspecified; N18.4 Chronic kidney disease, stage 4 (severe); M81.0 Age-related osteoporosis without current pathological fracture; I50.9 Heart failure, unspecified; S00.83XA Contusion of other part of head, initial encounter; Z20.822 Contact with and (suspected) exposure to COVID-19; I08.3 Combined rheumatic disorders of mitral, aortic and tricuspid valves; E78.00 Pure hypercholesterolemia, unspecified; Z98.49 Cataract extraction status, unspecified eye; Z88.8 Allergy status to other drugs, medicaments and biological substances; Z88.0 Allergy status to penicillin; Z79.82 Long term (current) use of aspirin; Z79.84 Long term (current) use of oral hypoglycemic drugs; Z79.899 Other long term (current) drug therapy; Z95.0 Presence of cardiac pacemaker; Z95.2 Presence of prosthetic heart valve; Z90.81 Acquired absence of spleen; Z86.718 Personal history of other venous thrombosis and embolism; Z90.710 Acquired absence of both cervix and uterus; Z90.49 Acquired absence of other specified parts of digestive tract; Z98.890 Other specified postprocedural states; W19.XXXA Unspecified fall, initial encounter; Z91.81 History of falling
CPT/HCPCS: 36415; 70450; 71045; 80053; 81003; 82550; 82947; 83735; 83880; 84100; 84484; 85025; 86140; 87804; 93005; 93010; 93306; 97110-GP; 97161-GP; 99285; A9270-GY; J1630; J1644; J3490; J7030; J7040; U0002

== ENCOUNTER 2023-01-05 19:45 | Inpatient (IN) | payer MEDICARE, OTHER ==
[2023-01-05] MEDS ORDERED: Ondansetron 4 MG Tab.DIS PO PRN (20:53)
[2023-01-05] MEDS ORDERED: Ondansetron 4 MG/2 ML SDV IV PRN (20:53)
[2023-01-05] MEDS ORDERED: Sodium Chloride 0.9% 1,000 ML IV SCH (20:53)
[2023-01-05] MEDS ORDERED: Acetaminophen 325 MG Tab PO PRN (20:53)
[2023-01-05] MEDS ORDERED: Polyethylene Glycol 3350 Powder 17 GM Packet PO PRN (20:53)
[2023-01-05] MEDS ORDERED: Docusate Sodium 100 MG Cap PO PRN (20:53)
[2023-01-05] MEDS: Heparin Sodium 5,000 Units/ML Vial SUBCUT SCH (23:52)
[2023-01-06 08:14] LABS: BASOPHILS ABSOLUTE AUTO 0.09 10^3/uL (0.00-0.50); BASOPHILS PERCENT AUTO 0.9 % (0-1); EOSINOPHILS ABSOLUTE AUTO 0.19 10^3/uL (0.00-1.50); HEMATOCRIT 37.6 % (37.0-47.0); IMMATURE GRAN ABSOLUTE AUTO 0.02 10^3/uL (0.00-0.49); IMMATURE GRAN PERCENT AUTO 0.2 % (0.0-4.9); LYMPHOCYTES ABSOLUTE AUTO 1.33 10^3/uL (0.60-5.00); LYMPHOCYTES PERCENT AUTO 13.9 % (24-44); MEAN CORPUSCULAR HEMOGLOBIN 30.6 pg (27.0-32.0); MEAN CORPUSCULAR HGB CONC 29.3 g/dL (32.0-36.0); MEAN CORPUSCULAR VOLUME 104.7 fL (83.0-97.0); MONOCYTES ABSOLUTE AUTO 1.32 10^3/uL (0.00-1.50); MONOCYTES PERCENT AUTO 13.8 % (0-10); NEUTROPHILS ABSOLUTE AUTO 6.64 x10^3/uL (1.80-8.00); NEUTROPHILS PERCENT AUTO 69.2 % (41-71); PLATELET COUNT,PLT 233 10^3/uL (150-400); RED BLOOD CELL COUNT 3.59 x10^6/uL (4.00-5.50); WHITE BLOOD CELL COUNT,WBC 9.6 10^3/uL (4.0-11.0)
[2023-01-06] MEDS: Aspirin 81 MG Tab.EC PO SCH (08:26)
[2023-01-06] MEDS: Potassium Chloride 10 MEQ Tab.ER PO SCH (08:27)
[2023-01-06] MEDS: Bumetanide 1 MG Tab PO SCH ×2 (08:27→16:53)
[2023-01-06] MEDS: Heparin Sodium 5,000 Units/ML Vial SUBCUT SCH ×3 (08:27→23:34)
[2023-01-06] MEDS: Metoprolol Succinate 25 MG Tab.ER PO SCH (08:27)
[2023-01-06] MEDS: Multivitamin Tab PO SCH (08:28)
[2023-01-06] MEDS: Gabapentin 100 MG Cap PO SCH ×2 (08:28→19:27)
[2023-01-06] MEDS: Vitamin B Complex Cap PO SCH (08:29)
[2023-01-06 08:44] LABS: CALCIUM 9.2 mg/dL (8.4-10.1); CREATININE 1.6 mg/dL (0.6-1.0); EST CRCL DRUG DOSING (CG) 25.46 mL/min; POTASSIUM,K 4.7 mEq/L (3.5-5.0)
[2023-01-06] MEDS: DULoxetine 30 MG Cap PO SCH (19:27)
[2023-01-06] MEDS: Haloperidol 1 MG Tab PO SCH (19:28)
[2023-01-07] MEDS: Multivitamin Tab PO SCH (08:18)
[2023-01-07] MEDS: Gabapentin 100 MG Cap PO SCH ×2 (08:18→20:33)
[2023-01-07] MEDS: Aspirin 81 MG Tab.EC PO SCH (08:18)
[2023-01-07] MEDS: Bumetanide 1 MG Tab PO SCH ×2 (08:18→16:13)
[2023-01-07] MEDS: Vitamin B Complex Cap PO SCH (08:18)
[2023-01-07] MEDS: Potassium Chloride 10 MEQ Tab.ER PO SCH (08:18)
[2023-01-07] MEDS: Heparin Sodium 5,000 Units/ML Vial SUBCUT SCH (08:19)
[2023-01-07] MEDS: Metoprolol Succinate 25 MG Tab.ER PO SCH (08:19)
[2023-01-07] MEDS: Haloperidol 1 MG Tab PO SCH (20:34)
[2023-01-07] MEDS: DULoxetine 30 MG Cap PO SCH (20:34)
[2023-01-07] MEDS: Nystatin Topical Powder 15 GM Bottle TOP SCH (21:02)
[2023-01-08] MEDS: Vitamin B Complex Cap PO SCH (07:45)
[2023-01-08] MEDS: Multivitamin Tab PO SCH (07:45)
[2023-01-08] MEDS: Aspirin 81 MG Tab.EC PO SCH (07:45)
[2023-01-08] MEDS: Metoprolol Succinate 25 MG Tab.ER PO SCH (07:45)
[2023-01-08] MEDS: Potassium Chloride 10 MEQ Tab.ER PO SCH (07:46)
[2023-01-08] MEDS: Gabapentin 100 MG Cap PO SCH ×2 (07:46→19:34)
[2023-01-08] MEDS: Bumetanide 1 MG Tab PO SCH ×2 (07:46→15:03)
[2023-01-08] MEDS: Nystatin Topical Powder 15 GM Bottle TOP SCH ×2 (13:57→19:35)
[2023-01-08] MEDS: DULoxetine 30 MG Cap PO SCH (19:34)
[2023-01-08] MEDS: Haloperidol 1 MG Tab PO SCH (19:34)
[2023-01-08] MEDS ORDERED: Oxyquinoline/Emollient 0.3% Oint 4 OZ Canister TOP PRN (21:23)
[2023-01-09] MEDS: Bumetanide 1 MG Tab PO SCH ×2 (08:13→16:21)
[2023-01-09] MEDS: Aspirin 81 MG Tab.EC PO SCH (08:13)
[2023-01-09] MEDS: Potassium Chloride 10 MEQ Tab.ER PO SCH (08:14)
[2023-01-09] MEDS: Multivitamin Tab PO SCH (08:15)
[2023-01-09] MEDS: Gabapentin 100 MG Cap PO SCH ×2 (08:15→20:02)
[2023-01-09] MEDS: Metoprolol Succinate 25 MG Tab.ER PO SCH (08:16)
[2023-01-09] MEDS: Vitamin B Complex Cap PO SCH (08:16)
[2023-01-09] MEDS: Nystatin Topical Powder 15 GM Bottle TOP SCH ×2 (08:17→20:03)
[2023-01-09] MEDS ORDERED: Oxyquinoline/Emollient 0.3% Oint 4 OZ Canister TOP PRN (08:40)
[2023-01-09] MEDS ORDERED: traZODone 50 MG Tab PO PRN (11:53)
[2023-01-09] MEDS: DULoxetine 30 MG Cap PO SCH (20:03)
[2023-01-09] MEDS: Melatonin 3 MG Tab PO SCH (20:03)
[2023-01-09] MEDS: Oxyquinoline/Emollient 0.3% Oint 4 OZ Canister TOP SCH (20:05)
[2023-01-10] MEDS: Oxyquinoline/Emollient 0.3% Oint 4 OZ Canister TOP SCH ×2 (07:51→19:30)
[2023-01-10] MEDS: Bumetanide 1 MG Tab PO SCH ×2 (07:52→15:20)
[2023-01-10] MEDS: Aspirin 81 MG Tab.EC PO SCH (07:53)
[2023-01-10] MEDS: Potassium Chloride 10 MEQ Tab.ER PO SCH (07:53)
[2023-01-10] MEDS: Nystatin Topical Powder 15 GM Bottle TOP SCH ×2 (07:55→19:31)
[2023-01-10] MEDS: Gabapentin 100 MG Cap PO SCH ×2 (07:55→19:30)
[2023-01-10] MEDS: Metoprolol Succinate 25 MG Tab.ER PO SCH (07:56)
[2023-01-10] MEDS: Vitamin B Complex Cap PO SCH (07:56)
[2023-01-10] MEDS: Multivitamin Tab PO SCH (07:57)
[2023-01-10] MEDS: Melatonin 3 MG Tab PO SCH (19:30)
[2023-01-10] MEDS: DULoxetine 30 MG Cap PO SCH (19:30)
[2023-01-11] MEDS: Oxyquinoline/Emollient 0.3% Oint 4 OZ Canister TOP SCH ×2 (08:14→19:37)
[2023-01-11] MEDS: Bumetanide 1 MG Tab PO SCH ×2 (08:14→15:38)
[2023-01-11] MEDS: Aspirin 81 MG Tab.EC PO SCH (08:14)
[2023-01-11] MEDS: Potassium Chloride 10 MEQ Tab.ER PO SCH (08:15)
[2023-01-11] MEDS: Gabapentin 100 MG Cap PO SCH ×2 (08:15→19:34)
[2023-01-11] MEDS: Nystatin Topical Powder 15 GM Bottle TOP SCH ×2 (08:16→19:37)
[2023-01-11] MEDS: Multivitamin Tab PO SCH (08:16)
[2023-01-11] MEDS: Metoprolol Succinate 25 MG Tab.ER PO SCH (08:16)
[2023-01-11] MEDS: Vitamin B Complex Cap PO SCH (08:17)
[2023-01-11] MEDS: DULoxetine 30 MG Cap PO SCH (19:34)
[2023-01-11] MEDS: Melatonin 3 MG Tab PO SCH (19:34)
[2023-01-12] MEDS: Aspirin 81 MG Tab.EC PO SCH (07:51)
[2023-01-12] MEDS: Vitamin B Complex Cap PO SCH (07:52)
[2023-01-12] MEDS: Potassium Chloride 10 MEQ Tab.ER PO SCH (07:52)
[2023-01-12] MEDS: Metoprolol Succinate 25 MG Tab.ER PO SCH (07:53)
[2023-01-12] MEDS: Multivitamin Tab PO SCH (07:53)
[2023-01-12] MEDS: Gabapentin 100 MG Cap PO SCH (07:53)
[2023-01-12] MEDS: Bumetanide 1 MG Tab PO SCH (07:53)
[2023-01-12] MEDS: Nystatin Topical Powder 15 GM Bottle TOP SCH (07:53)
[2023-01-12] MEDS: Oxyquinoline/Emollient 0.3% Oint 4 OZ Canister TOP SCH (07:54)
[2023-01-12 07:55] VITALS: BP 125/66; PULSE 62
== END 2023-01-12 11:05 | DRG 948 ==
LOC: CC.MS 19:45 → UNDOADMIN 19:55
PROVIDERS: ADMIT Nurse Practitioner Family; ATTEND Nurse Practitioner Family
DX: R53.83 Other fatigue (principal); N18.4 Chronic kidney disease, stage 4 (severe); N17.9 Acute kidney failure, unspecified; I50.9 Heart failure, unspecified; Z20.822 Contact with and (suspected) exposure to COVID-19; R53.1 Weakness; R41.0 Disorientation, unspecified; G47.00 Insomnia, unspecified; E86.0 Dehydration; R29.6 Repeated falls; Z79.84 Long term (current) use of oral hypoglycemic drugs; Z79.82 Long term (current) use of aspirin; Z79.899 Other long term (current) drug therapy
CPT/HCPCS: 36415; 80048; 82947; 85025; 97110-GP; 97164-GP; 97530-GP; A9270-GY; J1644; J7030; U0002

== ENCOUNTER 2023-01-20 14:15 | Inpatient (IN) | payer MEDICARE, OTHER ==
[2023-01-20 14:26] LABS: BASOPHILS PERCENT AUTO 1.3 % (0-1); EOSINOPHILS ABSOLUTE AUTO 0.21 10^3/uL (0.00-1.50); EOSINOPHILS PERCENT AUTO 2.8 % (0-6); HEMOGLOBIN 10.3 g/dL (12.0-16.0); IMMATURE GRAN ABSOLUTE AUTO 0.02 10^3/uL (0.00-0.49); IMMATURE GRAN PERCENT AUTO 0.3 % (0.0-4.9); LYMPHOCYTES ABSOLUTE AUTO 0.96 10^3/uL (0.60-5.00); LYMPHOCYTES PERCENT AUTO 12.7 % (24-44); MEAN CORPUSCULAR HEMOGLOBIN 30.7 pg (27.0-32.0); MEAN CORPUSCULAR HGB CONC 32.2 g/dL (32.0-36.0); MEAN CORPUSCULAR VOLUME 95.5 fL (83.0-97.0); MONOCYTES ABSOLUTE AUTO 0.87 10^3/uL (0.00-1.50); MONOCYTES PERCENT AUTO 11.5 % (0-10); NEUTROPHILS ABSOLUTE AUTO 5.42 x10^3/uL (1.80-8.00); NEUTROPHILS PERCENT AUTO 71.4 % (41-71); PLATELET COUNT,PLT 227 10^3/uL (150-400); RED BLOOD CELL COUNT 3.35 x10^6/uL (4.00-5.50); WHITE BLOOD CELL COUNT,WBC 7.6 10^3/uL (4.0-11.0)
[2023-01-20 14:46] LABS: SEDIMENTATION RATE MANUAL 35 mm/hr (0-20)
[2023-01-20 15:17] LABS: ALANINE AMINOTRANSFERASE,ALT 28 U/L (12-78); ALBUMIN 3.5 g/dL (3.4-5.0); ALKALINE PHOSPHATASE 184 U/L (46-116); ASPARTATE AMNIOTRANSFERASE,AST 42 U/L (15-37); BILIRUBIN TOTAL 1.8 mg/dL (0.0-1.0); BLOOD UREA NITROGEN,BUN 68 mg/dL (7-18); C-REACTIVE PROTEIN 1.37 mg/dL (<=0.30); CALCIUM 9.1 mg/dL (8.4-10.1); CARBON DIOXIDE,CO2 27 mmol/L (21-32); CHLORIDE,CL 99 mEq/L (98-106); CREATININE 1.9 mg/dL (0.6-1.0); GLUCOSE RANDOM 178 mg/dL (75-99); MAGNESIUM 2.6 mg/dL (1.8-2.4); POTASSIUM,K 4.3 mEq/L (3.5-5.0); PRO B-TYPE NATRIUR PEPT,BNPPRO 20054 pg/mL (0-1000); SODIUM,NA 137 mEq/L (136-145)
[2023-01-20 15:18] LABS: ESTIMATED GFR 25 mL/min (>=60)
[2023-01-20] MEDS ORDERED: Acetaminophen 325 MG Tab PO PRN (16:11)
[2023-01-20] MEDS ORDERED: Ondansetron 4 MG Tab.DIS PO PRN (16:11)
[2023-01-20] MEDS ORDERED: Sodium Chloride 0.9% 10 ML Syringe FLUSH PRN (16:11)
[2023-01-20] MEDS ORDERED: Ondansetron 4 MG/2 ML SDV IV PRN (16:11)
[2023-01-20] MEDS: Sodium Chloride 0.9% 1,000 ML IV SCH (16:47)
[2023-01-20] MEDS: Bumetanide 2.5 MG/10 ML MDV IVPUSH SCH (16:48)
[2023-01-20] MEDS ORDERED: traZODone 50 MG Tab PO PRN (17:01)
[2023-01-20] MEDS: DULoxetine 30 MG Cap PO SCH (19:57)
[2023-01-20] MEDS: Gabapentin 100 MG Cap PO SCH (19:57)
[2023-01-21 02:40] LABS: APPEARANCE,URINE CLEAR (CLEAR); BILIRUBIN,URINE NEGATIVE (NEGATIVE); COLOR,URINE YELLOW (YELLOW); GLUCOSE,URINE NEGATIVE (NEGATIVE); KETONES,URINE NEGATIVE (NEGATIVE); LEUKOCYTE ESTERASE,URINE TRACE (NEGATIVE); NITRITE,URINE NEGATIVE (NEGATIVE); OCCULT BLOOD,URINE NEGATIVE (NEGATIVE); PH,URINE 6.5 (4.5-8.0); PROTEIN,URINE NEGATIVE (NEGATIVE); UROBILINOGEN,URINE 0.2 EU/dL (0.2-1.0)
[2023-01-21 02:47] LABS: BACTERIA,URINE NOT SEEN /HPF (NOT SEEN); EPITHELIAL CELLS,URINE NOT SEEN /HPF (NOT SEEN); MUCUS,URINE NOT SEEN /HPF (NOT SEEN); RBC,URINE NOT SEEN /HPF (0-5); WBC,URINE 0-5 /HPF (0-5)
[2023-01-21] MEDS: Sodium Chloride 0.9% 1,000 ML IV SCH (06:16)
[2023-01-21] MEDS: Potassium Chloride 10 MEQ Tab.ER PO SCH (07:37)
[2023-01-21] MEDS: Bumetanide 2.5 MG/10 ML MDV IVPUSH SCH ×2 (07:37→16:19)
[2023-01-21] MEDS: Vitamin B Complex Cap PO SCH (07:38)
[2023-01-21] MEDS: Aspirin 81 MG Tab.EC PO SCH (07:38)
[2023-01-21] MEDS: Metoprolol Succinate 25 MG Tab.ER PO SCH (07:39)
[2023-01-21] MEDS: Gabapentin 100 MG Cap PO SCH ×2 (07:40→19:35)
[2023-01-21] MEDS: Multivitamin Tab PO SCH (07:40)
[2023-01-21 07:48] LABS: BASOPHILS ABSOLUTE AUTO 0.11 10^3/uL (0.00-0.50); BASOPHILS PERCENT AUTO 1.3 % (0-1); EOSINOPHILS ABSOLUTE AUTO 0.14 10^3/uL (0.00-1.50); EOSINOPHILS PERCENT AUTO 1.6 % (0-6); HEMATOCRIT 32.8 % (37.0-47.0); HEMOGLOBIN 10.5 g/dL (12.0-16.0); IMMATURE GRAN ABSOLUTE AUTO 0.03 10^3/uL (0.00-0.49); IMMATURE GRAN PERCENT AUTO 0.3 % (0.0-4.9); LYMPHOCYTES ABSOLUTE AUTO 0.98 10^3/uL (0.60-5.00); LYMPHOCYTES PERCENT AUTO 11.2 % (24-44); MEAN CORPUSCULAR HEMOGLOBIN 30.8 pg (27.0-32.0); MEAN CORPUSCULAR VOLUME 96.2 fL (83.0-97.0); MONOCYTES ABSOLUTE AUTO 1.11 10^3/uL (0.00-1.50); MONOCYTES PERCENT AUTO 12.7 % (0-10); NEUTROPHILS ABSOLUTE AUTO 6.35 x10^3/uL (1.80-8.00); NEUTROPHILS PERCENT AUTO 72.9 % (41-71); PLATELET COUNT,PLT 250 10^3/uL (150-400); RED BLOOD CELL COUNT 3.41 x10^6/uL (4.00-5.50); WHITE BLOOD CELL COUNT,WBC 8.7 10^3/uL (4.0-11.0)
[2023-01-21 07:55] LABS: ALBUMIN 3.7 g/dL (3.4-5.0); BILIRUBIN TOTAL 2.2 mg/dL (0.0-1.0); C-REACTIVE PROTEIN 1.75 mg/dL (<=0.30); CALCIUM 9.2 mg/dL (8.4-10.1); CREATININE 2.2 mg/dL (0.6-1.0); EST CRCL DRUG DOSING (CG) 18.52 mL/min; MAGNESIUM 2.6 mg/dL (1.8-2.4); POTASSIUM,K 5.3 mEq/L (3.5-5.0)
[2023-01-21] MEDS: CEFPODOXIME 200 MG PO SCH (08:34)
[2023-01-21] MEDS ORDERED: Metolazone 5 MG Tab PO ONE (15:35)
[2023-01-21] MEDS: DULoxetine 30 MG Cap PO SCH (19:35)
[2023-01-22] MEDS: Metoprolol Succinate 25 MG Tab.ER PO SCH (07:14)
[2023-01-22] MEDS: Vitamin B Complex Cap PO SCH (07:14)
[2023-01-22] MEDS: Multivitamin Tab PO SCH (07:15)
[2023-01-22] MEDS: Aspirin 81 MG Tab.EC PO SCH (07:15)
[2023-01-22] MEDS: Gabapentin 100 MG Cap PO SCH ×2 (07:15→19:18)
[2023-01-22] MEDS: Bumetanide 2.5 MG/10 ML MDV IVPUSH SCH ×2 (07:15→17:13)
[2023-01-22] MEDS: CEFPODOXIME 200 MG PO SCH (07:16)
[2023-01-22 08:18] LABS: BASOPHILS ABSOLUTE AUTO 0.11 10^3/uL (0.00-0.50); BASOPHILS PERCENT AUTO 1.4 % (0-1); EOSINOPHILS ABSOLUTE AUTO 0.23 10^3/uL (0.00-1.50); EOSINOPHILS PERCENT AUTO 2.9 % (0-6); HEMATOCRIT 31.5 % (37.0-47.0); IMMATURE GRAN ABSOLUTE AUTO 0.02 10^3/uL (0.00-0.49); IMMATURE GRAN PERCENT AUTO 0.3 % (0.0-4.9); LYMPHOCYTES ABSOLUTE AUTO 1.15 10^3/uL (0.60-5.00); LYMPHOCYTES PERCENT AUTO 14.7 % (24-44); MEAN CORPUSCULAR HEMOGLOBIN 30.2 pg (27.0-32.0); MEAN CORPUSCULAR HGB CONC 31.7 g/dL (32.0-36.0); MEAN CORPUSCULAR VOLUME 95.2 fL (83.0-97.0); MONOCYTES ABSOLUTE AUTO 1.08 10^3/uL (0.00-1.50); MONOCYTES PERCENT AUTO 13.8 % (0-10); NEUTROPHILS ABSOLUTE AUTO 5.22 x10^3/uL (1.80-8.00); NEUTROPHILS PERCENT AUTO 66.9 % (41-71); PLATELET COUNT,PLT 241 10^3/uL (150-400); RED BLOOD CELL COUNT 3.31 x10^6/uL (4.00-5.50); WHITE BLOOD CELL COUNT,WBC 7.8 10^3/uL (4.0-11.0)
[2023-01-22 08:33] LABS: CALCIUM 8.7 mg/dL (8.4-10.1); CREATININE 2.4 mg/dL (0.6-1.0); EST CRCL DRUG DOSING (CG) 16.97 mL/min; MAGNESIUM 2.6 mg/dL (1.8-2.4); POTASSIUM,K 4.4 mEq/L (3.5-5.0)
[2023-01-22 15:07] LABS: BASOPHILS ABSOLUTE AUTO 0.09 10^3/uL (0.00-0.50); BASOPHILS PERCENT AUTO 1.1 % (0-1); EOSINOPHILS ABSOLUTE AUTO 0.24 10^3/uL (0.00-1.50); EOSINOPHILS PERCENT AUTO 2.9 % (0-6); HEMATOCRIT 29.6 % (37.0-47.0); HEMOGLOBIN 9.5 g/dL (12.0-16.0); IMMATURE GRAN ABSOLUTE AUTO 0.02 10^3/uL (0.00-0.49); IMMATURE GRAN PERCENT AUTO 0.2 % (0.0-4.9); LYMPHOCYTES ABSOLUTE AUTO 0.94 10^3/uL (0.60-5.00); LYMPHOCYTES PERCENT AUTO 11.5 % (24-44); MEAN CORPUSCULAR HEMOGLOBIN 30.4 pg (27.0-32.0); MEAN CORPUSCULAR HGB CONC 32.1 g/dL (32.0-36.0); MEAN CORPUSCULAR VOLUME 94.9 fL (83.0-97.0); MONOCYTES ABSOLUTE AUTO 1.12 10^3/uL (0.00-1.50); MONOCYTES PERCENT AUTO 13.7 % (0-10); NEUTROPHILS ABSOLUTE AUTO 5.76 x10^3/uL (1.80-8.00); NEUTROPHILS PERCENT AUTO 70.6 % (41-71); PLATELET COUNT,PLT 239 10^3/uL (150-400); RED BLOOD CELL COUNT 3.12 x10^6/uL (4.00-5.50); WHITE BLOOD CELL COUNT,WBC 8.2 10^3/uL (4.0-11.0)
[2023-01-22 15:20] LABS: ALBUMIN 3.3 g/dL (3.4-5.0); BILIRUBIN TOTAL 1.6 mg/dL (0.0-1.0); C-REACTIVE PROTEIN 2.96 mg/dL (<=0.30); CREATININE 2.4 mg/dL (0.6-1.0); EST CRCL DRUG DOSING (CG) 16.97 mL/min; POTASSIUM,K 3.9 mEq/L (3.5-5.0); PROTEIN TOTAL,TP 7.2 g/dL (6.4-8.2)
[2023-01-22] MEDS: DULoxetine 30 MG Cap PO SCH (19:18)
[2023-01-23] MEDS: Vitamin B Complex Cap PO SCH (07:33)
[2023-01-23] MEDS: Metoprolol Succinate 25 MG Tab.ER PO SCH (07:34)
[2023-01-23] MEDS: Multivitamin Tab PO SCH (07:34)
[2023-01-23] MEDS: CEFPODOXIME 200 MG PO SCH (07:35)
[2023-01-23] MEDS: Aspirin 81 MG Tab.EC PO SCH (07:35)
[2023-01-23] MEDS: Gabapentin 100 MG Cap PO SCH ×2 (07:35→19:23)
[2023-01-23] MEDS: Bumetanide 2.5 MG/10 ML MDV IVPUSH SCH ×2 (07:36→15:41)
[2023-01-23] MEDS: Potassium Chloride 10 MEQ Tab.ER PO SCH (07:42)
[2023-01-23 08:07] LABS: ALBUMIN 3.5 g/dL (3.4-5.0); BILIRUBIN TOTAL 1.5 mg/dL (0.0-1.0); CALCIUM 8.9 mg/dL (8.4-10.1); EST CRCL DRUG DOSING (CG) 20.37 mL/min; POTASSIUM,K 3.7 mEq/L (3.5-5.0); PROTEIN TOTAL,TP 7.7 g/dL (6.4-8.2)
[2023-01-23] MEDS: DULoxetine 30 MG Cap PO SCH (19:23)
[2023-01-24] MEDS: Vitamin B Complex Cap PO SCH (07:24)
[2023-01-24] MEDS: Aspirin 81 MG Tab.EC PO SCH (07:24)
[2023-01-24] MEDS: Multivitamin Tab PO SCH (07:26)
[2023-01-24] MEDS: Metoprolol Succinate 25 MG Tab.ER PO SCH (07:26)
[2023-01-24] MEDS: Potassium Chloride 10 MEQ Tab.ER PO SCH (07:26)
[2023-01-24] MEDS: CEFPODOXIME 200 MG PO SCH (07:27)
[2023-01-24] MEDS: Bumetanide 2.5 MG/10 ML MDV IVPUSH SCH (07:28)
[2023-01-24] MEDS: Gabapentin 100 MG Cap PO SCH (07:30)
[2023-01-24 08:21] LABS: BASOPHILS ABSOLUTE AUTO 0.09 10^3/uL (0.00-0.50); EOSINOPHILS ABSOLUTE AUTO 0.19 10^3/uL (0.00-1.50); EOSINOPHILS PERCENT AUTO 2.1 % (0-6); HEMATOCRIT 30.5 % (37.0-47.0); HEMOGLOBIN 9.9 g/dL (12.0-16.0); IMMATURE GRAN ABSOLUTE AUTO 0.02 10^3/uL (0.00-0.49); IMMATURE GRAN PERCENT AUTO 0.2 % (0.0-4.9); LYMPHOCYTES ABSOLUTE AUTO 0.81 10^3/uL (0.60-5.00); LYMPHOCYTES PERCENT AUTO 8.9 % (24-44); MEAN CORPUSCULAR HEMOGLOBIN 30.7 pg (27.0-32.0); MEAN CORPUSCULAR HGB CONC 32.5 g/dL (32.0-36.0); MEAN CORPUSCULAR VOLUME 94.4 fL (83.0-97.0); MONOCYTES ABSOLUTE AUTO 1.02 10^3/uL (0.00-1.50); MONOCYTES PERCENT AUTO 11.2 % (0-10); NEUTROPHILS ABSOLUTE AUTO 6.94 x10^3/uL (1.80-8.00); NEUTROPHILS PERCENT AUTO 76.6 % (41-71); PLATELET COUNT,PLT 240 10^3/uL (150-400); RED BLOOD CELL COUNT 3.23 x10^6/uL (4.00-5.50); WHITE BLOOD CELL COUNT,WBC 9.1 10^3/uL (4.0-11.0)
[2023-01-24 08:54] LABS: ALBUMIN 3.4 g/dL (3.4-5.0); BILIRUBIN TOTAL 1.3 mg/dL (0.0-1.0); EST CRCL DRUG DOSING (CG) 20.37 mL/min; POTASSIUM,K 3.4 mEq/L (3.5-5.0); PROTEIN TOTAL,TP 7.7 g/dL (6.4-8.2)
[2023-01-24] MEDS ORDERED: Potassium Chloride 10 MEQ Tab.ER PO STA (10:31)
[2023-01-24 10:38] LABS: CALCIUM 9.3 mg/dL (8.4-10.1)
[2023-01-24 12:02] VITALS: BP 115/53; PULSE 62
== END 2023-01-24 13:15 | disposition home or self-care (01) | DRG 291 ==
LOC: CC.MS 14:15 → CC.FCMC 14:15 → CC.MS 14:33 → UNDOADMOB 15:38 → INTOOBSV 15:38 → CC.MS 16:11 → OBSVTOIN 01-22 14:33
PROVIDERS: ADMIT Nurse Practitioner Family; ATTEND Nurse Practitioner Family
DX: I13.0 Hypertensive heart and chronic kidney disease with heart failure and stage 1 through stage 4 chronic kidney disease, or unspecified chronic kidney disease (principal); I50.23 Acute on chronic systolic (congestive) heart failure; N18.4 Chronic kidney disease, stage 4 (severe); N17.9 Acute kidney failure, unspecified; F03.94 Unspecified dementia, unspecified severity, with anxiety; I11.0 Hypertensive heart disease with heart failure; R41.0 Disorientation, unspecified; E11.42 Type 2 diabetes mellitus with diabetic polyneuropathy; E78.00 Pure hypercholesterolemia, unspecified; M19.90 Unspecified osteoarthritis, unspecified site; E11.22 Type 2 diabetes mellitus with diabetic chronic kidney disease; R53.1 Weakness; Z20.822 Contact with and (suspected) exposure to COVID-19; Z88.1 Allergy status to other antibiotic agents; Z88.8 Allergy status to other drugs, medicaments and biological substances; E11.40 Type 2 diabetes mellitus with diabetic neuropathy, unspecified; I25.10 Atherosclerotic heart disease of native coronary artery without angina pectoris; E78.5 Hyperlipidemia, unspecified; Z90.49 Acquired absence of other specified parts of digestive tract; Z90.710 Acquired absence of both cervix and uterus; Z98.890 Other specified postprocedural states; Z95.0 Presence of cardiac pacemaker; Z90.722 Acquired absence of ovaries, bilateral; Z96.659 Presence of unspecified artificial knee joint; Z79.82 Long term (current) use of aspirin; Z88.0 Allergy status to penicillin; Z98.49 Cataract extraction status, unspecified eye; Z79.84 Long term (current) use of oral hypoglycemic drugs; Z79.899 Other long term (current) drug therapy; Z95.2 Presence of prosthetic heart valve; Z86.73 Personal history of transient ischemic attack (TIA), and cerebral infarction without residual deficits; Z87.891 Personal history of nicotine dependence
CPT/HCPCS: 36415; 71046; 80048; 80053; 81001; 81003; 83735; 83880; 85025; 85651; 86140; 96374; 96376; 97110-GP; 97161-GP; A9270-GY; G0378; J3490; J7030; U0002

== ENCOUNTER 2023-02-02 17:57 | Inpatient (IN) | payer MEDICARE, OTHER ==
[2023-02-02] MEDS ORDERED: Glucagon,Human Recombinant 1 MG Vial IM PRN (18:08)
[2023-02-02] MEDS ORDERED: 50% Dextrose in Water 50 ML Syringe IVPUSH PRN (18:08)
[2023-02-02] MEDS ORDERED: Insulin Regular, Human 100 Units/ML 3 ML Vial IV ONE (18:08)
[2023-02-02] MEDS ORDERED: 50% Dextrose in Water 50 ML Syringe IVPUSH ONE (18:08)
[2023-02-02] MEDS ORDERED: Calcium Chloride 10% 1 GM/10 ML Syringe IV ONE (18:08)
[2023-02-02] MEDS ORDERED: Albuterol 0.083% 2.5 MG/3 ML Neb Soln NEB ONE (18:11)
[2023-02-02] MEDS ORDERED: Magnesium Sulfate/Water 2 GM in Premix Bag 1 BAG IV ONE (18:27)
[2023-02-02 18:37] LABS: BASOPHILS ABSOLUTE AUTO 0.05 10^3/uL (0.00-0.50); BASOPHILS PERCENT AUTO 0.3 % (0-1); HEMATOCRIT 35.2 % (37.0-47.0); IMMATURE GRAN ABSOLUTE AUTO 0.07 10^3/uL (0.00-0.49); IMMATURE GRAN PERCENT AUTO 0.4 % (0.0-4.9); LYMPHOCYTES ABSOLUTE AUTO 0.96 10^3/uL (0.60-5.00); LYMPHOCYTES PERCENT AUTO 6.1 % (24-44); MEAN CORPUSCULAR HGB CONC 31.3 g/dL (32.0-36.0); MEAN CORPUSCULAR VOLUME 95.9 fL (83.0-97.0); MONOCYTES ABSOLUTE AUTO 1.28 10^3/uL (0.00-1.50); MONOCYTES PERCENT AUTO 8.2 % (0-10); PLATELET COUNT,PLT 232 10^3/uL (150-400); RED BLOOD CELL COUNT 3.67 x10^6/uL (4.00-5.50); WHITE BLOOD CELL COUNT,WBC 15.7 10^3/uL (4.0-11.0)
[2023-02-02] MEDS ORDERED: cefTRIAXone 1 GM Vial IVPUSH SCH (18:45)
[2023-02-02] MEDS ORDERED: Sodium Chloride 0.9% 250 ML AdvBag IV STA (18:51)
[2023-02-02 19:04] LABS: ALANINE AMINOTRANSFERASE,ALT 93 U/L (12-78); ALBUMIN 3.7 g/dL (3.4-5.0); ALKALINE PHOSPHATASE 246 U/L (46-116); ASPARTATE AMNIOTRANSFERASE,AST 164 U/L (15-37); BILIRUBIN TOTAL 3.9 mg/dL (0.0-1.0); CALCIUM 10.2 mg/dL (8.4-10.1); CARBON DIOXIDE,CO2 15 mmol/L (21-32); CHLORIDE,CL 97 mEq/L (98-106); CREATINE KINASE,CK 136 U/L (21-215); MAGNESIUM 3.6 mg/dL (1.8-2.4); PROTEIN TOTAL,TP 8.4 g/dL (6.4-8.2); SODIUM,NA 137 mEq/L (136-145)
[2023-02-02 19:07] LABS: BLOOD UREA NITROGEN,BUN 100 mg/dL (7-18); CREATININE 3.6 mg/dL (0.6-1.0); ESTIMATED GFR 12 mL/min (>=60); GLUCOSE RANDOM 39 mg/dL (75-99); POTASSIUM,K 6.8 mEq/L (3.5-5.0)
[2023-02-02] MEDS ORDERED: Furosemide 40 MG/4 ML VIAL IVPUSH ONE (19:12)
[2023-02-02] MEDS ORDERED: Sodium Bicarbonate 100 MEQ in Dextrose 5% in Water 1,000 ML IV ONE ×2 (19:14)
[2023-02-02] MEDS ORDERED: Dextrose 5%-Lactated Ringers 1,000 ML IV SCH (19:15)
[2023-02-02] MEDS ORDERED: Sodium Chloride 0.9% 500 ML IV SCH (19:15)
[2023-02-02] MEDS ORDERED: Sodium Chloride 0.9% 50 ML ONE (19:29)
[2023-02-02] MEDS ORDERED: Polyethylene Glycol 3350 Powder 17 GM Packet ONE (19:32)
[2023-02-02] MEDS ORDERED: Morphine 2 MG/ML SYRINGE IVPUSH PRN (20:08)
[2023-02-02] MEDS ORDERED: Docusate Sodium 100 MG Cap PO PRN (20:08)
[2023-02-02 22:33] LABS: ALBUMIN 3.2 g/dL (3.4-5.0); BILIRUBIN TOTAL 3.1 mg/dL (0.0-1.0); CALCIUM 10.4 mg/dL (8.4-10.1); EST CRCL DRUG DOSING (CG) 12.13 mL/min; POTASSIUM,K 5.8 mEq/L (3.5-5.0); PROTEIN TOTAL,TP 7.5 g/dL (6.4-8.2)
[2023-02-02 22:34] LABS: CREATININE 3.6 mg/dL (0.6-1.0)
[2023-02-02] MEDS ORDERED: Sodium Chloride 0.9% 500 ML IV STA (22:37)
[2023-02-03 07:49] LABS: BASOPHILS ABSOLUTE AUTO 0.06 10^3/uL (0.00-0.50); BASOPHILS PERCENT AUTO 0.4 % (0-1); EOSINOPHILS ABSOLUTE AUTO 0.01 10^3/uL (0.00-1.50); EOSINOPHILS PERCENT AUTO 0.1 % (0-6); HEMATOCRIT 31.8 % (37.0-47.0); HEMOGLOBIN 10.1 g/dL (12.0-16.0); IMMATURE GRAN ABSOLUTE AUTO 0.04 10^3/uL (0.00-0.49); IMMATURE GRAN PERCENT AUTO 0.2 % (0.0-4.9); LYMPHOCYTES ABSOLUTE AUTO 0.84 10^3/uL (0.60-5.00); LYMPHOCYTES PERCENT AUTO 4.9 % (24-44); MEAN CORPUSCULAR HEMOGLOBIN 29.4 pg (27.0-32.0); MEAN CORPUSCULAR HGB CONC 31.8 g/dL (32.0-36.0); MEAN CORPUSCULAR VOLUME 92.7 fL (83.0-97.0); MONOCYTES ABSOLUTE AUTO 1.62 10^3/uL (0.00-1.50); MONOCYTES PERCENT AUTO 9.5 % (0-10); NEUTROPHILS ABSOLUTE AUTO 14.57 x10^3/uL (1.80-8.00); NEUTROPHILS PERCENT AUTO 84.9 % (41-71); PLATELET COUNT,PLT 224 10^3/uL (150-400); RED BLOOD CELL COUNT 3.43 x10^6/uL (4.00-5.50); WHITE BLOOD CELL COUNT,WBC 17.1 10^3/uL (4.0-11.0)
[2023-02-03 08:15] LABS: APPEARANCE,URINE CLEAR (CLEAR); BILIRUBIN,URINE NEGATIVE (NEGATIVE); COLOR,URINE YELLOW (YELLOW); GLUCOSE,URINE NEGATIVE (NEGATIVE); KETONES,URINE NEGATIVE (NEGATIVE); LEUKOCYTE ESTERASE,URINE TRACE (NEGATIVE); NITRITE,URINE NEGATIVE (NEGATIVE); OCCULT BLOOD,URINE MODERATE (NEGATIVE); PROTEIN,URINE 100 mg/dL (NEGATIVE); UROBILINOGEN,URINE 0.2 EU/dL (0.2-1.0)
[2023-02-03 08:36] LABS: AMORPHOUS SEDIMENT,URINE MODERATE /HPF (NOT SEEN); BACTERIA,URINE FEW /HPF (NOT SEEN); EPITHELIAL CELLS,URINE MODERATE /HPF (NOT SEEN); RBC,URINE 20-30 /HPF (0-5)
[2023-02-03 08:37] LABS: GRANULAR CASTS,URINE MODERATE /LPF (NOT SEEN); RENAL EPITHELIAL CELLS,URINE FEW /HPF (NOT SEEN)
[2023-02-03 08:40] LABS: ALBUMIN 3.4 g/dL (3.4-5.0); BILIRUBIN TOTAL 2.3 mg/dL (0.0-1.0); EST CRCL DRUG DOSING (CG) 11.8 mL/min; PROTEIN TOTAL,TP 7.6 g/dL (6.4-8.2)
[2023-02-03 08:43] LABS: CREATININE 3.7 mg/dL (0.6-1.0)
[2023-02-03] MEDS ORDERED: Furosemide 40 MG/4 ML VIAL IVPUSH ONE ×2 (10:04→15:49)
[2023-02-03] MEDS ORDERED: Sodium Chloride 0.9% 1,000 ML IV SCH (10:15)
[2023-02-03] MEDS ORDERED: traZODone 50 MG Tab PO PRN (12:24)
[2023-02-03] MEDS ORDERED: Metolazone 5 MG Tab PO SCH (12:30)
[2023-02-03 14:58] LABS: BASOPHILS ABSOLUTE AUTO 0.09 10^3/uL (0.00-0.50); BASOPHILS PERCENT AUTO 0.5 % (0-1); EOSINOPHILS ABSOLUTE AUTO 0.08 10^3/uL (0.00-1.50); EOSINOPHILS PERCENT AUTO 0.5 % (0-6); HEMATOCRIT 31.6 % (37.0-47.0); HEMOGLOBIN 10.2 g/dL (12.0-16.0); IMMATURE GRAN ABSOLUTE AUTO 0.06 10^3/uL (0.00-0.49); IMMATURE GRAN PERCENT AUTO 0.4 % (0.0-4.9); LYMPHOCYTES ABSOLUTE AUTO 0.97 10^3/uL (0.60-5.00); LYMPHOCYTES PERCENT AUTO 5.8 % (24-44); MEAN CORPUSCULAR HEMOGLOBIN 29.7 pg (27.0-32.0); MEAN CORPUSCULAR HGB CONC 32.3 g/dL (32.0-36.0); MEAN CORPUSCULAR VOLUME 91.9 fL (83.0-97.0); MONOCYTES ABSOLUTE AUTO 1.46 10^3/uL (0.00-1.50); MONOCYTES PERCENT AUTO 8.7 % (0-10); NEUTROPHILS ABSOLUTE AUTO 14.05 x10^3/uL (1.80-8.00); NEUTROPHILS PERCENT AUTO 84.1 % (41-71); PLATELET COUNT,PLT 215 10^3/uL (150-400); RED BLOOD CELL COUNT 3.44 x10^6/uL (4.00-5.50); WHITE BLOOD CELL COUNT,WBC 16.7 10^3/uL (4.0-11.0)
[2023-02-03 15:23] LABS: ALBUMIN 3.4 g/dL (3.4-5.0); BILIRUBIN TOTAL 2.2 mg/dL (0.0-1.0); EST CRCL DRUG DOSING (CG) 12.13 mL/min; PROTEIN TOTAL,TP 7.6 g/dL (6.4-8.2)
[2023-02-03 15:30] LABS: CREATININE 3.6 mg/dL (0.6-1.0); POTASSIUM,K 6.6 mEq/L (3.5-5.0)
[2023-02-03] MEDS ORDERED: cefTRIAXone 1 GM Vial IVPUSH SCH (16:00)
[2023-02-03] MEDS ORDERED: Bumetanide 1 MG Tab PO SCH (16:00)
[2023-02-03] MEDS ORDERED: LORazepam 2 MG/ML SDV IVPUSH PRN (17:16)
[2023-02-03] MEDS ORDERED: Morphine 2 MG/ML SYRINGE IVPUSH PRN (17:17)
[2023-02-03] MEDS ORDERED: Gabapentin 100 MG Cap PO SCH (20:00)
[2023-02-03] MEDS ORDERED: DULoxetine 30 MG Cap PO SCH (20:00)
[2023-02-03] MEDS: Morphine 2 MG/ML SYRINGE IVPUSH SCH (21:52)
[2023-02-04] MEDS: Morphine 2 MG/ML SYRINGE IVPUSH SCH ×2 (07:47→19:32)
[2023-02-04] MEDS ORDERED: Metoprolol Succinate 25 MG Tab.ER PO SCH (08:00)
[2023-02-04] MEDS ORDERED: Vitamin B Complex Cap PO SCH (08:00)
[2023-02-04] MEDS ORDERED: Multivitamin Tab PO SCH (08:00)
[2023-02-04] MEDS ORDERED: Gabapentin 100 MG Cap PO SCH (08:00)
[2023-02-04] MEDS ORDERED: Aspirin 81 MG Tab.EC PO SCH (08:00)
[2023-02-05] MEDS: Morphine 2 MG/ML SYRINGE IVPUSH SCH (07:57)
[2023-02-05 08:59] VITALS: BP 111/62; PULSE 61
== END 2023-02-05 13:50 | disposition hospice, inpatient (51) | DRG 871 ==
LOC: CC.ED 17:57 → UNDOADMIN 19:00 → CC.MS 19:00
PROVIDERS: ADMIT Nurse Practitioner; ATTEND Nurse Practitioner
DX: A41.9 Sepsis, unspecified organism (principal); K72.00 Acute and subacute hepatic failure without coma; E87.20 Acidosis, unspecified; N17.9 Acute kidney failure, unspecified; N18.4 Chronic kidney disease, stage 4 (severe); N39.0 Urinary tract infection, site not specified; Z20.822 Contact with and (suspected) exposure to COVID-19; F03.94 Unspecified dementia, unspecified severity, with anxiety; I12.9 Hypertensive chronic kidney disease with stage 1 through stage 4 chronic kidney disease, or unspecified chronic kidney disease; E11.22 Type 2 diabetes mellitus with diabetic chronic kidney disease; Z51.5 Encounter for palliative care; E11.649 Type 2 diabetes mellitus with hypoglycemia without coma; R65.20 Severe sepsis without septic shock; F41.9 Anxiety disorder, unspecified; M81.0 Age-related osteoporosis without current pathological fracture; E78.00 Pure hypercholesterolemia, unspecified; E87.5 Hyperkalemia; R53.83 Other fatigue; Z79.1 Long term (current) use of non-steroidal anti-inflammatories (NSAID); Z79.82 Long term (current) use of aspirin; Z79.899 Other long term (current) drug therapy; Z11.52 Encounter for screening for COVID-19; Z88.0 Allergy status to penicillin; Z88.8 Allergy status to other drugs, medicaments and biological substances; Z79.4 Long term (current) use of insulin; Z86.718 Personal history of other venous thrombosis and embolism; Z79.01 Long term (current) use of anticoagulants; Z95.0 Presence of cardiac pacemaker; Z87.448 Personal history of other diseases of urinary system; Z85.72 Personal history of non-Hodgkin lymphomas; Z87.19 Personal history of other diseases of the digestive system; Z98.42 Cataract extraction status, left eye; Z98.41 Cataract extraction status, right eye; Z90.710 Acquired absence of both cervix and uterus; Z95.2 Presence of prosthetic heart valve; Z90.49 Acquired absence of other specified parts of digestive tract; Z98.890 Other specified postprocedural states; Z87.440 Personal history of urinary (tract) infections
CPT/HCPCS: 36415; 51702; 70450; 71045; 80053; 81001; 82550; 82800; 82947; 83605; 83735; 84484; 85025; 87040; 93005; 93010; 96374; 96375; 99285-25; J0696; J1815-GY; J1940; J2270; J3475; J3490; J7030; J7040; J7050; J7060; J7613-GY; U0002